=== PATIENT | male | born 1960 | race Caucasian/White ===

== ENCOUNTER → 2022-02-26 16:51 | Outpatient (BNVA) | payer SELFPAY | PROVIDERS: Family Provider Family Medicine; Visit Provider Nurse Practitioner Family | DX: Z09 Encounter for follow-up examination after completed treatment for conditions other than malignant neoplasm (principal); S29.9XXA Unspecified injury of thorax, initial encounter; Z13.6 Encounter for screening for cardiovascular disorders; X58.XXXA Exposure to other specified factors, initial encounter | CPT/HCPCS: 80053; 80061; 84443 ==

== ENCOUNTER 2022-11-20 13:00 | Outpatient (CLI) | payer OTHER, SELFPAY ==
--- NOTE | 2022-11-20 13:21 | XR_ITS ---
WS: [id number] Exam: XR lumbar spine 2-3V* [id number] Date/Time of Exam: 11/20/2022 1:28 PM Reason For Exam: REDUCED ROM POSITIVE SLR There is mild compression deformity of the upper plate of L1 without significant vertebral height los s or posterior displacement. Fracture age is difficult to determine. The remaining lumbar vertebra ar e intact. Disc spaces relatively well maintained. Mild dextroscoliosis. Mild facet DJD. Aortoiliac at herosclerosis. Moderate amount retained stool seen throughout the visualized large bowel. XR/XR lumbar spine 2-3V* [id number] IMPRESSION: 1. Mild compression deformity of the upper plate of L1 without significant disp lacement. Fracture age is difficult to determine and should be correlated clini keli. Further workup with CT might be considered. 2. Mild degenerative changes and mild dextroscoliosis. 3. Constipation.
--- NOTE | 2022-11-20 13:21 | XR_ITS ---
WS: [id number] Exam: XR shoulder LT min 2V* [id number] Date/Time of Exam: 11/20/2022 1:28 PM Reason For Exam: REDUCED ROM PAIN IN SHOULDER There is a midshaft fracture of the left clavicle. This may represent an acute fracture. No other fra ctures of the shoulder are noted. Degenerative change at the AC joint. Normal soft tissues. Plate and screw fixation of multiple upper left ribs. Recommendations: Dedicated radiographic evaluation of the left clavicle could be helpful for further workup. XR/XR shoulder LT min 2V* [id number] IMPRESSION: 1. Midshaft clavicle fracture. Age indeterminate but this could be a recent fra cture. 2. AC joint DJD.
== END 2022-11-20 13:01 | disposition home or self-care (01) ==
PROVIDERS: PCP Family Medicine; Visit Provider Family Medicine
DX: S42.018A Nondisplaced fracture of sternal end of left clavicle, initial encounter for closed fracture (principal); S32.019A Unspecified fracture of first lumbar vertebra, initial encounter for closed fracture; M19.012 Primary osteoarthritis, left shoulder; M47.816 Spondylosis without myelopathy or radiculopathy, lumbar region; M41.9 Scoliosis, unspecified; K59.00 Constipation, unspecified; X58.XXXA Exposure to other specified factors, initial encounter
CPT/HCPCS: 72100; 73030

== ENCOUNTER 2023-04-23 11:03 | Emergency (ER) | payer MEDICARE, SELFPAY ==
[2023-04-23 11:15] VITALS: BP 128/75; PULSE 65; RESP 18; TEMP 36.6; O2SAT 96; BMI 26.2
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
== END 2023-04-23 11:43 | disposition home or self-care (01) ==
PROVIDERS: Emergency Provider Internal Medicine; PCP Internal Medicine
DX: L76.34 Postprocedural seroma of skin and subcutaneous tissue following other procedure (principal); Y83.8 Other surgical procedures as the cause of abnormal reaction of the patient, or of later complication, without mention of misadventure at the time of the procedure; Z87.891 Personal history of nicotine dependence
CPT/HCPCS: 99281

== ENCOUNTER → 2023-06-03 09:35 | Outpatient (BNVA) | payer MEDICARE, SELFPAY | PROVIDERS: PCP Internal Medicine; Visit Provider Surgery | DX: R22.2 Localized swelling, mass and lump, trunk (principal) | CPT/HCPCS: 99203 ==

== ENCOUNTER 2023-06-09 04:44 | Emergency (ER) | payer MEDICARE, SELFPAY ==
[2023-06-09 04:46] VITALS: BP 104/62; PULSE 56; RESP 16; TEMP 37.2; O2SAT 94; BMI 24.9
--- NOTE | 2023-06-09 05:22 | XR_ITS ---
WS: [id number] ABDOMEN 1 VIEW(S) HISTORY: Diffuse abdominal pain. COMPARISON: None available. Marked fecal retention. Increased ureter within the colon. No obstructive pattern. Well-circumscribed density measures 2.1 cm just to the RIGHT of L4-5 was not present on the most recent examination of 11/20/2022. May be fecal ball. No calcifications. Rotary scoliosis lumbar spine. IMPRESSION: Moderate constipation.
--- NOTE | 2023-06-09 05:24 | ED_ITS ---
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 C ommunication is by writing questions and having him answer verbally. He presents with epigastric pain this morning. He notes that he awoke with pain. He has had this similar pain for a few weeks now on and off. He had some dry heaving this morning. No vomiting. No fever. He had diarrhea couple of weeks ago. None currently. No history of belly surgery. He became anxious over his pain this morning and called an ambulance. Associated Symptoms: Denies chills, diarrhea, fever(s), hematochezia and vomiting Review of Systems 2 Const: Denies: fever(s), chills or body aches Eyes: Denies: change in vision Card: Denies: chest pain or palpitations Resp: Denies: dyspnea, productive cough, non-productive cough or wheezing GI: Denies: vomiting, diarrhea or hematochezia Skin/Breast: Denies: rash Neuro: Denies: headache(s), weakness in extremities, dizziness or confusion PFSH ED 2 PFSH: Family History Father Cancer Social History Smoking and tobacco/nicotine status: former use of tobacco/nicotine Alcohol intake: never Physical Exam 2 Const: COMMON NORMALS: no acute distress GENERAL APPEARANCE: cooperative; not ill appearing and not frail appearing HENMT: COMMON NORMALS: normocephalic, atraumatic and Normal external nose present HEAD & SCALP: normocephalic and atraumatic FACE & SINUS: normal facial exam and face symmetric NOSE: Normal external nose present Eye: COMMON NORMALS: Equal, round and reactive pupils present and EOMs intact bilaterally PUPIL: Yes Equal, round and reactive pupils present Neck/C-Spine: GENERAL: Yes trachea midline Chest: CHEST: Yes Symmetrical chest wall rise Resp: COMMON NORMALS: normal respiratory effort, No retractions, No use of accessory muscles and clear to auscultation bilaterally AUSCULTATION: clear to auscultation bilaterally Cardio: COMMON NORMALS: regular rate and regular rhythm RATE: regular rate RHYTHM: regular rhythm GI: COMMON NORMALS: Normal to inspection, nondistended, normoactive bowel sounds present PALPATION: Yes Tenderness to palpation present (GI) (epigastric) Extremity: COMMON NORMALS: no pedal edema Neuro: GISELE COMA SCALE: document GCS findings Gisele coma scale eye opening: Spontaneous Gisele coma scale verbal response: Orientated [place] coma scale motor response: Obey commands Howe coma scale total score: 15 S ENSORY EXAM: Yes extremities (intact) Psych: COMMON NORMALS: speech normal SPEECH: Yes normal speech Skin: COMMON NORMALS: no rashes or lesions noted GENERAL SKIN EXAM: no rashes or lesions noted Course 2 Vital Signs: Vital signs: Vital Signs Temperature 99.0 F 06/09/23 04:46 Pulse Rate 51 L 06/09/23 06:16 Respiratory Rate 17 06/09/23 06:11 Blood Pressure 117/62 06/09/23 06:16 Pulse Oximetry 93 06/09/23 06:16 Oxygen Delivery Me thod Room Air 06/09/23 06:16 MDM - Abdominal Pain Medical Decision Making 63 year old gentleman with epigastric pain, and anxiety. His vitals are stable. Platelet count is 142, this is a chronic problem for him. Other CBC parameters are normal period BMP is not remarkable. Liver enzymes are normal period CRP's mildly elevated. Lipase is normal at 23. KUB is non acute. He'll be discharged. Outpatient follow up. Return for worsening symptoms. Lab Data 06/09/23 05:46 06/09/23 05:46 Labs/Radiology: Laboratory Results WBC 6.85 10^3/uL (3.29-11.43) 06/09/23 05:46 RBC 4.96 10^6/uL (3.85-5.65) 06/09/23 05:46 Hgb 15.50 g/dL (11.27-16.99) 06/09/23 05:46 Hct 45.9 % (37-53) 06/09/23 05:46 MCV 92.5 fl (82-101) 06/09/23 05:46 MCH 31.3 pg (27-33) 06/09/23 05:46 MCHC 33.8 g/dL (30-55) 06/09/23 05:46 RDW 12.2 % (12.1-15.1) 06/09/23 05:46 Plt Count 142 10^3/cmm (157-399) L 06/09/23 05:46 MPV 10.8 fL (7.4-10.4) H 06/09/23 05:46 Neut % (Auto) 78.0 % 06/09/23 05:46 Lymph % (Auto) 10.7 % 06/09/23 05:46 [place] % (Auto) 10.5 % 06/09/23 05:46 Eos % (Auto) 0.1 % 06/09/23 05:46 Baso % (Auto) 0.1 % 06/09/23 05:46 Neut # (Auto) 5.34 10^3/uL (1.8-7.7) 06/09/23 05:46 Lymph # (Auto) 0.7 10^3/uL (0.8-4.8) L 06/09/23 05:46 [place] # (Auto) 0.7 10^3/uL (0.2-0.9) 06/09/23 05:46 Eos # (Auto) 0.0 10^3/uL (0.0-0.8) 06/09/23 05:46 Baso # (Auto) 0.0 10^3/uL (0.0-0.1) 06/09/23 05:46 Nucleated RBC % (auto) 0 % 06/09/23 05:46 Nucleated RBCs # 0.0 /100WBC 06/09/23 05:46 Sodium 141 mmol/L (136-145) 06/09/23 05:46 Potassium 3.8 mmol/L (3.5-5.1) 06/09/23 05:46 Chloride 104 mmol/L (98-107) 06/09/23 05:46 Carbon Dioxide 28 mmol/L (22-29) 06/09/23 05:46 Anion Gap 12.8 (5-19) 06/09/23 05:46 BUN 22 mg/dL (8-23) 06/09/23 05:46 Creatinine 0.8 mg/dL (0.7-1.2) 06/09/23 05:46 GFR Calculation 97.0 mL/min (90-130) 06/09/23 05:46 Glucose 119 mg/dL (65-115) H 06/09/23 05:46 Calculated Osmolality 296 mOsm/kg (285-295) H 06/09/23 05:46 Calcium 8.6 mg/dL (8.5-10.5) 06/09/23 05:46 Total Bilirubin 0.4 mg/dL (0.15-1.2) 06/09/23 05:46 AST 23 U/L (0-40) 06/09/23 05:46 ALT 36 U/L (0-41) 06/09/23 05:46 Alkaline Phosphatase 68 U/L (40-130) 06/09/23 05:46 C-Reactive Protein 29.3 mg/L (0.0-4.9) H 06/09/23 05:46 Total Protein 6.9 g/dL (6.6-8.7) 06/09/23 05:46 Albumin 3.5 g/dL (3.5-5.2) 06/09/23 05:46 Globulin 3.4 g/dL (1.3-4.6) 06/09/23 05:46 Lipase 23 U/L (13-60) 06/09/23 05:46 All radiology interpretation(s) finalized by discharge Discharge Plan Discharge Patient Disposition: Home Clinical Impression: Gastritis, Constipation Condition: Stable Prescriptions: New sucralfate 1 gram tablet 1 g PO TID 28 Days Qty: 84 0RF Prevacid 30 mg capsule,delayed release(DR/EC) 30 mg PO DAILY Qty: 30 0RF magnesium citrate Solution 300 ml PO DAILY PRN (Reason: constipation) Qty: 296 0RF No Action acetaminophen [Tylenol] 325 mg tablet See Rx Instructions PO QID PRN Rx Instructions: every 6 hours orally four times daily PRN; polyethylene glycol 3350 [Miralax] 17 gram/dose powder 17 g PO DAILY Qty: 850 0RF hydrocodone-acetaminophen 10-325 mg tablet 1 tab PO Q6H PRN (Reason: pain) 5 Days Qty: 30 0RF gabapentin 100 mg capsule 100 mg PO TID Qty: 90 5RF Naprosyn 500 mg tablet 500 mg PO BID PRN (Reason: pain) Qty: 14 0RF Discharge Orders: Discharge ED (Routine); Ordered 06/09/23 Ordered By: Willy Hannon Referrals: Vannessa Jauregui [Primary Care Provider] - 1-3 days Patient Instructions: Gastritis (ED), Constipation (ED) Activity Restrictions/Additional Instructions: Medications as directed. Return for fever, vomiting liquids despite treatment, worsening pain despite treatment, other concerning symptoms. Take the sucralfate 30 minutes prior to meals. See your doctor this week. Coding Level of Care Code ED Industrial Education Instructor for Amelia Lyman
[2023-06-09] MEDS: ondansetron 2 mg/ML SDV 2 mL 4 MG IVP (06:09)
[2023-06-09 06:11] VITALS: RESP 17
[2023-06-09] MEDS: morphine 4 mg/mL SDV 1 mL IVP (06:11)
[2023-06-09 06:16] VITALS: BP 117/62; PULSE 51; O2SAT 93
[2023-06-09 06:22] LABS: Basophils % 0.1 %; Eosinophils % 0.1 %; Hematocrit 45.9 % (37-53); Lymphocytes # 0.7 10^3/uL (0.8-4.8); Lymphocytes % 10.7 %; Mean Corpuscular HGB Conc 33.8 g/dL (30-55); Mean Corpuscular Hemoglobin 31.3 pg (27-33); Mean Corpuscular Volume 92.5 fl (82-101); Mean Platelet Volume 10.8 fL (7.4-10.4); Monocytes # 0.7 10^3/uL (0.2-0.9); Monocytes % 10.5 %; Neutrophils # 5.34 10^3/uL (1.8-7.7); Nucleated Red Blood Cells % 0 %; Platelet Count 142 10^3/cmm (157-399); Red Blood Count 4.96 10^6/uL (3.85-5.65); Red Cell Distribution Width 12.2 % (12.1-15.1); White Blood Count 6.85 10^3/uL (3.29-11.43)
[2023-06-09 06:29] LABS: Alanine Aminotransferase 36 U/L (0-41); Albumin Level 3.5 g/dL (3.5-5.2); Alkaline Phosphatase 68 U/L (40-130); Anion Gap 12.8 (5-19); Aspartate Amino Transferase 23 U/L (0-40); Blood Urea Nitrogen 22 mg/dL (8-23); C Reactive Protein 29.3 mg/L (0.0-4.9); Calcium 8.6 mg/dL (8.5-10.5); Carbon Dioxide 28 mmol/L (22-29); Chloride 104 mmol/L (98-107); Globulin 3.4 g/dL (1.3-4.6); Glucose 119 mg/dL (65-115); Lipase 23 U/L (13-60); Osmolality Calculated 296 mOsm/kg (285-295); Potassium 3.8 mmol/L (3.5-5.1); Sodium 141 mmol/L (136-145); Total Bilirubin 0.4 mg/dL (0.15-1.2); Total Protein 6.9 g/dL (6.6-8.7)
== END 2023-06-09 07:20 | disposition home or self-care (01) ==
PROVIDERS: Emergency Provider Emergency Medicine; PCP Internal Medicine
DX: K29.70 Gastritis, unspecified, without bleeding (principal); K59.00 Constipation, unspecified; Z87.891 Personal history of nicotine dependence
CPT/HCPCS: 36415; 74018; 80053; 83690; 85025; 86140; 96374; 96375; 99284; J2270; J2405

== ENCOUNTER 2023-06-13 15:19 | Outpatient (CLI) | payer MEDICARE, SELFPAY ==
--- NOTE | 2023-06-13 16:00 | US_ITS ---
WS: [id number] ULTRASOUND SOFT TISSUES LEFT upper back. HISTORY: US left sided back mass COMPARISON: None available. TECHNIQUE: 2-D and color Doppler imaging is submitted. Ultrasound directed over the palpable area along the LEFT upper back. This is also near a scar site. As per history this palpable area is at a prior thoracotomy site. There is a complex fluid collection near the scar site extending over a length of 4.8 cm x 2.8 x 1.2 cm. There is very slight increased vascularity. There is mobile debris and there is mild wall thickening of this collection. IMPRESSION: Complex fluid collection along the posterior LEFT upper back at the site of the scar and the palpable abnormality. This is at the site of the prior thoracotomy. Complex collection is most likely a proce dure fluid collection, seroma or hematoma. Abscess cannot be excluded.
== END 2023-06-13 15:20 | disposition home or self-care (01) ==
LOC: RAD 15:19
PROVIDERS: PCP Internal Medicine; Visit Provider Surgery
DX: R22.2 Localized swelling, mass and lump, trunk (principal); Z98.890 Other specified postprocedural states
CPT/HCPCS: 76882

== ENCOUNTER 2023-06-17 16:25 | Emergency (ER) | payer MEDICARE, SELFPAY ==
[2023-06-17 16:26] VITALS: BP 122/68; PULSE 54; RESP 18; TEMP 36.7; O2SAT 98; BMI 25.5
--- NOTE | 2023-06-17 16:39 | XRR_ITS ---
PROCEDURE INFORMATION: Exam: XR Abdomen Exam date and time: 06/17/2023 4:46 PM Age: 63 years old Clinical indication: Constipation TECHNIQUE: Imaging protocol: Radiologic exam of the abdomen. Views: Frontal supine view of the abdomen. 1 View. COMPARISON: CR (ABDOMEN, ) 06/09/2023 5:30 AM FINDINGS: Gastrointestinal tract: Mild diffuse gaseous distention of bowel. Intraperitoneal space: No free air or obstruction. Bones/joints: Unremarkable. XR/XR KUB portable [id number] IMPRESSION: Mild diffuse gaseous distention of bowel.
--- NOTE | 2023-06-17 16:41 | ED_ITS ---
HPI - Abdominal Pain 2 General: Chief Complaint: Abdominal Pain Stated Complaint: Constipation x 1 week Time Seen by Provider: 06/17/23 16:34 Source: patient and EMS Mode of arrival: EMS Limitations: no limitations History of Present Illness: 63-year-old male had a history of consti pation states that he has not had a good bowel movement over the last week. States he had a little decreased appetite as well and states he is just felt generally weak. Had some abdominal cramping denies any severe abdominal pain denies any vomiting no fevers denies any chest pain. Associated Symptoms: Reports constipation; Denies chills, diarrhea, dysuria, fever(s), nausea and vomiting Review of Systems 2 Const: Denies: fever(s), chills, body aches or change in appetite ENMT: Denies: throat pain or dental pain Card: Denies: chest pain Resp: Denies: dyspnea GI: Reports: abdominal pain and constipation; Denies: nausea, vomiting or diarrhea : Denies: dysuria Musc: Denies: neck pain or back pain Skin/Breast: Denies: rash Neuro: Denies: headache(s) Psych: Reports: anxiety PFSH ED 2 PFSH: Family History Father Cancer Social History Smoking and tobacco/nicotine status: former use of tobacco/nicotine Alcohol intake: never Physical Exam 2 Const: COMMON NORMALS: no acute distress, patient oriented x3 and healthy appearing HENMT: COMMON NORMALS: normocephalic and atraumatic HEAD & SCALP: n ormocephalic and atraumatic Eye: COMMON NORMALS: Equal, round and reactive pupils present and EOMs intact bilaterally PUPIL: Yes Equal, round and reactive pupils present Neck/C-Spine: COMMON NORMALS: full ROM and supple Chest: COMMONS NORMALS: normal inspection of the chest and normal palpation of entire chest wall Resp: COMMON NORMALS: normal respiratory effort, No retractions, No use of accessory muscles and clear to auscultation bilaterally AUSCULTATION: clear to auscultation bilaterally Cardio: COMMON NORMALS: regular rate, regular rhythm and No murmurs present (Cardio) RATE: regular rate RHYTHM: regular rhythm GI: COMMON NORMALS: Normal to inspection, nondistended, normoactive bowel sounds present, Soft to palpation, non-tender and no masses PALPATION: Yes Soft to palpation Extremity: COMMON NORMALS: normal to inspection and full ROM Neuro: COMMON NORMALS: patient oriented x3, moves all extremities and no focal motor deficits Psych: COMMON NORMALS: mental status grossly normal, Normal thought process present and cooperative THOUGHT PROCESS: Normal thought process present Skin: COMMON NORMALS: no rashes or lesions noted and no wounds GENERAL SKIN EXAM: no rashes or lesions noted Course 2 Vital Signs: Vital signs: Vital Signs Temperature 98.1 F 06/17/23 16:26 Pulse Rate 54 L 06/17/23 16:26 Respiratory Rate 18 06/17/23 16:26 Blood Pressure 122/68 06/17/23 16:26 Pulse Oximetry 98 06/17/23 16:26 Oxygen Delivery Me thod Room Air 06/17/23 16:26 MDM - Abdominal Pain Medical Decision Making Patient presents here with abdominal pain his exam here is benign blood work is normal no signs of acute surgical abdomen he is stable for discharge he is follow-up with PCP and return if worsening. Medical Records I reviewed the patient's medical records. Lab Data I reviewed the patient's lab results. 06/17/23 16:55 06/17/23 16:55 Labs/Radiology: Radiology Impressions KUB X-Ray 06/17/23 16:39 IMPRESSION: Mild diffuse gaseous distention of bowel. Laboratory Results WBC 6.99 10^3/uL (3.29-11.43) 06/17/23 16:55 RBC 4.61 10^6/uL (3.85-5.65) 06/17/23 16:55 Hgb 14.20 g/dL (11.27-16.99) 06/17/23 16:55 Hct 43.5 % (37-53) 06/17/23 16:55 MCV 94.4 fl (82-101) 06/17/23 16:55 MCH 30.8 pg (27-33) 06/17/23 16:55 MCHC 32.6 g/dL (30-55) 06/17/23 16:55 RDW 12.1 % (12.1-15.1) 06/17/23 16:55 Plt Count 295 10^3/cmm (157-399) 06/17/23 16:55 MPV 9.8 fL (7.4-10.4) 06/17/23 16:55 Neut % (Auto) 65.1 % 06/17/23 16:55 Lymph % (Auto) 21.3 % 06/17/23 16:55 [place] % (Auto) 10.3 % 06/17/23 16:55 Eos % (Auto) 1.1 % 06/17/23 16:55 Baso % (Auto) 0.6 % 06/17/23 16:55 Neut # (Auto) 4.55 10^3/uL (1.8-7.7) 06/17/23 16:55 Lymph # (Auto) 1.5 10^3/uL (0.8-4.8) 06/17/23 16:55 [place] # (Auto) 0.7 10^3/uL (0.2-0.9) 06/17/23 16:55 Eos # (Auto) 0.1 10^3/uL (0.0-0.8) 06/17/23 16:55 Baso # (Auto) 0.0 10^3/uL (0.0-0.1) 06/17/23 16:55 Nucleated RBC % (auto) 0 % 06/17/23 16:55 Nucleated RBCs # 0.0 /100WBC 06/17/23 16:55 Sodium 141 mmol/L (136-145) 06/17/23 16:55 Potassium 4.3 mmol/L (3.5-5.1) 06/17/23 16:55 Chloride 103 mmol/L (98-107) 06/17/23 16:55 Carbon Dioxide 30 mmol/L (22-29) H 06/17/23 16:55 Anion Gap 12.3 (5-19) 06/17/23 16:55 BUN 15 mg/dL (8-23) 06/17/23 16:55 Creatinine 0.8 mg/dL (0.7-1.2) 06/17/23 16:55 GFR Calculation 97.0 mL/min (90-130) 06/17/23 16:55 Glucose 111 mg/dL (65-115) 06/17/23 16:55 Calculated Osmolality 294 mOsm/kg (285-295) 06/17/23 16:55 Calcium 8.6 mg/dL (8.5-10.5) 06/17/23 16:55 Total Bilirubin 0.3 mg/dL (0.15-1.2) 06/17/23 16:55 AST 19 U/L (0-40) 06/17/23 16:55 ALT 41 U/L (0-41) 06/17/23 16:55 Alkaline Phosphatase 74 U/L (40-130) 06/17/23 16:55 Total Protein 6.7 g/dL (6.6-8.7) 06/17/23 16:55 Albumin 3.5 g/dL (3.5-5.2) 06/17/23 16:55 Globulin 3.2 g/dL (1.3-4.6) 06/17/23 16:55 Lipase 52 U/L (13-60) 06/17/23 16:55 All radiology interpretation(s) finalized by discharge Discharge Plan Discharge Patient Disposition: Home Clinical Impression: Abdominal pain Qualifiers: Abdominal location: generalized Qualified Code(s): R10.84 - Generalized abdominal pain Condition: Stable Prescriptions: New ondansetron 4 mg tablet,disintegrating 4 mg PO Q6H PRN (Reason: nausea and vomiting) Qty: 14 0RF No Action acetaminophen [Tylenol] 325 mg tablet See Rx Instructions PO QID PRN Rx Instructions: every 6 hours orally four times daily PRN; polyethylene glycol 3350 [Miralax] 17 gram/dose powder 17 g PO DAILY Qty: 850 0RF hydrocodone-acetaminophen 10-325 mg tablet 1 tab PO Q6H PRN (Reason: pain) 5 Days Qty: 30 0RF gabapentin 100 mg capsule 100 mg PO TID Qty: 90 5RF sucralfate 1 gram tablet 1 g PO TID 28 Days Qty: 84 0RF Prevacid 30 mg capsule,delayed release(DR/EC) 30 mg PO DAILY Qty: 30 0RF magnesium citrate Solution 300 ml PO DAILY PRN (Reason: constipation) Qty: 296 0RF Naprosyn 500 mg tablet 500 mg PO BID PRN (Reason: pain) Qty: 14 0RF Discharge Orders: Discharge ED (Routine); Ordered 06/17/23 Ordered By: Mariano Conway Referrals: Vannessa Jauregui [Primary Care Provider] - 1-3 days Discharge Diet: Advance as tolerated Discharge Activity: Resume usual activity Patient Instructions: Abdominal Pain (ED) Coding Level of Care Code ED [employer] Consultant for Amelia Lyman
[2023-06-17 17:04] LABS: Basophils % 0.6 %; Eosinophils # 0.1 10^3/uL (0.0-0.8); Eosinophils % 1.1 %; Hematocrit 43.5 % (37-53); Lymphocytes # 1.5 10^3/uL (0.8-4.8); Lymphocytes % 21.3 %; Mean Corpuscular HGB Conc 32.6 g/dL (30-55); Mean Corpuscular Hemoglobin 30.8 pg (27-33); Mean Corpuscular Volume 94.4 fl (82-101); Mean Platelet Volume 9.8 fL (7.4-10.4); Monocytes # 0.7 10^3/uL (0.2-0.9); Monocytes % 10.3 %; Neutrophils # 4.55 10^3/uL (1.8-7.7); Neutrophils % 65.1 %; Nucleated Red Blood Cells % 0 %; Platelet Count 295 10^3/cmm (157-399); Red Blood Count 4.61 10^6/uL (3.85-5.65); Red Cell Distribution Width 12.1 % (12.1-15.1); White Blood Count 6.99 10^3/uL (3.29-11.43)
[2023-06-17] MEDS: sodium chloride 0.9% 1,000 ML 999 ML IV (17:21)
[2023-06-17] MEDS: ondansetron 2 mg/ML SDV 2 mL 4 MG IVP (17:21)
[2023-06-17 17:25] LABS: Alanine Aminotransferase 41 U/L (0-41); Albumin Level 3.5 g/dL (3.5-5.2); Alkaline Phosphatase 74 U/L (40-130); Anion Gap 12.3 (5-19); Aspartate Amino Transferase 19 U/L (0-40); Blood Urea Nitrogen 15 mg/dL (8-23); Calcium 8.6 mg/dL (8.5-10.5); Carbon Dioxide 30 mmol/L (22-29); Chloride 103 mmol/L (98-107); Globulin 3.2 g/dL (1.3-4.6); Glucose 111 mg/dL (65-115); Lipase 52 U/L (13-60); Osmolality Calculated 294 mOsm/kg (285-295); Potassium 4.3 mmol/L (3.5-5.1); Sodium 141 mmol/L (136-145); Total Bilirubin 0.3 mg/dL (0.15-1.2); Total Protein 6.7 g/dL (6.6-8.7)
[2023-06-17 19:17] VITALS: BP 131/72; PULSE 50; RESP 16; O2SAT 100
== END 2023-06-17 19:18 | disposition home or self-care (01) ==
PROVIDERS: Emergency Provider Emergency Medicine; PCP Internal Medicine
DX: R10.84 Generalized abdominal pain (principal); Z87.891 Personal history of nicotine dependence
CPT/HCPCS: 74018; 80053; 83690; 85025; 96361; 96374; 99284; J2405; J7030

== ENCOUNTER → 2023-07-17 13:51 | Outpatient (BNVA) | payer MEDICARE, SELFPAY | PROVIDERS: PCP Internal Medicine; Visit Provider Surgery | DX: Z09 Encounter for follow-up examination after completed treatment for conditions other than malignant neoplasm (principal) | CPT/HCPCS: 99214 ==

== ENCOUNTER 2023-08-10 11:36 | Emergency (ER) | payer MEDICARE, SELFPAY ==
[2023-08-10 12:13] VITALS: BP 96/61; PULSE 56; RESP 14; TEMP 36.3; O2SAT 98; BMI 26.2
[2023-08-10 14:22] LABS: Influenza A by IFA negative (Negative); Influenza B by IFA negative (Negative); SARS Covid-2 Antigen negative (Negative)
--- NOTE | 2023-08-10 14:29 | W.ED.GENADLT ---
HPI - General Adult General: Chief complaint: Upper Respiratory Infection Stated complaint: sore throat, headache Time Seen by Provider: 08/10/23 14:12 Source: patient and family Mode of arrival: ambulatory Limitations: no limitations History of Present Illness: Patient is a 63-year-old male who presents to the ED today along with another individual for complaints of a sore throat. Patient unfortunately is an extremely poor historian. He brings with him a bottle of Clarithromycin. He tells me he was placed on this medication due to a stomach infection . They cannot seem to tell me anything else in regards to this however when asked if he was placed on other medications he does tell me he believes there was another antibiotic and some type of stomach pill . Patient wonders if his sore throat could be secondary to the Clarithromycin or if it is related to the stomach infection . When I asked him what symptoms he was having to be tested for presumed H. pylori he responds sore throat and then laughs and states he has had that symptoms for a long time. He then mentions a headache reporting he has pain in his frontal sinuses but then tells me he has also had this symptom intermittently for years . He is not having any difficulty eating, drinking, swallowing, controlling secretions. No neck pain or swelling. He has no visual changes or difficulty ambulating. Onset (ago): unknown Location: head (frontal sinus) and mouth (throat) Severity: mild Relieving factors: none Exacerbating factors: none Associated symptoms: Reports headache(s) (states frontal sinus headache ); Deny chest pain, dyspnea, malaise, nausea, rash or vomiting Treatments prior to arrival: other (placed on new meds for stomach infection ) Review of Systems Const: Denies: fever(s), chills, body aches, fatigue or malaise Eyes: Denies: change in vision, blurry vision, photophobia, floaters or seeing flashes ENMT: Reports: throat pain, odynophagia and sinus pain (frontal sinus); Denies: uvular edema, enlarged tonsils, hoarseness, mouth pain, swelling of lips/tongue, oral sores, ear or mastoid pain, nasal discharge or nasal congestion Card: Denies: chest pain Resp: Denies: dyspnea GI: Denies: abdominal pain, nausea, vomiting or diarrhea : Denies: flank pain, difficulty urinating, dysuria, urinary frequency, urinary urgency or urinary hesitancy Musc: Reports: back pain (related to a chronic cyst/seroma/lipoma overlying L scapular incision); Denies: neck pain, extremity pain or joint pain Skin/Breast: Denies: rash Neuro: Reports: headache(s) (states frontal sinus headache ); Denies: numbness in extremities, weakness in extremities, sensory changes, lack of coordination, difficulty walking or dizziness PFSH ED PFSH: Family History Father Cancer Social History Smoking and tobacco/nicotine status: former use of tobacco/nicotine Alcohol intake: never Substance/Drug Use: never Physical Exam Const: COMMON NORMALS: no acute distress, average body habitus, patient oriented x3, alert and well nourished EXAM LIMITATIONS: other limitations (patient is a very poor historian) GENERAL APPEARANCE: cooperative ORIENTATION/CONSCIOUSNESS: Yes awake, Yes oriented to person, Yes oriented to place and Yes oriented to time HENMT: COMMON NORMALS: normocephalic, atraumatic and Normal external nose present HEAD & SCALP: normocephalic and atraumatic FACE & SINUS: sinus tenderness frontal NOSE: Normal external nose present MOUTH: Normal oral and palatal mucosa present and lip normal THROAT: posterior oropharynx normal and tonsils normal; no uvular edema Eye: GENERAL EYE: appearance normal, both eyes and all related structures Neck/C-Spine: COMMON NORMALS: full ROM, no lymphadenopathy and no JVD GENERAL: Yes normal visual inspection, No anterior neck swelling and No submandibular swelling Resp: COMMON NORMALS: normal respiratory effort and clear to auscultation bilaterally AUSCULTATION: clear to auscultation bilaterally Cardio: COMMON NORMALS: no JVD, regular rate and regular rhythm RATE: regular rate RHYTHM: regular rhythm GI: COMMON NORMALS: Normal to inspection, nondistended, normoactive bowel sounds present, Soft to palpation and non-tender PALPATION: Yes Soft to palpation Neuro: GISELE COMA SCALE: document GCS findings Gisele coma scale eye opening: Spontaneous [place] coma scale verbal response: Orientated [place] coma scale motor response: Obey commands Latham coma scale total score: 15 COMMON NORMALS: patient oriented x3, CN's II-XII intact bilaterally, moves all extremities, no focal motor deficits, no sensory deficits noted and gait normal SENSORIUM/ORIENTATION: Yes alert, Yes oriented to person, Yes oriented to place and Yes oriented to time Skin: COMMON NORMALS: no rashes or lesions noted GENERAL SKIN EXAM: no rashes or lesions noted Course Vital Signs: Vital signs: Vital Signs Temperature 97.4 F L 08/10/23 14:41 Pulse Rate 56 L 08/10/23 14:41 Respiratory Rate 14 08/10/23 14:41 Blood Pressure 96/61 08/10/23 14:41 Pulse Oximetry 98 08/10/23 14:41 Oxygen Delivery Me thod Room Air 08/10/23 12:13 MDM - General Adult Medical Decision Making Patient is a 63-year-old or historian male here for complaints of a sore throat and frontal sinus pain. The symptoms seem to be chronic for patient however again I feel like history is limited. Based on what history was provided I am assuming he is on triple therapy for an H. pylori infection. Patient sees a small clinic out of town and I do not have access to any these records on a Friday afternoon. Ultimately he does not have any red flag signs or symptoms today in regards to his sore throat and sinus pain. Recommend he continue his current medication regimen and then follow-up with the provider that prescribes them so they can reassess symptoms. Medical Records I reviewed the patient's medical records. Lab Data Laboratory Results Influenza Type A Ag negative (Negative) 08/10/23 13:58 Influenza Type B Ag negative (Negative) 08/10/23 13:58 SARS-CoV-2 Ag (Rapid) negative (Negative) 08/10/23 13:58 No radiology studies performed this visit Discharge Plan Discharge Patient Disposition: Home Clinical Impression: Frontal sinus pain, Chronic sore throat Condition: Stable Prescriptions: No Action buspirone 10 mg tablet PO trazodone 50 mg tablet PO fluoxetine 20 mg capsule PO acetaminophen [Tylenol] 325 mg tablet See Rx Instructions PO QID PRN Rx Instructions: every 6 hours orally four times daily PRN; polyethylene glycol 3350 [Miralax] 17 gram/dose powder 17 g PO DAILY Qty: 850 0RF hydrocodone-acetaminophen 10-325 mg tablet 1 tab PO Q6H PRN (Reason: pain) 5 Days Qty: 30 0RF gabapentin 100 mg capsule 100 mg PO TID Qty: 90 5RF Prevacid 30 mg capsule,delayed release(DR/EC) 30 mg PO DAILY Qty: 30 0RF magnesium citrate Solution 300 ml PO DAILY PRN (Reason: constipation) Qty: 296 0RF ondansetron 4 mg tablet,disintegrating 4 mg PO Q6H PRN (Reason: nausea and vomiting) Qty: 14 0RF Naprosyn 500 mg tablet 500 mg PO BID PRN (Reason: pain) Qty: 14 0RF Discharge Orders: Discharge ED (Routine); Ordered 08/10/23 Ordered By: Lydia Goldsmith Referrals: Vannessa Jauregui [Primary Care Provider] - Activity Restrictions/Additional Instructions: As we discussed I want you to continue your current prescribed medications for treatment of presumed H. pylori. Following completion of therapy I would like you to follow-up with your primary care provider for further evaluation of symptoms. You may return to the emergency department for any difficulty swallowing, drooling, difficulty breathing, severe headache or visual changes, or any other concerns you may have. Coding Level of Care Code ED Information Technology Internship for Amelia Lyman
[2023-08-10 14:41] VITALS: BP 96/61; PULSE 56; RESP 14; TEMP 36.3; O2SAT 98
== END 2023-08-10 14:49 | disposition home or self-care (01) ==
PROVIDERS: Emergency Medicine; Emergency Provider Physician Assistant; PCP Internal Medicine
DX: J31.2 Chronic pharyngitis (principal); R51.9 Headache, unspecified; Z11.52 Encounter for screening for COVID-19
CPT/HCPCS: 87426; 87804; 99283

== ENCOUNTER → 2023-08-18 09:41 | Outpatient (BNVA) | payer MEDICARE, SELFPAY | PROVIDERS: PCP Internal Medicine; Visit Provider Thoracic Surgery (Cardiothoracic Vascular Surgery) | DX: R22.2 Localized swelling, mass and lump, trunk (principal); S29.9XXA Unspecified injury of thorax, initial encounter; Y99.9 Unspecified external cause status | CPT/HCPCS: 71046; 99203 ==

== ENCOUNTER → 2023-12-08 14:13 | Outpatient (BNVA) | payer MEDICARE, SELFPAY | PROVIDERS: PCP Internal Medicine; Visit Provider Thoracic Surgery (Cardiothoracic Vascular Surgery) | DX: S29.9XXA Unspecified injury of thorax, initial encounter (principal); R22.2 Localized swelling, mass and lump, trunk; V87.7XXA Person injured in collision between other specified motor vehicles (traffic), initial encounter | CPT/HCPCS: 99213 ==

== ENCOUNTER 2024-01-05 11:17 | Emergency (ER) | payer MEDICARE, SELFPAY ==
[2024-01-05 11:20] VITALS: BP 113/63; PULSE 51; RESP 20; TEMP 36.6; O2SAT 98; BMI 24.9
--- NOTE | 2024-01-05 11:22 | ECG_ITS ---
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 Measurements Intervals [place] Rate: 50 P: 35 [place]: 176 QRS: -29 QRSD: 110 T: 221 QT: 438 QTc: 403 Interpretive Statements SINUS BRADYCARDIA BORDERLINE LEFT AXIS DEVIATION [QRS AXIS < -20] ST DEVIATION AND MODERATE T-WAVE ABNORMALITY, CONSIDER LATERAL ISCHEMIA [-0.1+ mV T-WAVE IN I/aVL/V5/V6] No previous ECG available for comparison Electronically Signed On 01-05-2024 14:21:17 CDT by Gorge Evans M.D. [id number] f
--- NOTE | 2024-01-05 11:31 | XRR_ITS ---
PROCEDURE INFORMATION: Exam: XR Chest Exam date and time: 01/05/2024 11:35 AM Age: 63 years old Clinical indication: Pain; Angina pectoris; Prior surgery; Surgery date: 6+ months; Surgery type: Back and left ribs; Additional info: Cp TECHNIQUE: Imaging protocol: Radiologic exam of the chest. Views: 1 view. COMPARISON: CR XR chest 2V* [id number] 08/18/2023 10:46 AM FINDINGS: Lungs: Unremarkable. No consolidation. Pleural spaces: Unremarkable. No pleural effusion. No pneumothorax. Heart/Mediastinum: Unremarkable. No cardiomegaly. Vasculature: Aortic atherosclerotic calcification. Bones/joints: Stable postsurgical hardware at multiple left ribs. Degenerative changes along the spine and shoulders. XR/XR chest 1V portable [id number] IMPRESSION: No acute findings.
[2024-01-05 11:34] VITALS: BP 113/63; PULSE 51; RESP 19; O2SAT 97
--- NOTE | 2024-01-05 11:39 | ED_ITS ---
HPI - Dizziness 2 General: Chief Complaint: Dizziness Stated Complaint: dizziness Time Seen by Provider: 01/05/24 11:19 Source: patient and EMS Mode of arrival: EMS Limitations: no limitations History of Present Illness: HPI Narrative: 63-year-old male states that he has a hi story of anxiety states he has been feeling quite anxious he states he been having left chest pain for years he complained of dizziness to EMS but he denies feeling dizzy to me he states he just feels extremely anxious and having this cramping like feeling in his left chest that he states has been going on for years and denies any headache or shortness of breath. Associated symptoms: Reports chest pain; Denies chills, headache(s), nausea or vomiting Review of Systems 2 Const: Denies: fever(s), chills, body aches or change in appetite ENMT: Denies: throat pain or dental pain Card: Reports: chest pain Resp: Denies: dyspnea GI: Denies: abdominal pain, nausea, vomiting or diarrhea Musc: Denies: neck pain or back pain Skin/Breast: Denies: rash Neuro: Denies: headache(s) PFSH ED 2 PFSH: Family History Father Cancer Social History Smoking and tobacco/nicotine status: current every day tobacco/nicotine user cigarettes Packs smoked per day: 0.24 Alcohol intake: never Substance/Drug Use: never Physical Exam 2 Const: COMMON NORMALS: no acute distress, patient oriented x3 and healthy appearing HENMT: COMMON NORMALS: normocephalic and atraumatic HEAD & SCALP: n ormocephalic and atraumatic Eye: COMMON NORMALS: Equal, round and reactive pupils present and EOMs intact bilaterally PUPIL: Yes Equal, round and reactive pupils present Neck/C-Spine: COMMON NORMALS: full ROM and supple Chest: COMMONS NORMALS: normal inspection of the chest and normal palpation of entire chest wall Resp: COMMON NORMALS: normal respiratory effort, No retractions, No use of accessory muscles and clear to auscultation bilaterally AUSCULTATION: clear to auscultation bilaterally Cardio: COMMON NORMALS: regular rate, regular rhythm and No murmurs present (Cardio) RATE: regular rate RHYTHM: regular rhythm GI: COMMON NORMALS: Normal to inspection, nondistended, normoactive bowel sounds present, Soft to palpation, non-tender and no masses PALPATION: Yes Soft to palpation Extremity: COMMON NORMALS: normal to inspection and full ROM Neuro: COMMON NORMALS: patient oriented x3, moves all extremities and no focal motor deficits Psych: COMMON NORMALS: mental status grossly normal, Normal thought process present and cooperative THOUGHT PROCESS: Normal thought process present Skin: COMMON NORMALS: no rashes or lesions noted and no wounds GENERAL SKIN EXAM: no rashes or lesions noted Course 2 Vital Signs: Vital signs: Vital Signs Temperature 97.9 F 01/05/24 11:20 Pulse Rate 49 L 01/05/24 12:51 Respiratory Rate 19 H 01/05/24 11:34 Blood Pressure 122/66 01/05/24 12:51 Pulse Oximetry 98 01/05/24 12:51 Oxygen Delivery Me thod Room Air 01/05/24 12:51 MDM - Dizziness Medical Decision Making Patient presents here with anxiety and complaint of some dizziness early he has no dizziness here he is able ambulate without any difficulty patient's blood work imaging here is normal his chest pain has had has been for years he has no signs of ACS he is stable for discharge he is follow-up with PCP and return if worsening. Medical Records I reviewed the patient's medical records. Lab Data I reviewed the patient's lab results. 01/05/24 11:51 01/05/24 11:51 Radiology Impressions Chest X-Ray 01/05/24 11:31 IMPRESSION: No acute findings. Head CT 01/05/24 13:32 IMPRESSION: 1. No evidence of intracranial hemorrhage or mass effect. 2. No acute intracranial findings. Laboratory Results WBC 6.73 10^3/uL (3.29-11.43) 01/05/24 11:51 RBC 4.40 10^6/uL (3.85-5.65) 01/05/24 11:51 Hgb 13.20 g/dL (11.27-16.99) 01/05/24 11:51 Hct 40.8 % (37-53) 01/05/24 11:51 MCV 92.7 fl (82-101) 01/05/24 11:51 MCH 30.0 pg (27-33) 01/05/24 11:51 MCHC 32.4 g/dL (30-55) 01/05/24 11:51 RDW 13.1 % (12.1-15.1) 01/05/24 11:51 Plt Count 181 10^3/cmm (157-399) 01/05/24 11:51 MPV 10.0 fL (7.4-10.4) 01/05/24 11:51 Neut % (Auto) 68.1 % 01/05/24 11:51 Lymph % (Auto) 17.2 % 01/05/24 11:51 Carlton % (Auto) 9.7 % 01/05/24 11:51 Eos % (Auto) 3.6 % 01/05/24 11:51 Baso % (Auto) 1.0 % 01/05/24 11:51 Neut # (Auto) 4.58 10^3/uL (1.8-7.7) 01/05/24 11:51 Lymph # (Auto) 1.2 10^3/uL (0.8-4.8) 01/05/24 11:51 Carlton # (Auto) 0.7 10^3/uL (0.2-0.9) 01/05/24 11:51 Eos # (Auto) 0.2 10^3/uL (0.0-0.8) 01/05/24 11:51 Baso # (Auto) 0.1 10^3/uL (0.0-0.1) 01/05/24 11:51 Nucleated RBC % (auto) 0 % 01/05/24 11:51 Nucleated RBCs # 0.0 /100WBC 01/05/24 11:51 Sodium 135 mmol/L (136-145) L 01/05/24 11:51 Potassium 4.2 mmol/L (3.5-5.1) 01/05/24 11:51 Chloride 100 mmol/L (98-107) 01/05/24 11:51 Carbon Dioxide 23 mmol/L (22-29) 01/05/24 11:51 Anion Gap 16.2 (5-19) 01/05/24 11:51 BUN 18 mg/dL (8-23) 01/05/24 11:51 Creatinine 1.0 mg/dL (0.7-1.2) 01/05/24 11:51 GFR Calculation 75.0 mL/min (90-130) L 01/05/24 11:51 Glucose 96 mg/dL (65-115) 01/05/24 11:51 Calculated Osmolality 282 mOsm/kg (285-295) L 01/05/24 11:51 Calcium 8.4 mg/dL (8.5-10.5) L 01/05/24 11:51 Total Bilirubin 0.4 mg/dL (0.15-1.2) 01/05/24 11:51 AST 15 U/L (0-40) 01/05/24 11:51 ALT 17 U/L (0-41) 01/05/24 11:51 Alkaline Phosphatase 85 U/L (40-130) 01/05/24 11:51 Troponin T Baseline 20 ng/L (0-15) H 01/05/24 11:51 Troponin T 120 Minute 17.44 ng/L (0-15) H 01/05/24 13:52 Delta Troponin T -2.56 ABS# (0-10) L 01/05/24 13:52 Total Protein 6.8 g/dL (6.6-8.7) 01/05/24 11:51 Albumin 4.1 g/dL (3.5-5.2) 01/05/24 11:51 Globulin 2.7 g/dL (1.3-4.6) 01/05/24 11:51 All radiology interpretation(s) finalized by discharge Discharge Plan Discharge Patient Disposition: Home Clinical Impression: Anxiety, Dizziness Condition: Stable Prescriptions: No Action buspirone 10 mg tablet 15 mg PO BID trazodone 50 mg tablet 50 - 100 mg PO BEDTIME acetaminophen [Tylenol] 325 mg tablet 325 mg PO QID PRN (Reason: Pain) venlafaxine 37.5 mg Capsule,Extended Release 24hr 37.5 mg PO QAM sucralfate 1 gram tablet 1 g PO DAILY pantoprazole 40 mg tablet,delayed release (DR/EC) 40 mg PO DAILY hydroxyzine HCl 25 mg tablet 25 mg PO TID PRN (Reason: Anxiety) Vitamin D2 1,250 mcg (50,000 unit) capsule 1,250 mcg PO Q7D sertraline 50 mg tablet 20 mg PO DAILY Discharge Orders: Discharge ED (Routine); Ordered 01/05/24 Ordered By: Mariano Conway Referrals: Vannessa Jauregui [Primary Care Provider] - Discharge Diet: Advance as tolerated Discharge Activity: Resume usual activity Patient Instructions: Dizziness (ED), Anxiety (ED) Coding Level of Care Code ED Biological Science Technician for Amelia Lyman
[2024-01-05] MEDS: LORazepam 2 mg/mL INJ 1 mL 1 MG IVP (11:51)
[2024-01-05 12:00] LABS: Basophils # 0.1 10^3/uL (0.0-0.1); Eosinophils # 0.2 10^3/uL (0.0-0.8); Eosinophils % 3.6 %; Hematocrit 40.8 % (37-53); Lymphocytes # 1.2 10^3/uL (0.8-4.8); Lymphocytes % 17.2 %; Mean Corpuscular HGB Conc 32.4 g/dL (30-55); Mean Corpuscular Volume 92.7 fl (82-101); Monocytes # 0.7 10^3/uL (0.2-0.9); Monocytes % 9.7 %; Neutrophils # 4.58 10^3/uL (1.8-7.7); Neutrophils % 68.1 %; Nucleated Red Blood Cells % 0 %; Platelet Count 181 10^3/cmm (157-399); Red Cell Distribution Width 13.1 % (12.1-15.1); White Blood Count 6.73 10^3/uL (3.29-11.43)
[2024-01-05 12:20] LABS: Alanine Aminotransferase 17 U/L (0-41); Albumin Level 4.1 g/dL (3.5-5.2); Alkaline Phosphatase 85 U/L (40-130); Anion Gap 16.2 (5-19); Aspartate Amino Transferase 15 U/L (0-40); Blood Urea Nitrogen 18 mg/dL (8-23); Calcium 8.4 mg/dL (8.5-10.5); Carbon Dioxide 23 mmol/L (22-29); Chloride 100 mmol/L (98-107); Creatinine Clr Calc Pharmacy 88.0404; Globulin 2.7 g/dL (1.3-4.6); Glucose 96 mg/dL (65-115); Osmolality Calculated 282 mOsm/kg (285-295); Potassium 4.2 mmol/L (3.5-5.1); Sodium 135 mmol/L (136-145); Total Bilirubin 0.4 mg/dL (0.15-1.2); Total Protein 6.8 g/dL (6.6-8.7)
[2024-01-05 12:23] LABS: Troponin(5th) Baseline 20 ng/L (0-15)
[2024-01-05 12:51] VITALS: BP 122/66; PULSE 49; O2SAT 98
--- NOTE | 2024-01-05 13:32 | ECG_ITS ---
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 Measurements Intervals [place] Rate: 49 P: 16 NM: 158 QRS: -13 QRSD: 112 T: 28 QT: 449 QTc: 407 Interpretive Statements SINUS BRADYCARDIA MODERATE INTRAVENTRICULAR CONDUCTION DELAY [110+ ms QRS DURATION] NONSPECIFIC ST & T-WAVE ABNORMALITY Compared to ECG 01/05/2024 11:22:29 Intraventricular conduction delay now present Possible ischemia no longer present T-wave abnormality still present Electronically Signed On 01-05-2024 14:21:44 CDT by Gorge Evans M.D. [id number]
--- NOTE | 2024-01-05 13:32 | CT_ITS ---
WS: [id number] CT HEAD TECHNIQUE: Noncontrast CT of the head obtained from the skullbase to the vertex. CLINICAL INFORMATION: dizzy COMPARISON: None. DLP: 1166.[address] scans at [facility] use at least one of these dose optimization techniques: automated e xposure control; mA and/or kV adjustment per patient size (includes targeted exams where dose is matc hed to clinical indication); or iterative reconstruction. FINDINGS: No evidence of intracranial hemorrhage or mass effect. Ventricular system and basal cisterns are duffy nt. Moderate small vessel changes with moderate parenchymal volume loss. No extra-axial fluid collect ions. No evidence of mass or mass effect. Sinusitis in the ethmoid air cells and frontal ethmoidal recess. Small retention cyst in the LEFT max illary sinus and sphenoid sinus. CT/CT head wo con* [id number] IMPRESSION: 1. No evidence of intracranial hemorrhage or mass effect. 2. No acute intracranial findings.
[2024-01-05] MEDS: meclizine 25 mg tablet 50 MG PO (14:19)
[2024-01-05 14:24] LABS: Troponin 5 2HR 17.44 ng/L (0-15)
[2024-01-05 14:25] LABS: Troponin 5 2HR Delta -2.56 ABS# (0-10)
[2024-01-05 14:48] VITALS: BP 122/66; PULSE 49; RESP 19; TEMP 36.6; O2SAT 98
== END 2024-01-05 14:51 | disposition home or self-care (01) ==
PROVIDERS: Emergency Provider Emergency Medicine; PCP Internal Medicine
DX: F41.9 Anxiety disorder, unspecified (principal); R42 Dizziness and giddiness; F17.210 Nicotine dependence, cigarettes, uncomplicated
CPT/HCPCS: 36415; 70450; 71045; 80053; 84484; 85025; 93005; 96374; 99285; J2060; J8597

== ENCOUNTER 2024-03-16 10:29 | Emergency (ER) | payer MEDICARE, SELFPAY ==
[2024-03-16 10:34] VITALS: BP 116/70; PULSE 81; RESP 16; O2SAT 98
--- NOTE | 2024-03-16 10:41 | ED_ITS ---
HPI - Anxiety General: Chief Complaint: Anxiety Stated Complaint: mhe Time Seen by Provider: 03/16/24 10:38 Source: patient Mode of arrival: ambulatory Limitations: no limitations History of Present Illness: Patient is a 64-year-old male here for complaints of anxiety. Patient feels like he shakes all the time and attributes this to his anxiety. He is reportedly being seen by his PCP who has him on buspirone, hydroxyzine, and sertraline and venlafaxine but none of this is helping. Patient overall is a very poor historian. I personally saw patient back in July and he was a very poor historian then. None of his symptoms today are new. He tells me he takes trazodone to sleep but will wake up tremulous and contributes this to bad dreams . Patient is not suicidal or homicidal. MD complaint: anxiety Onset (ago): month(s) Severity: moderate History of similar episodes: Yes Provoking factors: none known Relieving factors: nothing Exacerbating factors: nothing Associated symptoms: Reports no associated symptoms; Deny chest pain, chills, fever(s), malaise, nausea, palpitations, syncope or vomiting Related Data Home Medications Medication Instructions Recorded Confirmed acetaminophen 325 mg tablet 325 mg PO QID PRN Pain 01/29/22 01/05/24 (Tylenol) buspirone 10 mg tablet 15 mg PO BID 07/17/23 01/05/24 trazodone 50 mg tablet 50 - 100 mg PO BEDTIME 07/17/23 01/05/24 ergocalciferol (vitamin D2) 1,250 1,250 mcg PO Q7D 01/05/24 01/05/24 mcg (50,000 unit) capsule (Vitamin D2) hydroxyzine HCl 25 mg tablet 25 mg PO TID PRN Anxiety 01/05/24 01/05/24 pantoprazole 40 mg tablet,delayed 40 mg PO DAILY 01/05/24 01/05/24 release sertraline 50 mg tablet 20 mg PO DAILY 01/05/24 01/05/24 sucralfate 1 gram tablet 1 g PO DAILY 01/05/24 01/05/24 venlafaxine 37.5 mg 37.5 mg PO QAM 01/05/24 01/05/24 capsule,extended release 24 hr Allergies Allergy/AdvReac Type Severity Reaction Status Date / Time cephalexin Allergy Unknown Verified 12/08/23 14:28 Review of Systems Const: Reports: other; Denies: fever(s), chills, body aches, fatigue or malaise Card: Denies: chest pain, palpitations, lightheadedness, syncope or pre-synco pe Resp: Denies: dyspnea GI: Denies: nausea or vomiting Skin/Breast: Denies: rash Neuro: Reports: involuntary movements; Denies: difficulty walking, frequent falls, dizziness, Slurred speech present or seizure-like activity PFSH ED PFSH: Family History Father Cancer Social History Smoking and tobacco/nicotine status: current every day tobacco/nicotine user cigarettes Packs smoked per day: 0.24 Alcohol intake: never Substance/Drug Use: never Physical Exam Const: COMMON NORMALS: no acute distress, average body habitus, no limitations, alert and well nourished GENERAL APPEARANCE: cooperative ORIENTATION/CONSCIOUSNESS: Yes awake, Yes oriented to person and Yes oriented to place OTHER: pt is hard of hearing and overall a poor historian; he seems to have a baseline cognitive decline for age HENMT: COMMON NORMALS: normocephalic and atraumatic HEAD & SCALP: normal to inspection, normocephalic and atraumatic Eye: GENERAL EYE: appearance normal, both eyes and all related structures Chest: OTHER: complains of pain along a L posterior thoracostomy site-has been seen for this by Dr. Robison several times Resp: COMMON NORMALS: normal respiratory effort Extremity: GENERAL: Yes normal exam except as noted Neuro: GISELE COMA SCALE: document GCS findings Gisele coma scale eye opening: Spontaneous Gisele coma scale verbal response: Orientated [place] coma scale motor response: Obey commands Gisele coma scale total score: 15 COMMON NORMALS: moves all extremities, no focal motor deficits, no sensory deficits noted and gait normal SENSORIUM/ORIENTATION: Yes alert, Yes oriented to person and Yes oriented to place OTHER: intermittently tremulous-worse to UEs Skin: COMMON NORMALS: no rashes or lesions noted GENERAL SKIN EXAM: no rashes or lesions noted Course Vital Signs: Vital signs: Vital Signs Pulse Rate 81 03/16/24 10:34 Respiratory Rate 16 03/16/24 10:34 Blood Pressure 116/70 03/16/24 10:34 Pulse Oximetry 98 03/16/24 10:34 MDM - Anxiety Medical Decision Making I question whether patient's shakiness and tremors are solely related to anxiety. I think given his cognitive decline for his age he needs evaluated by neurology to assess for other neurologic movement disorders i.e parkinson's dementia, etc. He is on several meds for anxiety but none of these are helping. Thought of adding a beta teresa to possibly help with tremors but BP already soft here so will hold off on this. Ultimately this is a chronic problem and I do not see any indication for emergent workup but I would like him to have further evaluation. No radiology studies performed this visit Discharge Plan Discharge Patient Disposition: Home Clinical Impression: Shakiness Condition: Stable Prescriptions: No Action buspirone 10 mg tablet 15 mg PO BID trazodone 50 mg tablet 50 - 100 mg PO BEDTIME acetaminophen [Tylenol] 325 mg tablet 325 mg PO QID PRN (Reason: Pain) venlafaxine 37.5 mg Capsule,Extended Release 24hr 37.5 mg PO QAM sucralfate 1 gram tablet 1 g PO DAILY pantoprazole 40 mg tablet,delayed release (DR/EC) 40 mg PO DAILY hydroxyzine HCl 25 mg tablet 25 mg PO TID PRN (Reason: Anxiety) Vitamin D2 1,250 mcg (50,000 unit) capsule 1,250 mcg PO Q7D sertraline 50 mg tablet 20 mg PO DAILY Discharge Orders: Discharge ED (Routine); Ordered 03/16/24 Ordered By: Lydia Goldsmith Referrals: Vannessa Jauregui [Primary Care Provider] - Activity Restrictions/Additional Instructions: As we discussed, I would like case management to help set you up with a follow- up appointment with neurology for further evaluation of your tremors as these may not be related to anxiety. You may continue to follow-up with your primary care provider in the meantime. Coding Level of Care Code ED Development Specialist for Amelia Lyman
[2024-03-16] MEDS: LORazepam 2 mg/mL INJ 1 mL 1 MG IM (11:01)
[2024-03-16 11:15] VITALS: BP 112/64; PULSE 68; O2SAT 98
--- NOTE | 2024-03-17 11:46 | DCPLANNER ---
messaged neuro for er f/u
== END 2024-03-16 11:17 | disposition home or self-care (01) ==
PROVIDERS: Emergency Provider Physician Assistant; PCP Internal Medicine
DX: R25.1 Tremor, unspecified (principal); F17.210 Nicotine dependence, cigarettes, uncomplicated
CPT/HCPCS: 96372; 99284; J2060

== ENCOUNTER 2024-03-17 18:09 | Emergency (ER) | payer MEDICARE, SELFPAY ==
[2024-03-17 18:13] VITALS: BP 146/78; PULSE 79; RESP 18; TEMP 36.7; O2SAT 98
--- NOTE | 2024-03-17 18:23 | W.ED.ANXIETY ---
HPI - Anxiety General: Chief Complaint: Anxiety Stated Complaint: MHE Anxiety Time Seen by Provider: 03/17/24 18:16 Source: patient Mode of arrival: ambulatory Limitations: no limitations History of Present Illness: 64-year-old male who states that he has been feeling anxious today. He has been seen here in the past for anxiety he is on meds he denies any suicidality or homicidality. He is well-appearing here denies any worse improving factors. Associated symptoms: Deny chest pain, chills, fever(s), headache(s), nausea or vomiting Related Data Home Medications Medication Instructions Recorded Confirmed acetaminophen 325 mg tablet 325 mg PO QID PRN Pain 01/29/22 01/05/24 (Tylenol) buspirone 10 mg tablet 15 mg PO BID 07/17/23 01/05/24 trazodone 50 mg tablet 50 - 100 mg PO BEDTIME 07/17/23 01/05/24 ergocalciferol (vitamin D2) 1,250 1,250 mcg PO Q7D 01/05/24 01/05/24 mcg (50,000 unit) capsule (Vitamin D2) hydroxyzine HCl 25 mg tablet 25 mg PO TID PRN Anxiety 01/05/24 01/05/24 pantoprazole 40 mg tablet,delayed 40 mg PO DAILY 01/05/24 01/05/24 release sertraline 50 mg tablet 20 mg PO DAILY 01/05/24 01/05/24 sucralfate 1 gram tablet 1 g PO DAILY 01/05/24 01/05/24 venlafaxine 37.5 mg 37.5 mg PO QAM 01/05/24 01/05/24 capsule,extended release 24 hr Allergies Allergy/AdvReac Type Severity Reaction Status Date / Time cephalexin Allergy Unknown Verified 12/08/23 14:28 Review of Systems Const: Denies: fever(s), chills, body aches or change in appetite ENMT: Denies: throat pain or dental pain Card: Denies: chest pain Resp: Denies: dyspnea GI: Denies: abdominal pain, nausea, vomiting or diarrhea Musc: Denies: neck pain or back pain Skin/Breast: Denies: rash Neuro: Denies: headache(s) Psych: Reports: anxiety PFSH ED PFSH: Family History Father Cancer Social History Smoking and tobacco/nicotine status: current every day tobacco/nicotine user cigarettes Packs smoked per day: 0.24 Alcohol intake: never Substance/Drug Use: never Physical Exam Const: COMMON NORMALS: no acute distress, patient oriented x3 and healthy appearing HENMT: COMMON NORMALS: normocephalic and atraumatic HEAD & SCALP: normocephalic and atraumatic Eye: COMMON NORMALS: conjunctivae normal CONJUNCTIVA: Yes conjunctivae normal Neck/C-Spine: COMMON NORMALS: full ROM and supple Chest: COMMONS NORMALS: normal inspection of the chest Resp: COMMON NORMALS: normal respiratory effort Cardio: COMMON NORMALS: regular rate, regular rhythm and No murmurs present (Cardio) RATE: regular rate RHYTHM: regular rhythm Extremity: COMMON NORMALS: normal to inspection and full ROM Neuro: COMMON NORMALS: patient oriented x3, moves all extremities and no focal motor deficits Psych: COMMON NORMALS: mental status grossly normal, Normal thought process present and cooperative MOOD & AFFECT: Yes anxious THOUGHT PROCESS: Normal thought process present Skin: COMMON NORMALS: no rashes or lesions noted and no wounds GENERAL SKIN EXAM: no rashes or lesions noted Course Vital Signs: Vital signs: Vital Signs Temperature 98.1 F 03/17/24 18:13 Pulse Rate 79 03/17/24 18:13 Respiratory Rate 18 03/17/24 18:13 Blood Pressure 146/78 03/17/24 18:13 Pulse Oximetry 98 03/17/24 18:13 Oxygen Delivery Me thod Room Air 03/17/24 18:13 MDM - Anxiety Medical Decision Making Patient presents here with anxiety is not suicidal or homicidal he is well-appearing here did give him Ativan did give him crisis stabilization information he stable for discharge return if worsening Medical Records I reviewed the patient's medical records. No radiology studies performed this visit Discharge Plan Discharge Patient Disposition: Home Clinical Impression: Acute anxiety Condition: Stable Prescriptions: No Action buspirone 10 mg tablet 15 mg PO BID trazodone 50 mg tablet 50 - 100 mg PO BEDTIME acetaminophen [Tylenol] 325 mg tablet 325 mg PO QID PRN (Reason: Pain) venlafaxine 37.5 mg Capsule,Extended Release 24hr 37.5 mg PO QAM sucralfate 1 gram tablet 1 g PO DAILY pantoprazole 40 mg tablet,delayed release (DR/EC) 40 mg PO DAILY hydroxyzine HCl 25 mg tablet 25 mg PO TID PRN (Reason: Anxiety) Vitamin D2 1,250 mcg (50,000 unit) capsule 1,250 mcg PO Q7D sertraline 50 mg tablet 20 mg PO DAILY Discharge Orders: Discharge ED (Routine); Ordered 03/17/24 Ordered By: Mariano Conway Referrals: Vannessa Jauregui [Primary Care Provider] - Discharge Diet: Advance as tolerated Discharge Activity: Resume usual activity Patient Instructions: Anxiety (ED) Coding Level of Care Code ED Tool Grinding Machine Operator for Amelia Lyman
[2024-03-17] MEDS: LORazepam 1 mg Tablet PO (18:24)
[2024-03-17 18:25] VITALS: BP 144/76; PULSE 73; O2SAT 98
== END 2024-03-17 18:25 | disposition home or self-care (01) ==
PROVIDERS: Emergency Provider Emergency Medicine; PCP Internal Medicine
DX: F41.9 Anxiety disorder, unspecified (principal); F17.210 Nicotine dependence, cigarettes, uncomplicated
CPT/HCPCS: 99283

== ENCOUNTER 2024-03-25 10:44 | Inpatient (IN) | payer MEDICARE, SELFPAY ==
[2024-03-25 10:56] VITALS: BP 117/73; PULSE 76; RESP 17; TEMP 37.2; O2SAT 97
--- NOTE | 2024-03-25 11:09 | ED.C_ITS ---
HPI - Psych 2 General: Chief Complaint: Psychiatric Symptoms Stated Complaint: mhe Time Seen by Provider: 03/25/24 10:54 Source: patient Mode of arrival: ambulatory Limitations: no limitations History of Present Illness: 64-year-old male has a history of severe anxiety has been seen here multiple times recently for his anxiety states his meds are working it is getting worse. He states that he wants to be admitted to the [facility] to get help for his anxiety she denies being SI or HI denies any worse improved factors Related Data Home Medications Medication Instructions Recorded Confirmed acetaminophen 325 mg tablet 325 mg PO QID PRN Pain 01/29/22 01/05/24 (Tylenol) buspirone 10 mg tablet 15 mg PO BID 07/17/23 01/05/24 trazodone 50 mg tablet 50 - 100 mg PO BEDTIME 07/17/23 01/05/24 ergocalciferol (vitamin D2) 1,250 1,250 mcg PO Q7D 01/05/24 01/05/24 mcg (50,000 unit) capsule (Vitamin D2) hydroxyzine HCl 25 mg tablet 25 mg PO TID PRN Anxiety 01/05/24 01/05/24 pantoprazole 40 mg tablet,delayed 40 mg PO DAILY 01/05/24 01/05/24 release sertraline 50 mg tablet 20 mg PO DAILY 01/05/24 01/05/24 sucralfate 1 gram tablet 1 g PO DAILY 01/05/24 01/05/24 venlafaxine 37.5 mg 37.5 mg PO QAM 01/05/24 01/05/24 capsule,extended release 24 hr Allergies Allergy/AdvReac Type Severity Reaction Status Date / Time cephalexin Allergy Unknown Verified 12/08/23 14:28 Review of Systems 2 Const: Denies: fever(s), chills, body aches or change in appetite ENMT: Denies: throat pain or dental pain Card: Denies: chest pain Resp: Denies: dyspnea GI: Denies: abdominal pain, nausea, vomiting or diarrhea Musc: Denies: neck pain or back pain Skin/Breast: Denies: rash Neuro: Denies: headache(s) Psych: Reports: anxiety PFSH ED 2 PFSH: Family History Father Cancer Social History Smoking and tobacco/nicotine status: current every day tobacco/nicotine user cigarettes Packs smoked per day: 0.24 Alcohol intake: never Substance/Drug Use: never Physical Exam 2 Const: COMMON NORMALS: patient oriented x3 and healthy appearing GENERAL APPEARANCE: anxious HENMT: COMMON NORMALS: normocephalic and atraumatic HEAD & SCALP: n ormocephalic and atraumatic Neck/C-Spine: COMMON NORMALS: full ROM and supple Chest: COMMONS NORMALS: normal inspection of the chest Resp: COMMON NORMALS: normal respiratory effort Cardio: COMMON NORMALS: regular rate, regular rhythm and No murmurs present (Cardio) RATE: regular rate RHYTHM: regular rhythm Extremity: COMMON NORMALS: normal to inspection and full ROM Neuro: COMMON NORMALS: patient oriented x3, moves all extremities and no focal motor deficits Psych: COMMON NORMALS: mental status grossly normal, Normal thought process present and cooperative THOUGHT PROCESS: Normal thought process present Skin: COMMON NORMALS: no rashes or lesions noted and no wounds GENERAL SKIN EXAM: no rashes or lesions noted Course 2 Vital Signs: Vital signs: Vital Signs Temperature 99.0 F 03/25/24 10:56 Pulse Rate 76 03/25/24 10:56 Respiratory Rate 17 03/25/24 10:56 Blood Pressure 117/73 03/25/24 10:56 Pulse Oximetry 97 03/25/24 10:56 Oxygen Delivery Me thod Room Air 03/25/24 10:56 [facility] - Psych Medical Decision Making Patient presents with severe anxiety he is voluntarily wanting to be admitted to the [facility] I did speak to psychiatrist patient is medically cleared will admit to psych. Medical Records I reviewed the patient's medical records. Lab Data I reviewed the patient's lab results. 03/25/24 11:04 03/25/24 11:04 Laboratory Results WBC 6.38 10^3/uL (3.29-11.43) 03/25/24 11:04 RBC 4.51 10^6/uL (3.85-5.65) 03/25/24 11:04 Hgb 13.40 g/dL (11.27-16.99) 03/25/24 11:04 Hct 41.3 % (37-53) 03/25/24 11:04 MCV 91.6 fl (82-101) 03/25/24 11:04 MCH 29.7 pg (27-33) 03/25/24 11:04 MCHC 32.4 g/dL (30-55) 03/25/24 11:04 RDW 13.0 % (12.1-15.1) 03/25/24 11:04 Plt Count 200 10^3/cmm (157-399) 03/25/24 11:04 MPV 9.9 fL (7.4-10.4) 03/25/24 11:04 Neut % (Auto) 62.1 % 03/25/24 11:04 Lymph % (Auto) 22.4 % 03/25/24 11:04 Whitman % (Auto) 9.9 % 03/25/24 11:04 Eos % (Auto) 4.4 % 03/25/24 11:04 Baso % (Auto) 0.9 % 03/25/24 11:04 Neut # (Auto) 3.96 10^3/uL (1.8-7.7) 03/25/24 11:04 Lymph # (Auto) 1.4 10^3/uL (0.8-4.8) 03/25/24 11:04 Whitman # (Auto) 0.6 10^3/uL (0.2-0.9) 03/25/24 11:04 Eos # (Auto) 0.3 10^3/uL (0.0-0.8) 03/25/24 11:04 Baso # (Auto) 0.1 10^3/uL (0.0-0.1) 03/25/24 11:04 Nucleated RBC % (auto) 0 % 03/25/24 11:04 Nucleated RBCs # 0.0 /100WBC 03/25/24 11:04 Sodium 143 mmol/L (136-145) 03/25/24 11:04 Potassium 3.8 mmol/L (3.5-5.1) 03/25/24 11:04 Chloride 107 mmol/L (98-107) 03/25/24 11:04 Carbon Dioxide 29 mmol/L (22-29) 03/25/24 11:04 Anion Gap 10.8 (5-19) 03/25/24 11:04 BUN 15 mg/dL (8-23) 03/25/24 11:04 Creatinine 1.1 mg/dL (0.7-1.2) 03/25/24 11:04 GFR Calculation 67.0 mL/min (90-130) L 03/25/24 11:04 Glucose 105 mg/dL (65-115) 03/25/24 11:04 Calculated Osmolality 297 mOsm/kg (285-295) H 03/25/24 11:04 Calcium 9.0 mg/dL (8.5-10.5) 03/25/24 11:04 Total Bilirubin 0.3 mg/dL (0.15-1.2) 03/25/24 11:04 AST 19 U/L (0-40) 03/25/24 11:04 ALT 25 U/L (0-41) 03/25/24 11:04 Alkaline Phosphatase 87 U/L (40-130) 03/25/24 11:04 Total Protein 6.8 g/dL (6.6-8.7) 03/25/24 11:04 Albumin 4.2 g/dL (3.5-5.2) 03/25/24 11:04 Globulin 2.6 g/dL (1.3-4.6) 03/25/24 11:04 Salicylates < 0.3 mg/dL (3-10) L 03/25/24 11:04 Acetaminophen < 5.0 ug/mL (10-30) L 03/25/24 11:04 Ethyl Alcohol < 10 mg/dL (0-10) 03/25/24 11:04 No radiology studies performed this visit Discharge Plan Discharge Patient Disposition: Admitted As Inpatient Clinical Impression: Anxiety Condition: Stable Prescriptions: No Action buspirone 10 mg tablet 15 mg PO BID trazodone 50 mg tablet 50 - 100 mg PO BEDTIME acetaminophen [Tylenol] 325 mg tablet 325 mg PO QID PRN (Reason: Pain) venlafaxine 37.5 mg Capsule,Extended Release 24hr 37.5 mg PO QAM sucralfate 1 gram tablet 1 g PO DAILY pantoprazole 40 mg tablet,delayed release (DR/EC) 40 mg PO DAILY hydroxyzine HCl 25 mg tablet 25 mg PO TID PRN (Reason: Anxiety) Vitamin D2 1,250 mcg (50,000 unit) capsule 1,250 mcg PO Q7D sertraline 50 mg tablet 20 mg PO DAILY Referrals: Vannessa Jauregui [Primary Care Provider] - Coding Level of Care Code ED Bridge Maintainer for Amelia Lyman
[2024-03-25 11:16] LABS: Basophils # 0.1 10^3/uL (0.0-0.1); Basophils % 0.9 %; Eosinophils # 0.3 10^3/uL (0.0-0.8); Eosinophils % 4.4 %; Hematocrit 41.3 % (37-53); Lymphocytes # 1.4 10^3/uL (0.8-4.8); Lymphocytes % 22.4 %; Mean Corpuscular HGB Conc 32.4 g/dL (30-55); Mean Corpuscular Hemoglobin 29.7 pg (27-33); Mean Corpuscular Volume 91.6 fl (82-101); Mean Platelet Volume 9.9 fL (7.4-10.4); Monocytes # 0.6 10^3/uL (0.2-0.9); Monocytes % 9.9 %; Neutrophils # 3.96 10^3/uL (1.8-7.7); Neutrophils % 62.1 %; Nucleated Red Blood Cells % 0 %; Platelet Count 200 10^3/cmm (157-399); Red Blood Count 4.51 10^6/uL (3.85-5.65); White Blood Count 6.38 10^3/uL (3.29-11.43)
[2024-03-25] MEDS: LORazepam 2 mg/mL INJ 1 mL 1 MG IM (11:16)
[2024-03-25 11:36] LABS: Alanine Aminotransferase 25 U/L (0-41); Albumin Level 4.2 g/dL (3.5-5.2); Alkaline Phosphatase 87 U/L (40-130); Anion Gap 10.8 (5-19); Aspartate Amino Transferase 19 U/L (0-40); Blood Urea Nitrogen 15 mg/dL (8-23); Carbon Dioxide 29 mmol/L (22-29); Chloride 107 mmol/L (98-107); Creatinine Clr Calc Pharmacy 78.2916; Globulin 2.6 g/dL (1.3-4.6); Glucose 105 mg/dL (65-115); Osmolality Calculated 297 mOsm/kg (285-295); Potassium 3.8 mmol/L (3.5-5.1); Sodium 143 mmol/L (136-145); Total Bilirubin 0.3 mg/dL (0.15-1.2); Total Protein 6.8 g/dL (6.6-8.7)
[2024-03-25 11:40] LABS: Acetaminophen < 5.0 ug/mL (10-30); Alcohol Level < 10 mg/dL (0-10); Salicylate < 0.3 mg/dL (3-10)
--- NOTE | 2024-03-25 12:21 | PC.PHAR ---
Addendum entered by Taylor Lawson 03/25/24 12:24: pt has rx for vitamin d 50,000 units [id number] bottle Original Note: Pt states took some of his medications yesterday-unsure of what else, but did take Sertraline 100mg even though he should have discontinued it. Pt has several rx bottles, some of which, are the same medication with different strength. Pt really is unsure of what he should be taking. Verified medications via rx bottles and pharmacy fill dates. Left all meds listed on pt chart.
[2024-03-25 13:38] VITALS: BP 117/63; PULSE 78; O2SAT 97
[2024-03-25 14:17] VITALS: BP 117/74; PULSE 72; RESP 18; TEMP 36.8; O2SAT 98
--- NOTE | 2024-03-25 14:52 | PC.NURSE ---
Patient arrived to the [facility] alert and oriented x 4. Patient very hard of hearing and after repeating a few questions multiple times, patient appeared to still misunderstand them. However, he was able to participate in the majority of the assessment. Patient stated he came to the hospital because he was having increased anxiety and although he has had recent medication changes he believes they are not helping. He does endorse a waxing and waning appetite due to nervousness/anxiety, but denies any weight loss. Patient denies avh and si/hi. He also denies any history of emotion, physical, or sexual abuse as well as any prior suicide attempts. He does say he was hospitalized 2 years ago in [place], [place] for similar issues. Denies any prior or current use of alcohol and/or drugs. Patient cooperative and does appear somewhat anxious. He is currently wearing a small lower back brace due to previous back injuries.
--- NOTE | 2024-03-25 14:59 | PC.NURSE ---
This RN talked to Dr. Rudolph to see if he wanted to allow the patient to keep his lower back brace. Dr. Rudolph stated the patient could continue to wear it. Placed orders.
--- NOTE | 2024-03-25 17:21 | PC.NURSE ---
GENERAL ENGINEERING TEACHER AND THIS RN WERE WALKING DOWN [facility] TO SEE IF A ROOM WAS CLEAN WHEN PT WAS OBSERVED TO BE SITTING ON ANOTHER PATIENT BED WHO WAS FEMALE. PT WAS IMMEDIATELY REDIRECTED TO COME OUT OF THE ROOM AND EDUCATED NOT TO GO INTO ANY PATIENT ROOM. PT STATED YEAH YEAH YEAH, I WAS JUST STAYING IN THERE TO SEE. RN ATTEMPTED TO EXPLAIN THAT HE IS NOT ALLOWED IN PATIENTS ROOMS AND IF HE WANTS TO VISIT HE CAN GO TO THE DAY ROOM. PT MADE NONSENSICAL STATEMENTS THAT COULD NOT BE UNDERSTOOD. PT IS ABLE TO BE REDIRECTED BUT TAKES FREQUENT REMINDERS TO STAY OUT OF OTHERS ROOMS. PT IS CONFUSED WITH DISORGANIZED THOUGHT PROCESS WITH SHORT TERM MEMORY ISSUES. GENERAL ENGINEERING TEACHER, NPU LIFESTYLE CONSULTANT, AND DR. LONG NOTIFIED OF THE ABOVE. NO NEW ORDERS WERE RECEIVED. A LARGE SIGN WAS PLACED NEAR PTS DOOR THAT STATED THE ROOM TO BE HIS. SUPPORT VOICED.
[2024-03-25 20:02] VITALS: BP 88/52; PULSE 75; RESP 17; TEMP 36.7; O2SAT 95
[2024-03-25 20:44] VITALS: BP 84/59
[2024-03-25] MEDS: BuSPIRONE 10 mg Tablet 20 MG PO (21:07)
[2024-03-25] MEDS: prazosin 1 mg Capsule 4 MG PO (21:07)
[2024-03-26 04:30] VITALS: BP 90/56; PULSE 77; RESP 19; TEMP 36.6; O2SAT 96
[2024-03-26] MEDS: hyDROXYzine 25 mg Capsule 50 MG PO ×2 (05:56→21:34)
[2024-03-26] MEDS: OLANZapine 5 mg ODT PO (06:23)
[2024-03-26 06:26] LABS: Amphetamines Screen Urine Negative (Negative); Barbiturates Screen Urine Negative (Negative); Benzodiazepines Screen Urine Positive (Negative); Cocaine Screen Urine Negative (Negative); Opiate Screen Urine Negative (Negative); PCP Screen Urine Positive (Negative); THC Screen Urine Negative (Negative)
--- NOTE | 2024-03-26 06:34 | PC.NURSE ---
Patient C/O acute anxiety. Prn Vistaril 50 mg PO given with poor response. PRN Zyprexa 5 mg SL given.
[2024-03-26] MEDS: pantoprazole DR 40 mg Tablet PO (08:19)
[2024-03-26] MEDS: venlafaxine ER (24HR) 150 mg Capsule PO (08:19)
[2024-03-26] MEDS: sucralfate 1 gm Tablet PO (08:19)
[2024-03-26] MEDS: BuSPIRONE 10 mg Tablet 20 MG PO ×2 (08:23→21:33)
[2024-03-26] MEDS: IMIPRAMINE HCL 50 MG 50 EACH PO ×2 (08:23→21:34)
[2024-03-26] MEDS: ergocalciferol (vitamin D2) 50,000 Unit Capsule 50000 UNIT PO (08:23)
[2024-03-26] MEDS: flu vacc pf 24-25 (6 mos+) SYRINGE 45 MCG IM (08:25)
--- NOTE | 2024-03-26 09:10 | PC.NURSE ---
Denies avh and si/hi. He does endorse poor sleep last night and pain all over at a 6/10. He has been exhibiting very anxious behavior this morning, stammering, tapping his feet, talking with his hands very quickly, and making statements about not feeling any better. When asked if anything specific had been occupying his mind to keep him up last night he replied, I don't really know. I've just had a pretty stressful life. My anxiety, it just takes my legs, and wiggled his legs as if he meant that his anxiety made him feel weak. This RN advised him to let staff know if his anxiety did not lessen or if got worse. Patient verbally agreed.
--- NOTE | 2024-03-26 12:19 | PC.NURSE ---
Patient approached nurses' station and asked if he had any medications due at this time. This RN told him he did not have anything scheduled at this time. Patient appeared to become agitated and named off medications he stated he knew he was supposed to be taking twice daily. This RN explained to him that they were scheduled to be taken twice daily, but that he had already taken his morning dose and the next dose wouldn't be until this evening. Patient rolled his eyes, appeared to be confused and stated, the doctor prescribed them to me twice a day. This RN reiterated that he would still be getting them twice daily, but that his next dose was not due until later today. He continued to appear agitated and walked to the dayroom.
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
[2024-03-26 14:00] VITALS: BP 116/71; PULSE 71; RESP 16; TEMP 36.6; O2SAT 97
[2024-03-26 20:59] VITALS: BP 131/83; PULSE 72; RESP 18; TEMP 36.6; O2SAT 100
[2024-03-26] MEDS: prazosin 1 mg Capsule 4 MG PO (21:32)
[2024-03-27 06:00] VITALS: BP 99/61; PULSE 81; RESP 17; TEMP 36.7; O2SAT 97
[2024-03-27] MEDS: pantoprazole DR 40 mg Tablet PO (08:37)
[2024-03-27] MEDS: BuSPIRONE 10 mg Tablet 20 MG PO ×3 (08:37→20:18)
[2024-03-27] MEDS: OLANZapine 5 mg ODT PO (08:37)
[2024-03-27] MEDS: sucralfate 1 gm Tablet PO (08:37)
[2024-03-27] MEDS: venlafaxine ER (24HR) 150 mg Capsule PO (08:37)
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
[2024-03-27] MEDS: IMIPRAMINE HCL 50 MG 50 EACH PO ×2 (09:42→20:17)
[2024-03-27 14:00] VITALS: BP 104/51; PULSE 78; RESP 16; TEMP 36.7; O2SAT 97
[2024-03-27] MEDS: prazosin 1 mg Capsule 4 MG PO (20:18)
[2024-03-27 21:06] VITALS: BP 112/72; PULSE 71; RESP 18; TEMP 36.5; O2SAT 100
[2024-03-28 06:00] VITALS: BP 107/72; PULSE 82; RESP 17; TEMP 36.7; O2SAT 96
[2024-03-28] MEDS: pantoprazole DR 40 mg Tablet PO (09:19)
[2024-03-28] MEDS: BuSPIRONE 10 mg Tablet 20 MG PO ×3 (09:19→20:44)
[2024-03-28] MEDS: IMIPRAMINE HCL 50 MG 50 EACH PO ×2 (09:19→20:44)
[2024-03-28] MEDS: venlafaxine ER (24HR) 150 mg Capsule PO (09:19)
[2024-03-28] MEDS: sucralfate 1 gm Tablet PO (09:20)
[2024-03-28 14:00] VITALS: BP 109/72; PULSE 91; RESP 16; TEMP 37; O2SAT 97
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
[2024-03-28 20:12] VITALS: BP 126/83; PULSE 83; RESP 18; TEMP 37.3; O2SAT 97
[2024-03-28] MEDS: prazosin 1 mg Capsule 4 MG PO (20:44)
[2024-03-29] MEDS: OLANZapine 5 mg ODT PO ×2 (03:59→21:58)
[2024-03-29 06:00] VITALS: BP 121/82; PULSE 84; RESP 18; TEMP 36.6; O2SAT 98
[2024-03-29] MEDS: sucralfate 1 gm Tablet PO (08:41)
[2024-03-29] MEDS: IMIPRAMINE HCL 50 MG 50 EACH PO ×2 (08:41→19:54)
[2024-03-29] MEDS: venlafaxine ER (24HR) 150 mg Capsule PO (08:41)
[2024-03-29] MEDS: pantoprazole DR 40 mg Tablet PO (08:41)
[2024-03-29] MEDS: BuSPIRONE 10 mg Tablet 20 MG PO ×3 (08:41→19:54)
[2024-03-29 14:00] VITALS: BP 113/77; PULSE 91; RESP 18; TEMP 36.9; O2SAT 95
[2024-03-29] MEDS: ergocalciferol (vitamin D2) 50,000 Unit Capsule 50000 UNIT PO (14:15)
[2024-03-29] MEDS: acetaminophen 325 mg Tablet 650 MG PO (17:33)
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
[2024-03-29 19:36] VITALS: BP 100/61; PULSE 90; RESP 18; TEMP 36.9; O2SAT 98
[2024-03-29] MEDS: prazosin 1 mg Capsule 4 MG PO (19:54)
[2024-03-30 06:00] VITALS: BP 98/62; PULSE 92; RESP 16; TEMP 37.6; O2SAT 96
[2024-03-30] MEDS: venlafaxine ER (24HR) 150 mg Capsule PO (08:39)
[2024-03-30] MEDS: pantoprazole DR 40 mg Tablet PO (08:39)
[2024-03-30] MEDS: IMIPRAMINE HCL 50 MG 50 EACH PO ×2 (08:39→20:24)
[2024-03-30] MEDS: BuSPIRONE 10 mg Tablet 20 MG PO ×3 (08:39→20:24)
[2024-03-30] MEDS: sucralfate 1 gm Tablet PO (08:39)
[2024-03-30 14:00] VITALS: BP 114/76; PULSE 87; RESP 16; TEMP 36.6; O2SAT 98
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
[2024-03-30 19:22] VITALS: BP 119/74; PULSE 88; RESP 18; TEMP 36.5; O2SAT 99
[2024-03-30] MEDS: prazosin 1 mg Capsule 4 MG PO (20:23)
[2024-03-30] MEDS: quetiapine 25 mg Tablet 50 MG PO (20:24)
[2024-03-31 06:00] VITALS: BP 116/72; PULSE 88; RESP 18; TEMP 36.8; O2SAT 97
[2024-03-31] MEDS: BuSPIRONE 10 mg Tablet 20 MG PO ×3 (09:21→20:43)
[2024-03-31] MEDS: sucralfate 1 gm Tablet PO (09:22)
[2024-03-31] MEDS: venlafaxine ER (24HR) 150 mg Capsule PO (09:22)
[2024-03-31] MEDS: pantoprazole DR 40 mg Tablet PO (09:22)
[2024-03-31] MEDS: IMIPRAMINE HCL 50 MG 50 EACH PO ×2 (09:22→21:36)
[2024-03-31 14:00] VITALS: BP 109/71; PULSE 78; RESP 16; TEMP 36.6; O2SAT 100
[2024-03-31] MEDS: ergocalciferol (vitamin D2) 50,000 Unit Capsule 50000 UNIT PO (14:38)
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
[2024-03-31] MEDS: OLANZapine 5 mg ODT PO (18:21)
[2024-03-31] MEDS: hyDROXYzine 25 mg Capsule 50 MG PO (19:27)
[2024-03-31 19:45] VITALS: BP 123/73; PULSE 89; RESP 20; TEMP 36.7; O2SAT 100
[2024-03-31] MEDS: quetiapine 25 mg Tablet 50 MG PO (20:43)
[2024-03-31] MEDS: prazosin 1 mg Capsule 4 MG PO (20:43)
[2024-03-31] MEDS: trazodone 50 mg Tablet PO (20:43)
[2024-04-01 06:00] VITALS: BP 133/81; PULSE 98; RESP 20; TEMP 36.8; O2SAT 96
[2024-04-01] MEDS: hyDROXYzine 25 mg Capsule 50 MG PO (07:24)
[2024-04-01] MEDS: pantoprazole DR 40 mg Tablet PO (09:41)
[2024-04-01] MEDS: BuSPIRONE 10 mg Tablet 20 MG PO ×3 (09:41→21:05)
[2024-04-01] MEDS: sucralfate 1 gm Tablet PO (09:41)
[2024-04-01] MEDS: IMIPRAMINE HCL 50 MG 50 EACH PO ×2 (09:42→21:05)
[2024-04-01] MEDS: venlafaxine ER (24HR) 75 mg Capsule 225 MG PO (09:43)
[2024-04-01] MEDS: OLANZapine 5 mg ODT PO ×2 (10:56→16:43)
--- NOTE | 2024-04-01 10:58 | PC.NURSE ---
VISTARIL 50 MG DISCONTINUED DUE TO CONFUSION WHEN HE TAKES IT. DR. LONG GAVE ORDER TO STOP.
[2024-04-01 14:00] VITALS: PULSE 117; RESP 18; TEMP 37.1; O2SAT 99
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
[2024-04-01] MEDS: acetaminophen 325 mg Tablet 650 MG PO (18:41)
[2024-04-01 20:16] VITALS: BP 113/71; PULSE 85; RESP 18; TEMP 36.9; O2SAT 97
[2024-04-01] MEDS: trazodone 50 mg Tablet PO (21:04)
[2024-04-01] MEDS: prazosin 1 mg Capsule 4 MG PO (21:05)
[2024-04-01] MEDS: quetiapine 25 mg Tablet 50 MG PO (21:07)
[2024-04-02 06:00] VITALS: BP 134/72; PULSE 87; RESP 18; TEMP 36.9; O2SAT 96
[2024-04-02] MEDS: venlafaxine ER (24HR) 75 mg Capsule 225 MG PO (09:03)
[2024-04-02] MEDS: BuSPIRONE 10 mg Tablet 20 MG PO ×2 (09:03→14:02)
[2024-04-02] MEDS: pantoprazole DR 40 mg Tablet PO (09:03)
[2024-04-02] MEDS: sucralfate 1 gm Tablet PO (09:03)
[2024-04-02] MEDS: IMIPRAMINE HCL 50 MG 50 EACH PO (09:04)
[2024-04-02 14:00] VITALS: BP 144/73; PULSE 78; RESP 16; TEMP 36.8; O2SAT 99
[2024-04-02] MEDS: ergocalciferol (vitamin D2) 50,000 Unit Capsule 50000 UNIT PO (14:02)
[2024-04-02] MEDS: OLANZapine 5 mg ODT PO (14:02)
[2024-04-02] MEDS: hyDROXYzine 25 mg Capsule 50 MG PO (14:13)
--- NOTE | 2024-04-02 14:17 | PC.NURSE ---
pt states he still not sleeping well at night.
--- NOTE | 2024-04-02 14:30 | DCPLANNER ---
Imm was printed and rights explained to pt and copy placed in pts file.
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
[2024-04-02 15:44] VITALS: BP 144/73; PULSE 78; RESP 16; TEMP 36.8; O2SAT 99
== END 2024-04-02 16:41 | disposition home or self-care (01) | DRG 882 ==
LOC: ER 12:12 → NP 12:13
PROVIDERS: Admitting Provider Psychiatry & Neurology Psychiatry; Emergency Provider Emergency Medicine; PCP Internal Medicine; Visit Provider Psychiatry & Neurology Psychiatry
DX: F43.10 Post-traumatic stress disorder, unspecified (principal); F06.4 Anxiety disorder due to known physiological condition; F43.0 Acute stress reaction; H91.90 Unspecified hearing loss, unspecified ear; Z63.4 Disappearance and death of family member; V49.9XXS Car occupant (driver) (passenger) injured in unspecified traffic accident, sequela
CPT/HCPCS: 80053; 80306; 80307; 85025; 90471; 90686; 96372; 97150; 97165; 99285; J2060

== ENCOUNTER 2024-04-08 11:42 | Emergency (ER) | payer MEDICARE, SELFPAY ==
[2024-04-08 11:45] VITALS: BP 125/73; PULSE 76; RESP 17; TEMP 36.6; O2SAT 98; BMI 24.3
--- NOTE | 2024-04-08 11:50 | XR_ITS ---
WS: [id number] Portable AP upright chest, 04/08/2024 Clinical Data: cp Comparison: Portable chest, 01/05/2024 Findings: No nodules, masses or effusions are seen. The heart is normal. The pulmonary vascularity is not increased. No pneumonia or pneumothorax is seen. The aortic arch and descending thoracic aorta s how calcification and tortuosity. There are multiple small plates with screws repairing old left rib fractures from the third through eighth ribs. XR/XR chest 1V portable [id number] Impression: Atherosclerosis
--- NOTE | 2024-04-08 11:52 | W.ED.CHESTPA ---
HPI - Chest Pain General: Chief Complaint: Anxiety Stated Complaint: med evaluation Time Seen by Provider: 04/08/24 11:46 Source: patient and EMS Mode of arrival: EMS Limitations: no limitations History of Present Illness: 64-year-old male who has been seen here multiple times for anxiety admitted him last week he had been discharged on Friday from the [facility] for his anxiety states today started feel anxious again having sharp pains in his left chest he states from the anxiety. He denies any fevers denies any cough he does appear anxious. Denies SI or HI. Associated symptoms: Deny abdominal pain, dyspnea, fever(s), nausea or vomiting Related Data Home Medications Medication Instructions Recorded Confirmed acetaminophen 325 mg tablet 325 mg PO QID PRN Pain 01/29/22 03/25/24 (Tylenol) ergocalciferol (vitamin D2) 1,250 1,250 mcg PO Q7D 01/05/24 03/25/24 mcg (50,000 unit) capsule (Vitamin D2) pantoprazole 40 mg tablet,delayed 40 mg PO DAILY 01/05/24 03/25/24 release sucralfate 1 gram tablet 1 g PO DAILY 01/05/24 03/25/24 hydroxyzine HCl 50 mg tablet 50 mg PO Q6H PRN Anxiety 03/25/24 03/25/24 imipramine HCl 50 mg tablet 50 mg PO BID 03/25/24 03/25/24 prazosin 2 mg capsule 4 mg PO DAILY 03/25/24 03/25/24 Previous Rx's Medication Instructions Recorded buspirone 10 mg tablet 20 mg (2 x 10 mg) PO TID 30 days 04/02/24 #180 tabs quetiapine 25 mg tablet 50 mg (2 x 25 mg) PO BEDTIME 30 04/02/24 days #60 tabs venlafaxine 150 mg 150 mg PO QAM 30 days #30 caps 04/02/24 capsule,extended release 24 hr venlafaxine 75 mg capsule,extended 75 mg PO QAM 30 days #30 caps 04/02/24 release 24 hr Allergies Allergy/AdvReac Type Severity Reaction Status Date / Time cephalexin Allergy Unknown Verified 12/08/23 14:28 Review of Systems Const: Denies: fever(s), chills, body aches or change in appetite ENMT: Denies: throat pain or dental pain Card: Reports: chest pain Resp: Denies: dyspnea GI: Denies: abdominal pain, nausea, vomiting or diarrhea Musc: Denies: neck pain or back pain Skin/Breast: Denies: rash Neuro: Denies: headache(s) Psych: Reports: anxiety [facility] ED PFSH: Medical History History of flail chest Family History Father Cancer Social History Smoking and tobacco/nicotine status: current every day tobacco/nicotine user cigarettes Packs smoked per day: 0.24 Alcohol intake: never Substance/Drug Use: never Physical Exam Const: COMMON NORMALS: patient oriented x3 GENERAL APPEARANCE: anxious HENMT: COMMON NORMALS: normocephalic and atraumatic HEAD & SCALP: normocephalic and atraumatic Eye: COMMON NORMALS: conjunctivae normal CONJUNCTIVA: Yes conjunctivae normal Neck/C-Spine: COMMON NORMALS: full ROM and supple Chest: COMMONS NORMALS: normal inspection of the chest Resp: COMMON NORMALS: normal respiratory effort, No retractions, No use of accessory muscles and clear to auscultation bilaterally AUSCULTATION: clear to auscultation bilaterally Cardio: COMMON NORMALS: regular rate, regular rhythm and No murmurs present (Cardio) RATE: regular rate RHYTHM: regular rhythm Extremity: COMMON NORMALS: normal to inspection and full ROM Neuro: COMMON NORMALS: patient oriented x3, moves all extremities and no focal motor deficits Psych: COMMON NORMALS: mental status grossly normal, Normal thought process present and cooperative THOUGHT PROCESS: Normal thought process present Skin: COMMON NORMALS: no rashes or lesions noted and no wounds GENERAL SKIN EXAM: no rashes or lesions noted Course Vital Signs: Vital signs: Vital Signs Temperature 97.9 F 04/08/24 11:45 Pulse Rate 88 04/08/24 13:15 Respiratory Rate 16 04/08/24 13:14 Blood Pressure 121/76 04/08/24 13:15 Pulse Oximetry 99 04/08/24 13:15 Oxygen Delivery Me thod Room Air 04/08/24 13:14 MDM - Chest Pain Medical Decision Making Patient presents here with general anxiety he had complained of some chest pain is likely due to anxiety his troponin here is negative he has had no chest pain feels much improved currently stable for discharge follow-up with PCP return if worsening. Medical Records I reviewed the patient's medical records. Lab Data I reviewed the patient's lab results. 04/08/24 12:17 04/08/24 12:17 Radiology Impressions Chest X-Ray 04/08/24 11:50 Impression: Atherosclerosis Laboratory Results WBC 6.82 10^3/uL (3.29-11.43) 04/08/24 12:17 RBC 4.71 10^6/uL (3.85-5.65) 04/08/24 12:17 Hgb 13.70 g/dL (11.27-16.99) 04/08/24 12:17 Hct 42.2 % (37-53) 04/08/24 12:17 MCV 89.6 fl (82-101) 04/08/24 12:17 MCH 29.1 pg (27-33) 04/08/24 12:17 MCHC 32.5 g/dL (30-55) 04/08/24 12:17 RDW 12.7 % (12.1-15.1) 04/08/24 12:17 Plt Count 291 10^3/cmm (157-399) 04/08/24 12:17 MPV 9.0 fL (7.4-10.4) 04/08/24 12:17 Neut % (Auto) 68.0 % 04/08/24 12:17 Lymph % (Auto) 19.8 % 04/08/24 12:17 [place] % (Auto) 7.9 % 04/08/24 12:17 Eos % (Auto) 2.1 % 04/08/24 12:17 Baso % (Auto) 0.7 % 04/08/24 12:17 Neut # (Auto) 4.64 10^3/uL (1.8-7.7) 04/08/24 12:17 Lymph # (Auto) 1.4 10^3/uL (0.8-4.8) 04/08/24 12:17 [place] # (Auto) 0.5 10^3/uL (0.2-0.9) 04/08/24 12:17 Eos # (Auto) 0.1 10^3/uL (0.0-0.8) 04/08/24 12:17 Baso # (Auto) 0.1 10^3/uL (0.0-0.1) 04/08/24 12:17 Nucleated RBC % (auto) 0 % 04/08/24 12:17 Nucleated RBCs # 0.0 /100WBC 04/08/24 12:17 Sodium 142 mmol/L (136-145) 04/08/24 12:17 Potassium 4.2 mmol/L (3.5-5.1) 04/08/24 12:17 Chloride 103 mmol/L (98-107) 04/08/24 12:17 Carbon Dioxide 29 mmol/L (22-29) 04/08/24 12:17 Anion Gap 14.2 (5-19) 04/08/24 12:17 BUN 13 mg/dL (8-23) 04/08/24 12:17 Creatinine 0.9 mg/dL (0.7-1.2) 04/08/24 12:17 GFR Calculation 84.4 mL/min (90-130) L 04/08/24 12:17 Glucose 72 mg/dL (65-115) 04/08/24 12:17 Calculated Osmolality 293 mOsm/kg (285-295) 04/08/24 12:17 Calcium 8.9 mg/dL (8.5-10.5) 04/08/24 12:17 Total Bilirubin 0.3 mg/dL (0.15-1.2) 04/08/24 12:17 AST 18 U/L (0-40) 04/08/24 12:17 ALT 29 U/L (0-41) 04/08/24 12:17 Alkaline Phosphatase 89 U/L (40-130) 04/08/24 12:17 Troponin T Baseline 16 ng/L (0-15) H 04/08/24 12:17 Total Protein 6.7 g/dL (6.6-8.7) 04/08/24 12:17 Albumin 4.4 g/dL (3.5-5.2) 04/08/24 12:17 Globulin 2.3 g/dL (1.3-4.6) 04/08/24 12:17 All radiology interpretation(s) finalized by discharge EKG Data EKG 1: I personally reviewed and interpreted this EKG as follows: EKG interpretation date: 04/08/24 EKG interpretation time: 12:04 Interpretation: nsr hr [address] or t wave abnormalities qrs 111 qtc 390 Discharge Plan Discharge Patient Disposition: Home Clinical Impression: Anxiety Condition: Stable Prescriptions: No Action acetaminophen [Tylenol] 325 mg tablet 325 mg PO QID PRN (Reason: Pain) sucralfate 1 gram tablet 1 g PO DAILY pantoprazole 40 mg tablet,delayed release (DR/EC) 40 mg PO DAILY ergocalciferol (vitamin D2) [Vitamin D2] 1,250 mcg (50,000 unit) capsule 1,250 mcg PO Q7D imipramine HCl 50 mg tablet 50 mg PO BID hydroxyzine HCl 50 mg tablet 50 mg PO Q6H PRN (Reason: Anxiety) prazosin 2 mg capsule 4 mg PO DAILY quetiapine 25 mg Tablet 50 mg PO BEDTIME 30 Days Qty: 60 1RF buspirone 10 mg Tablet 20 mg PO TID 30 Days Qty: 180 1RF venlafaxine 75 mg capsule,extended release 24hr 75 mg PO QAM 30 Days Qty: 30 1RF venlafaxine 150 mg capsule,extended release 24hr 150 mg PO QAM 30 Days Qty: 30 1RF Discharge Orders: Discharge ED (Routine); Ordered 04/08/24 Ordered By: Mariano Conway Referrals: Vannessa Jauregui [Primary Care Provider] - 4-7 days Discharge Diet: Advance as tolerated Discharge Activity: Resume usual activity Patient Instructions: Anxiety (ED) Coding Level of Care Code ED Deicer Finisher for Amelia Lyman
--- NOTE | 2024-04-08 12:04 | ECG_ITS ---
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: : 1960 Requested By: Mariano Conway Order Number: [id number] Reading MD: JOSE MAYORGA Measurements Intervals [place] Rate: 66 P: 60 [place]: 184 QRS: 5 QRSD: 111 T: 32 QT: 376 QTc: 396 Interpretive Statements SINUS RHYTHM MODERATE INTRAVENTRICULAR CONDUCTION DELAY [110+ ms QRS DURATION] NONSPECIFIC ST & T-WAVE ABNORMALITY Compared to ECG 01/05/2024 13:31:47 Sinus bradycardia no longer present T-wave abnormality still present Electronically Signed On 04-10-2024 18:12:43 CDT by JOSE MAYORGA [email or web address]
[2024-04-08 12:24] LABS: Basophils # 0.1 10^3/uL (0.0-0.1); Basophils % 0.7 %; Eosinophils # 0.1 10^3/uL (0.0-0.8); Eosinophils % 2.1 %; Hematocrit 42.2 % (37-53); Lymphocytes # 1.4 10^3/uL (0.8-4.8); Lymphocytes % 19.8 %; Mean Corpuscular HGB Conc 32.5 g/dL (30-55); Mean Corpuscular Hemoglobin 29.1 pg (27-33); Mean Corpuscular Volume 89.6 fl (82-101); Monocytes # 0.5 10^3/uL (0.2-0.9); Monocytes % 7.9 %; Neutrophils # 4.64 10^3/uL (1.8-7.7); Nucleated Red Blood Cells % 0 %; Platelet Count 291 10^3/cmm (157-399); Red Blood Count 4.71 10^6/uL (3.85-5.65); Red Cell Distribution Width 12.7 % (12.1-15.1); White Blood Count 6.82 10^3/uL (3.29-11.43)
[2024-04-08] MEDS: LORazepam 1 mg Tablet PO ×2 (12:31→13:13)
[2024-04-08 12:43] LABS: Troponin(5th) Baseline 16 ng/L (0-15)
[2024-04-08 12:49] LABS: Alanine Aminotransferase 29 U/L (0-41); Albumin Level 4.4 g/dL (3.5-5.2); Alkaline Phosphatase 89 U/L (40-130); Anion Gap 14.2 (5-19); Aspartate Amino Transferase 18 U/L (0-40); Blood Urea Nitrogen 13 mg/dL (8-23); Calcium 8.9 mg/dL (8.5-10.5); Carbon Dioxide 29 mmol/L (22-29); Chloride 103 mmol/L (98-107); Creatinine Clr Calc Pharmacy 95.6898; Globulin 2.3 g/dL (1.3-4.6); Glomerular Filtration Rate 84.4 mL/min (90-130); Glucose 72 mg/dL (65-115); Osmolality Calculated 293 mOsm/kg (285-295); Potassium 4.2 mmol/L (3.5-5.1); Sodium 142 mmol/L (136-145); Total Bilirubin 0.3 mg/dL (0.15-1.2); Total Protein 6.7 g/dL (6.6-8.7)
[2024-04-08 13:14] VITALS: BP 121/71; RESP 16; O2SAT 98
[2024-04-08 13:15] VITALS: BP 121/76; PULSE 88; O2SAT 99
== END 2024-04-08 13:15 | disposition home or self-care (01) ==
PROVIDERS: Emergency Provider Emergency Medicine; PCP Internal Medicine
DX: F41.9 Anxiety disorder, unspecified (principal); F17.210 Nicotine dependence, cigarettes, uncomplicated
CPT/HCPCS: 36415; 71045; 80053; 84484; 85025; 93005; 99285

== ENCOUNTER 2024-04-11 11:11 | Emergency (ER) | payer MEDICARE, SELFPAY ==
[2024-04-11] VITALS (7 sets, daily range): BP systolic 111–136; BP diastolic 73–81; PULSE 65–75; RESP 17–22; TEMP 36.6; O2SAT 95–99; BMI 24.3
--- NOTE | 2024-04-11 11:37 | XRR_ITS ---
PROCEDURE INFORMATION: Exam: XR Chest Exam date and time: 04/11/2024 12:01 PM Age: 64 years old Clinical indication: Pain; Chest pressure; Prior surgery; Surgery date: 6+ months; Surgery type: Rib fixation; Patient HX: Anxiety; Hyperventilation TECHNIQUE: Imaging protocol: Radiologic exam of the chest. Views: 1 view. COMPARISON: CR XR chest 1V portable [id number] 04/08/2024 11:59 AM FINDINGS: Lungs: Unremarkable. No consolidation. Pleural spaces: Unremarkable. No pleural effusion. No pneumothorax. Heart/Mediastinum: Unremarkable. No cardiomegaly. Bones/joints: Multiple left rib fractures are seen status post ORIF XR/XR chest 1V portable [id number] IMPRESSION: 1. No acute findings. 2. Multiple left rib fractures status post ORIF.
--- NOTE | 2024-04-11 11:37 | ECG_ITS ---
Arach[facility] Test Date: 2024-04-11 Pat Name: Juan Jose Colvin Department: Room: Gender: Male Branch Specialist: : 1960 Requested By: Mariano Conway Order Number: [id number] Reading MD: JOSE MAYORGA Measurements Intervals [place] Rate: 62 P: 61 [place]: 181 QRS: -13 QRSD: 110 T: 85 QT: 414 QTc: 423 Interpretive Statements SINUS RHYTHM NONSPECIFIC ST & T-WAVE ABNORMALITY Compared to ECG 04/08/2024 12:04:37 Intraventricular conduction delay no longer present T-wave abnormality still present Electronically Signed On 04-13-2024 21:03:13 CDT by JOSE MAYORGA [id number]
--- NOTE | 2024-04-11 11:47 | ED_ITS ---
HPI - Anxiety 2 General: Chief Complaint: Anxiety Stated Complaint: Anxiety Time Seen by Provider: 04/11/24 11:33 Source: patient Mode of arrival: ambulatory Limitations: no limitations History of Present Illness: 64-year-old male is very well-known to t he ER is a history anxiety has been seen here multiple times for anxiety states that he has been having left-sided chest pain where he had rib fractures in the past states he has been feeling extremely anxious as well. Denies any shortness of breath denies any fever denies any vomiting. Associated symptoms: Reports chest pain; Deny chills, fever(s), headache(s), nausea or vomiting Related Data Home Medications Medication Instructions Recorded Confirmed acetaminophen 325 mg tablet 325 mg PO QID PRN Pain 01/29/22 03/25/24 (Tylenol) ergocalciferol (vitamin D2) 1,250 1,250 mcg PO Q7D 01/05/24 03/25/24 mcg (50,000 unit) capsule (Vitamin D2) pantoprazole 40 mg tablet,delayed 40 mg PO DAILY 01/05/24 03/25/24 release sucralfate 1 gram tablet 1 g PO DAILY 01/05/24 03/25/24 hydroxyzine HCl 50 mg tablet 50 mg PO Q6H PRN Anxiety 03/25/24 03/25/24 imipramine HCl 50 mg tablet 50 mg PO BID 03/25/24 03/25/24 prazosin 2 mg capsule 4 mg PO DAILY 03/25/24 03/25/24 Previous Rx's Medication Instructions Recorded buspirone 10 mg tablet 20 mg (2 x 10 mg) PO TID 30 days 04/02/24 #180 tabs quetiapine 25 mg tablet 50 mg (2 x 25 mg) PO BEDTIME 30 04/02/24 days #60 tabs venlafaxine 150 mg 150 mg PO QAM 30 days #30 caps 04/02/24 capsule,extended release 24 hr venlafaxine 75 mg capsule,extended 75 mg PO QAM 30 days #30 caps 04/02/24 release 24 hr Allergies Allergy/AdvReac Type Severity Reaction Status Date / Time cephalexin Allergy Unknown Verified 04/11/24 11:31 Review of Systems 2 Const: Denies: fever(s), chills, body aches or change in appetite ENMT: Denies: dental pain Card: Reports: chest pain Resp: Denies: dyspnea GI: Denies: abdominal pain, nausea, vomiting or diarrhea Musc: Denies: neck pain or back pain Skin/Breast: Denies: rash Neuro: Denies: headache(s) Psych: Reports: anxiety PFSH ED 2 PFSH: Medical History History of flail chest Family History Father Cancer Social History Smoking and tobacco/nicotine status: current every day tobacco/nicotine user cigarettes Packs smoked per day: 0.24 Alcohol intake: never Substance/Drug Use: never Physical Exam 2 Const: COMMON NORMALS: no acute distress, patient oriented x3 and healthy appearing GENERAL APPEARANCE: anxious HENMT: COMMON NORMALS: normocephalic and atraumatic HEAD & SCALP: n ormocephalic and atraumatic Eye: COMMON NORMALS: conjunctivae normal CONJUNCTIVA: Yes conjunctivae normal Neck/C-Spine: COMMON NORMALS: full ROM and supple Chest: COMMONS NORMALS: normal inspection of the chest Resp: COMMON NORMALS: normal respiratory effort, No retractions, No use of accessory muscles and clear to auscultation bilaterally AUSCULTATION: clear to auscultation bilaterally Cardio: COMMON NORMALS: regular rate, regular rhythm and No murmurs present (Cardio) RATE: regular rate RHYTHM: regular rhythm Extremity: COMMON NORMALS: normal to inspection and full ROM Neuro: COMMON NORMALS: patient oriented x3, moves all extremities and no focal motor deficits Psych: COMMON NORMALS: mental status grossly normal, Normal thought process present and cooperative THOUGHT PROCESS: Normal thought process present Skin: COMMON NORMALS: no rashes or lesions noted and no wounds GENERAL SKIN EXAM: no rashes or lesions noted Course 2 Vital Signs: Vital signs: Vital Signs Temperature 97.9 F 04/11/24 11:26 Pulse Rate 75 04/11/24 11:26 Respiratory Rate 17 04/11/24 11:52 Blood Pressure 111/73 04/11/24 11:26 Pulse Oximetry 95 04/11/24 11:52 Oxygen Delivery Me thod Room Air 04/11/24 11:26 Clincial Decision Support The following clinical decision support tools were used to aid in care of the patient HEART Score -> History: Slightly Suspicous, EKG: Normal, Age: 65 or more yrs, Risk Factors: 1 or 2 Risk Factors, Troponin: Baseline Trop 16-45 ng/L. Resulting HEART Score: 4. MDM - Anxiety Medical Decision Making Patient presents here with chest pains atypical in nature likely due to his anxiety troponins here are negative no signs of ACS he stable for discharge follow-up with PCP return if worsening. Medical Records I reviewed the patient's medical records. Lab Data I reviewed the patient's lab results. 04/11/24 11:49 04/11/24 11:49 Radiology Impressions Chest X-Ray 04/11/24 11:37 IMPRESSION: 1. No acute findings. 2. Multiple left rib fractures status post ORIF. Laboratory Results WBC 5.47 10^3/uL (3.29-11.43) 04/11/24 11:49 RBC 4.54 10^6/uL (3.85-5.65) 04/11/24 11:49 Hgb 13.30 g/dL (11.27-16.99) 04/11/24 11:49 Hct 41.7 % (37-53) 04/11/24 11:49 MCV 91.9 fl (82-101) 04/11/24 11:49 MCH 29.3 pg (27-33) 04/11/24 11:49 MCHC 31.9 g/dL (30-55) 04/11/24 11:49 RDW 12.9 % (12.1-15.1) 04/11/24 11:49 Plt Count 249 10^3/cmm (157-399) 04/11/24 11:49 MPV 9.3 fL (7.4-10.4) 04/11/24 11:49 Neut % (Auto) 67.7 % 04/11/24 11:49 Lymph % (Auto) 22.5 % 04/11/24 11:49 [place] % (Auto) 6.6 % 04/11/24 11:49 Eos % (Auto) 1.8 % 04/11/24 11:49 Baso % (Auto) 0.9 % 04/11/24 11:49 Neut # (Auto) 3.70 10^3/uL (1.8-7.7) 04/11/24 11:49 Lymph # (Auto) 1.2 10^3/uL (0.8-4.8) 04/11/24 11:49 [place] # (Auto) 0.4 10^3/uL (0.2-0.9) 04/11/24 11:49 Eos # (Auto) 0.1 10^3/uL (0.0-0.8) 04/11/24 11:49 Baso # (Auto) 0.1 10^3/uL (0.0-0.1) 04/11/24 11:49 Nucleated RBC % (auto) 0 % 04/11/24 11:49 Nucleated RBCs # 0.0 /100WBC 04/11/24 11:49 Sodium 139 mmol/L (136-145) 04/11/24 11:49 Potassium 4.1 mmol/L (3.5-5.1) 04/11/24 11:49 Chloride 102 mmol/L (98-107) 04/11/24 11:49 Carbon Dioxide 30 mmol/L (22-29) H 04/11/24 11:49 Anion Gap 11.1 (5-19) 04/11/24 11:49 BUN 13 mg/dL (8-23) 04/11/24 11:49 Creatinine 0.8 mg/dL (0.7-1.2) 04/11/24 11:49 GFR Calculation 96.7 mL/min (90-130) 04/11/24 11:49 Glucose 112 mg/dL (65-115) 04/11/24 11:49 Calculated Osmolality 289 mOsm/kg (285-295) 04/11/24 11:49 Calcium 8.6 mg/dL (8.5-10.5) 04/11/24 11:49 Total Bilirubin 0.3 mg/dL (0.15-1.2) 04/11/24 11:49 AST 18 U/L (0-40) 04/11/24 11:49 ALT 23 U/L (0-41) 04/11/24 11:49 Alkaline Phosphatase 86 U/L (40-130) 04/11/24 11:49 Troponin T Baseline 21 ng/L (0-15) H 04/11/24 11:49 Troponin T 120 Minute 21.35 ng/L (0-15) H 04/11/24 13:41 Delta Troponin T 0.35 ABS# (0-10) 04/11/24 13:41 Total Protein 6.4 g/dL (6.6-8.7) L 04/11/24 11:49 Albumin 4.1 g/dL (3.5-5.2) 04/11/24 11:49 Globulin 2.3 g/dL (1.3-4.6) 04/11/24 11:49 All radiology interpretation(s) finalized by discharge EKG Data EKG 1: I personally reviewed and interpreted this EKG as follows: EKG interpretation date: 04/11/24 EKG interpretation time: 11:58 Interpretation: Chest X-Ray 04/11/24 11:37 IMPRESSION: 1. No acute findings. 2. Multiple left rib fractures status post ORIF. nsr hr [address] or t wave abnormalities qrs 110 tc 420 Other EKG comments: Chest X-Ray 04/11/24 11:37 IMPRESSION: 1. No acute findings. 2. Multiple left rib fractures status post ORIF. Discharge Plan Discharge Patient Disposition: Home Clinical Impression: Anxiety, Chest pain Condition: Stable Prescriptions: No Action acetaminophen [Tylenol] 325 mg tablet 325 mg PO QID PRN (Reason: Pain) sucralfate 1 gram tablet 1 g PO DAILY pantoprazole 40 mg tablet,delayed release (DR/EC) 40 mg PO DAILY ergocalciferol (vitamin D2) [Vitamin D2] 1,250 mcg (50,000 unit) capsule 1,250 mcg PO Q7D imipramine HCl 50 mg tablet 50 mg PO BID hydroxyzine HCl 50 mg tablet 50 mg PO Q6H PRN (Reason: Anxiety) prazosin 2 mg capsule 4 mg PO DAILY quetiapine 25 mg Tablet 50 mg PO BEDTIME 30 Days Qty: 60 1RF buspirone 10 mg Tablet 20 mg PO TID 30 Days Qty: 180 1RF venlafaxine 75 mg capsule,extended release 24hr 75 mg PO QAM 30 Days Qty: 30 1RF venlafaxine 150 mg capsule,extended release 24hr 150 mg PO QAM 30 Days Qty: 30 1RF Discharge Orders: Discharge ED (Routine); Ordered 04/11/24 Ordered By: Mariano Conway Referrals: Vannessa Jauregui [Primary Care Provider] - Discharge Diet: Advance as tolerated Discharge Activity: Resume usual activity Patient Instructions: Anxiety (ED) Coding Level of Care Code ED Junior Sales Assistant for Amelia Lyman
[2024-04-11] MEDS: morphine 4 mg/mL SDV 1 mL IM (11:52)
[2024-04-11 11:55] LABS: Basophils # 0.1 10^3/uL (0.0-0.1); Basophils % 0.9 %; Eosinophils # 0.1 10^3/uL (0.0-0.8); Eosinophils % 1.8 %; Hematocrit 41.7 % (37-53); Lymphocytes # 1.2 10^3/uL (0.8-4.8); Lymphocytes % 22.5 %; Mean Corpuscular HGB Conc 31.9 g/dL (30-55); Mean Corpuscular Hemoglobin 29.3 pg (27-33); Mean Corpuscular Volume 91.9 fl (82-101); Mean Platelet Volume 9.3 fL (7.4-10.4); Monocytes # 0.4 10^3/uL (0.2-0.9); Monocytes % 6.6 %; Neutrophils % 67.7 %; Nucleated Red Blood Cells % 0 %; Platelet Count 249 10^3/cmm (157-399); Red Blood Count 4.54 10^6/uL (3.85-5.65); Red Cell Distribution Width 12.9 % (12.1-15.1); White Blood Count 5.47 10^3/uL (3.29-11.43)
[2024-04-11 12:16] LABS: Alanine Aminotransferase 23 U/L (0-41); Albumin Level 4.1 g/dL (3.5-5.2); Alkaline Phosphatase 86 U/L (40-130); Anion Gap 11.1 (5-19); Aspartate Amino Transferase 18 U/L (0-40); Blood Urea Nitrogen 13 mg/dL (8-23); Calcium 8.6 mg/dL (8.5-10.5); Carbon Dioxide 30 mmol/L (22-29); Chloride 102 mmol/L (98-107); Globulin 2.3 g/dL (1.3-4.6); Glomerular Filtration Rate 96.7 mL/min (90-130); Glucose 112 mg/dL (65-115); Osmolality Calculated 289 mOsm/kg (285-295); Potassium 4.1 mmol/L (3.5-5.1); Sodium 139 mmol/L (136-145); Total Bilirubin 0.3 mg/dL (0.15-1.2); Total Protein 6.4 g/dL (6.6-8.7)
[2024-04-11 12:17] LABS: Troponin(5th) Baseline 21 ng/L (0-15)
[2024-04-11 14:10] LABS: Troponin 5 2HR 21.35 ng/L (0-15); Troponin 5 2HR Delta 0.35 ABS# (0-10)
== END 2024-04-11 14:26 | disposition home or self-care (01) ==
PROVIDERS: Emergency Provider Emergency Medicine; PCP Internal Medicine
DX: F41.9 Anxiety disorder, unspecified (principal); R07.9 Chest pain, unspecified; F17.210 Nicotine dependence, cigarettes, uncomplicated
CPT/HCPCS: 36415; 71045; 80053; 84484; 85025; 93005; 96372; 99285; J2270

== ENCOUNTER 2024-05-10 12:27 | Emergency (ER) | payer MEDICARE, SELFPAY ==
--- NOTE | 2024-05-10 12:34 | W.ED.PSYCHS ---
HPI - Psych General: Chief Complaint: Anxiety Stated Complaint: anxiety, n/v Time Seen by Provider: 05/10/24 12:29 History of Present Illness: 64-year-old male presents to the emergency room with complaint of anxiety. Patient is extremely hard of hearing complaining of severe anxiety has had some of his medications were decreased recently suspect it was his quetiapine. He said he had gone to [place] and they decreased one of his medications to twice a day. He states he hurts everywhere. He is extremely anxious when we talk to him today he is very hard of hearing which makes communicating difficult. He is frequently nauseous. He was here about a month ago with similar presentation. Related Data Home Medications Medication Instructions Recorded Confirmed ergocalciferol (vitamin D2) 1,250 1,250 mcg PO Q7D 01/05/24 05/10/24 mcg (50,000 unit) capsule (Vitamin D2) pantoprazole 40 mg tablet,delayed 40 mg PO DAILY 01/05/24 05/10/24 release sucralfate 1 gram tablet 1 g PO DAILY 01/05/24 05/10/24 hydroxyzine HCl 50 mg tablet 50 mg PO Q6H PRN Anxiety 03/25/24 05/10/24 prazosin 2 mg capsule 2 mg PO BEDTIME 03/25/24 05/10/24 buspirone 10 mg tablet See Rx Instructions .Route .COMPLEX 05/10/24 05/10/24 eszopiclone 3 mg tablet 3 mg PO BEDTIME 05/10/24 05/10/24 lorazepam 0.5 mg tablet 0.5 mg PO .EVERY 24 HOURS 05/10/24 05/10/24 sertraline 100 mg tablet 100 mg PO DAILY 05/10/24 05/10/24 trazodone 100 mg tablet 100 mg PO BEDTIME 05/10/24 05/10/24 Previous Rx's Medication Instructions Recorded quetiapine 25 mg tablet 50 mg (2 x 25 mg) PO BEDTIME 30 04/02/24 days #60 tabs venlafaxine 150 mg 150 mg PO QAM 30 days #30 caps 04/02/24 capsule,extended release 24 hr venlafaxine 75 mg capsule,extended 75 mg PO QAM 30 days #30 caps 04/02/24 release 24 hr quetiapine 25 mg tablet 25 mg PO BID #60 tabs 05/10/24 Allergies Allergy/AdvReac Type Severity Reaction Status Date / Time cephalexin Allergy Unknown Verified 04/11/24 11:31 Review of Systems Const: Denies: fever(s) or chills Card: Denies: chest pain Resp: Denies: dyspnea GI: Denies: abdominal pain : Denies: dysuria, urinary frequency or urinary urgency Musc: Denies: neck pain or back pain Skin/Breast: Denies: rash PFSH ED PFSH: Medical History History of flail chest Family History Father Cancer Social History Smoking and tobacco/nicotine status: current every day tobacco/nicotine user cigarettes Packs smoked per day: 0.24 Alcohol intake: never Substance/Drug Use: never Physical Exam Const: COMMON NORMALS: no acute distress GENERAL APPEARANCE: cooperative and comfortable ORIENTATION/CONSCIOUSNESS: Yes awake, Yes oriented to person, Yes oriented to place and Yes oriented to time HENMT: COMMON NORMALS: normocephalic, atraumatic and hearing grossly normal bilaterally HEAD & SCALP: normocephalic and atraumatic Resp: COMMON NORMALS: normal respiratory effort, No retractions, No use of accessory muscles and clear to auscultation bilaterally AUSCULTATION: clear to auscultation bilaterally Cardio: COMMON NORMALS: regular rate, regular rhythm and No murmurs present (Cardio) RATE: regular rate RHYTHM: regular rhythm GI: COMMON NORMALS: Soft to palpation and No hepatosplenomegaly present AUSCULTATION: Yes normoactive bowel sounds PALPATION: Yes Soft to palpation, No Tenderness to palpation present (GI), No Guarding due to palpation present (GI) and Yes No hepatosplenomegaly present Extremity: COMMON NORMALS: normal to inspection, capillary refill normal, no clubbing, cyanosis or edema, no calf tenderness and no pedal edema Neuro: SENSORIUM/ORIENTATION: Yes oriented to person, Yes oriented to place and Yes oriented to time Skin: COMMON NORMALS: no rashes or lesions noted GENERAL SKIN EXAM: no rashes or lesions noted Course Vital Signs: Vital signs: Vital Signs Temperature 98.3 F 05/10/24 12:37 Pulse Rate 71 05/10/24 17:00 Respiratory Rate 18 05/10/24 12:37 Blood Pressure 113/69 05/10/24 17:00 Pulse Oximetry 98 05/10/24 17:00 Oxygen Delivery Me thod Room Air 05/10/24 17:00 MDM - Psych Medical Decision Making Anxiety improved after the Ativan discussed Dr. Davila is on-call reviewed the chart recommend stopping the imipramine increase the quetiapine to 25 mg in morning at noon then 50 mg at night follow-up with [facility] or crisis within the week return if he has further problems Medical Records I reviewed the patient's medical records. No radiology studies performed this visit Discharge Plan Discharge Patient Disposition: Home Clinical Impression: Anxiety Condition: Stable Prescriptions: New quetiapine 25 mg tablet 25 mg PO BID Qty: 60 0RF Discontinued quetiapine 50 mg tablet 50 mg PO BEDTIME No Action sucralfate 1 gram tablet 1 g PO DAILY pantoprazole 40 mg tablet,delayed release (DR/EC) 40 mg PO DAILY ergocalciferol (vitamin D2) [Vitamin D2] 1,250 mcg (50,000 unit) capsule 1,250 mcg PO Q7D sertraline 100 mg tablet 100 mg PO DAILY lorazepam 0.5 mg tablet 0.5 mg PO .EVERY 24 HOURS trazodone 100 mg tablet 100 mg PO BEDTIME eszopiclone 3 mg tablet 3 mg PO BEDTIME buspirone 10 mg tablet See Rx Instructions .ROUTE .COMPLEX Rx Instructions: Take 2 tablets by mouth in the morning and evening and take 1 tablet mid-day. hydroxyzine HCl 50 mg tablet 50 mg PO Q6H PRN (Reason: Anxiety) prazosin 2 mg capsule 2 mg PO BEDTIME quetiapine 25 mg Tablet 50 mg PO BEDTIME 30 Days Qty: 60 1RF venlafaxine 75 mg capsule,extended release 24hr 75 mg PO QAM 30 Days Qty: 30 1RF venlafaxine 150 mg capsule,extended release 24hr 150 mg PO QAM 30 Days Qty: 30 1RF Discharge Orders: Discharge ED (Routine); Ordered 05/10/24 Ordered By: Aguilar Dumont Referrals: Vannessa Jauregui [Primary Care Provider] - Discharge Diet: Usual diet Discharge Activity: Increase activity as tolerated Patient Instructions: Opioid Safety, Pain Management Activity Restrictions/Additional Instructions: Thank you for choosing [facility] for your healthcare needs today. It is very important that you follow up as instructed or that you return to the Emergency Department should you have concerns or if your condition changes or worsens in any way. Recommend you increase the quetiapine to 25 mg in the morning and at noon and 50 mg at night. You should no longer take the imipramine. Continue all your other medications as previously planned. She does make a follow-up appointment [facility] within the next week if you cannot be seen there you should be seen at the crisis intervention center within the week. Coding Level of Care Code ED Solar Sales Consultant for Amelia Lyman
[2024-05-10 12:37] VITALS: BP 111/70; PULSE 66; RESP 18; TEMP 36.8; O2SAT 97; BMI 24.1
[2024-05-10] MEDS: LORazepam 1 mg Tablet PO (13:15)
[2024-05-10 14:09] VITALS: BP 100/62; PULSE 71; O2SAT 98
--- NOTE | 2024-05-10 14:46 | PC.PHAR ---
Addendum entered by Taylor Lawson 05/10/24 14:51: Pt states took medications yesterday, but not today. Not sure which medications were taken yesterday. Original Note: Pt has Venlafaxine 150mg and 75mg bottles. Pt has Sertraline 100mg (old bottle). Pt has Quetiapine 50mg 1 tablet at bedtime bottle and a new order for 25mg take 2 tablets at bedtime (burnt orange or brown color: no bottle found). Pt also has Lorazepam 0.5mg daily, bottle.
[2024-05-10 17:00] VITALS: BP 113/69; PULSE 71; O2SAT 98
[2024-05-10 17:10] VITALS: BP 113/69; PULSE 71; O2SAT 98
== END 2024-05-10 17:13 | disposition home or self-care (01) ==
PROVIDERS: Emergency Provider Family Medicine; PCP Internal Medicine
DX: F41.9 Anxiety disorder, unspecified (principal); F17.210 Nicotine dependence, cigarettes, uncomplicated
CPT/HCPCS: 99283

== ENCOUNTER 2024-05-12 16:45 | Emergency (ER) | payer MEDICARE, SELFPAY ==
[2024-05-12 16:49] VITALS: BP 136/79; PULSE 66; RESP 22; TEMP 36.4; O2SAT 97; BMI 24.3
--- NOTE | 2024-05-12 16:55 | ECG_ITS ---
[facility] Date: 2024-05-12 Pat Name: Juan Jose Colvin Department: Room: Gender: Male Equal Employment Opportunity Officer: : 1960 Requested By: Mariano Conway Order Number: [id number] Reading MD: JOSE MAYORGA Measurements Intervals [place] Rate: 62 P: 23 VA: 109 QRS: -19 QRSD: 121 T: 80 QT: 380 QTc: 387 Interpretive Statements SINUS RHYTHM WITH SHORT VA INTERVAL MODERATE INTRAVENTRICULAR CONDUCTION DELAY [110+ ms QRS DURATION] NONSPECIFIC ST & T-WAVE ABNORMALITY Compared to ECG 04/11/2024 11:58:20 Short VA interval now present Intraventricular conduction delay now present T-wave abnormality still present Electronically Signed On 05-12-2024 17:15:52 ROTARY ENGRAVER by JOSE MAYORGA [email or web address]
--- NOTE | 2024-05-12 16:58 | ED.C_ITS ---
HPI - Psych 2 General: Chief Complaint: Anxiety Stated Complaint: anxiety Time Seen by Provider: 05/12/24 16:49 Source: patient and EMS Mode of arrival: EMS Limitations: no limitations History of Present Illness: 64-year-old male well-known to the ER [facility] history anxiety and anxiety attack states he is feeling very anxious today appears anxious states is not able to calm down he denies any chest pain denies any suicidality denies any homicidality. Associated symptoms: Deny depression Related Data Home Medications Medication Instructions Recorded Confirmed ergocalciferol (vitamin D2) 1,250 1,250 mcg PO Q7D 01/05/24 05/10/24 mcg (50,000 unit) capsule (Vitamin D2) pantoprazole 40 mg tablet,delayed 40 mg PO DAILY 01/05/24 05/10/24 release sucralfate 1 gram tablet 1 g PO DAILY 01/05/24 05/10/24 hydroxyzine HCl 50 mg tablet 50 mg PO Q6H PRN Anxiety 03/25/24 05/10/24 prazosin 2 mg capsule 2 mg PO BEDTIME 03/25/24 05/10/24 buspirone 10 mg tablet See Rx Instructions .Route .COMPLEX 05/10/24 05/10/24 eszopiclone 3 mg tablet 3 mg PO BEDTIME 05/10/24 05/10/24 lorazepam 0.5 mg tablet 0.5 mg PO .EVERY 24 HOURS 05/10/24 05/10/24 sertraline 100 mg tablet 100 mg PO DAILY 05/10/24 05/10/24 trazodone 100 mg tablet 100 mg PO BEDTIME 05/10/24 05/10/24 Previous Rx's Medication Instructions Recorded quetiapine 25 mg tablet 50 mg (2 x 25 mg) PO BEDTIME 30 04/02/24 days #60 tabs venlafaxine 150 mg 150 mg PO QAM 30 days #30 caps 04/02/24 capsule,extended release 24 hr venlafaxine 75 mg capsule,extended 75 mg PO QAM 30 days #30 caps 04/02/24 release 24 hr quetiapine 25 mg tablet 25 mg PO BID #60 tabs 05/10/24 Allergies Allergy/AdvReac Type Severity Reaction Status Date / Time cephalexin Allergy Unknown Verified 04/11/24 11:31 Review of Systems 2 Const: Denies: fever(s), chills, body aches or change in appetite ENMT: Denies: throat pain or dental pain Card: Denies: chest pain Resp: Denies: dyspnea GI: Denies: abdominal pain, nausea, vomiting or diarrhea Musc: Denies: neck pain or back pain Skin/Breast: Denies: rash Neuro: Denies: headache(s) Psych: Reports: anxiety; Denies: depression PFSH ED 2 PFSH: Medical History History of flail chest Family History Father Cancer Social History Smoking and tobacco/nicotine status: current every day tobacco/nicotine user cigarettes Packs smoked per day: 0.24 Alcohol intake: never Substance/Drug Use: never Physical Exam 2 Const: COMMON NORMALS: patient oriented x3 and healthy appearing GENERAL APPEARANCE: anxious HENMT: COMMON NORMALS: normocephalic and atraumatic HEAD & SCALP: n ormocephalic and atraumatic Eye: COMMON NORMALS: Equal, round and reactive pupils present and EOMs intact bilaterally PUPIL: Yes Equal, round and reactive pupils present Neck/C-Spine: COMMON NORMALS: full ROM and supple Chest: COMMONS NORMALS: normal inspection of the chest and normal palpation of entire chest wall Resp: COMMON NORMALS: normal respiratory effort, No retractions, No use of accessory muscles and clear to auscultation bilaterally AUSCULTATION: clear to auscultation bilaterally Cardio: COMMON NORMALS: regular rate, regular rhythm and No murmurs present (Cardio) RATE: regular rate RHYTHM: regular rhythm GI: COMMON NORMALS: Normal to inspection, nondistended, normoactive bowel sounds present, Soft to palpation, non-tender and no masses PALPATION: Yes Soft to palpation Extremity: COMMON NORMALS: normal to inspection and full ROM Neuro: COMMON NORMALS: patient oriented x3, moves all extremities and no focal motor deficits Psych: COMMON NORMALS: mental status grossly normal, Normal thought process present and cooperative THOUGHT PROCESS: Normal thought process present Skin: COMMON NORMALS: no rashes or lesions noted and no wounds GENERAL SKIN EXAM: no rashes or lesions noted Course 2 Vital Signs: Vital signs: Vital Signs Temperature 97.6 F 05/12/24 16:49 Pulse Rate 64 05/12/24 18:31 Respiratory Rate 22 H 05/12/24 17:16 Blood Pressure 143/80 05/12/24 18:31 Pulse Oximetry 96 05/12/24 18:31 Oxygen Delivery Me thod Room Air 05/12/24 18:00 MDM - Psych Medical Decision Making Patient presents with anxiety attack he has been well-appearing here feels much improved he is not suicidal or homicidal he stable for discharge follow-up with PCP return if worsening. Medical Records I reviewed the patient's medical records. Lab Data I reviewed the patient's lab results. 05/12/24 17:16 05/12/24 17:16 Laboratory Results WBC 6.54 10^3/uL (3.29-11.43) 05/12/24 17:16 RBC 4.43 10^6/uL (3.85-5.65) 05/12/24 17:16 Hgb 12.90 g/dL (11.27-16.99) 05/12/24 17:16 Hct 41.0 % (37-53) 05/12/24 17:16 MCV 92.6 fl (82-101) 05/12/24 17:16 MCH 29.1 pg (27-33) 05/12/24 17:16 MCHC 31.5 g/dL (30-55) 05/12/24 17:16 RDW 13.1 % (12.1-15.1) 05/12/24 17:16 Plt Count 360 10^3/cmm (157-399) 05/12/24 17:16 MPV 9.9 fL (7.4-10.4) 05/12/24 17:16 Neut % (Auto) 61.5 % 05/12/24 17:16 Lymph % (Auto) 24.2 % 05/12/24 17:16 [place] % (Auto) 8.7 % 05/12/24 17:16 Eos % (Auto) 3.4 % 05/12/24 17:16 Baso % (Auto) 1.4 % 05/12/24 17:16 Neut # (Auto) 4.03 10^3/uL (1.8-7.7) 05/12/24 17:16 Lymph # (Auto) 1.6 10^3/uL (0.8-4.8) 05/12/24 17:16 [place] # (Auto) 0.6 10^3/uL (0.2-0.9) 05/12/24 17:16 Eos # (Auto) 0.2 10^3/uL (0.0-0.8) 05/12/24 17:16 Baso # (Auto) 0.1 10^3/uL (0.0-0.1) 05/12/24 17:16 Nucleated RBC % (auto) 0 % 05/12/24 17:16 Nucleated RBCs # 0.0 /100WBC 05/12/24 17:16 Sodium 143 mmol/L (136-145) 05/12/24 17:16 Potassium 3.9 mmol/L (3.5-5.1) 05/12/24 17:16 Chloride 102 mmol/L (98-107) 05/12/24 17:16 Carbon Dioxide 32 mmol/L (22-29) H 05/12/24 17:16 Anion Gap 12.9 (5-19) 05/12/24 17:16 BUN 17 mg/dL (8-23) 05/12/24 17:16 Creatinine 0.9 mg/dL (0.7-1.2) 05/12/24 17:16 GFR Calculation 84.4 mL/min (90-130) L 05/12/24 17:16 Glucose 77 mg/dL (65-115) 05/12/24 17:16 Calculated Osmolality 296 mOsm/kg (285-295) H 05/12/24 17:16 Calcium 9.6 mg/dL (8.5-10.5) 05/12/24 17:16 Total Bilirubin 0.3 mg/dL (0.15-1.2) 05/12/24 17:16 AST 12 U/L (0-40) 05/12/24 17:16 ALT 18 U/L (0-41) 05/12/24 17:16 Alkaline Phosphatase 82 U/L (40-130) 05/12/24 17:16 Total Protein 7.2 g/dL (6.6-8.7) 05/12/24 17:16 Albumin 4.0 g/dL (3.5-5.2) 05/12/24 17:16 Globulin 3.2 g/dL (1.3-4.6) 05/12/24 17:16 Lipase 22 U/L (13-60) 05/12/24 17:16 No radiology studies performed this visit Discharge Plan Discharge Patient Disposition: Home Clinical Impression: Anxiety Condition: Stable Prescriptions: No Action sucralfate 1 gram tablet 1 g PO DAILY pantoprazole 40 mg tablet,delayed release (DR/EC) 40 mg PO DAILY ergocalciferol (vitamin D2) [Vitamin D2] 1,250 mcg (50,000 unit) capsule 1,250 mcg PO Q7D sertraline 100 mg tablet 100 mg PO DAILY lorazepam 0.5 mg tablet 0.5 mg PO .EVERY 24 HOURS trazodone 100 mg tablet 100 mg PO BEDTIME eszopiclone 3 mg tablet 3 mg PO BEDTIME buspirone 10 mg tablet See Rx Instructions .ROUTE .COMPLEX Rx Instructions: Take 2 tablets by mouth in the morning and evening and take 1 tablet mid-day. quetiapine 25 mg tablet 25 mg PO BID Qty: 60 0RF hydroxyzine HCl 50 mg tablet 50 mg PO Q6H PRN (Reason: Anxiety) prazosin 2 mg capsule 2 mg PO BEDTIME quetiapine 25 mg Tablet 50 mg PO BEDTIME 30 Days Qty: 60 1RF venlafaxine 75 mg capsule,extended release 24hr 75 mg PO QAM 30 Days Qty: 30 1RF venlafaxine 150 mg capsule,extended release 24hr 150 mg PO QAM 30 Days Qty: 30 1RF Discharge Orders: Discharge ED (Routine); Ordered 05/12/24 Ordered By: Mariano Conway Referrals: Vannessa Jauregui [Primary Care Provider] - Discharge Diet: Advance as tolerated Discharge Activity: Resume usual activity Patient Instructions: Anxiety (ED) Coding Level of Care Code ED Department Director for Amelia Lyman
[2024-05-12] MEDS: LORazepam 2 mg/mL INJ 1 mL 1 MG IVP (17:10)
[2024-05-12 17:16] VITALS: BP 145/77; PULSE 62; RESP 22; O2SAT 97
[2024-05-12 17:32] LABS: Basophils # 0.1 10^3/uL (0.0-0.1); Basophils % 1.4 %; Eosinophils # 0.2 10^3/uL (0.0-0.8); Eosinophils % 3.4 %; Lymphocytes # 1.6 10^3/uL (0.8-4.8); Lymphocytes % 24.2 %; Mean Corpuscular HGB Conc 31.5 g/dL (30-55); Mean Corpuscular Hemoglobin 29.1 pg (27-33); Mean Corpuscular Volume 92.6 fl (82-101); Mean Platelet Volume 9.9 fL (7.4-10.4); Monocytes # 0.6 10^3/uL (0.2-0.9); Monocytes % 8.7 %; Neutrophils # 4.03 10^3/uL (1.8-7.7); Neutrophils % 61.5 %; Nucleated Red Blood Cells % 0 %; Platelet Count 360 10^3/cmm (157-399); Red Blood Count 4.43 10^6/uL (3.85-5.65); Red Cell Distribution Width 13.1 % (12.1-15.1); White Blood Count 6.54 10^3/uL (3.29-11.43)
[2024-05-12 17:47] LABS: Alanine Aminotransferase 18 U/L (0-41); Alkaline Phosphatase 82 U/L (40-130); Anion Gap 12.9 (5-19); Aspartate Amino Transferase 12 U/L (0-40); Blood Urea Nitrogen 17 mg/dL (8-23); Calcium 9.6 mg/dL (8.5-10.5); Carbon Dioxide 32 mmol/L (22-29); Chloride 102 mmol/L (98-107); Creatinine Clr Calc Pharmacy 95.6898; Globulin 3.2 g/dL (1.3-4.6); Glomerular Filtration Rate 84.4 mL/min (90-130); Glucose 77 mg/dL (65-115); Lipase 22 U/L (13-60); Osmolality Calculated 296 mOsm/kg (285-295); Potassium 3.9 mmol/L (3.5-5.1); Sodium 143 mmol/L (136-145); Total Bilirubin 0.3 mg/dL (0.15-1.2); Total Protein 7.2 g/dL (6.6-8.7)
[2024-05-12 18:00] VITALS: BP 143/80; PULSE 60; O2SAT 97
[2024-05-12 18:31] VITALS: BP 143/80; PULSE 64; O2SAT 96
== END 2024-05-12 18:32 | disposition home or self-care (01) ==
PROVIDERS: Emergency Provider Emergency Medicine; PCP Internal Medicine
DX: F41.9 Anxiety disorder, unspecified (principal); F17.210 Nicotine dependence, cigarettes, uncomplicated
CPT/HCPCS: 80053; 83690; 85025; 93005; 96374; 99284; J2060

== ENCOUNTER 2024-05-22 11:43 | Emergency (ER) | payer MEDICARE, SELFPAY ==
[2024-05-22 11:52] VITALS: BP 127/77; PULSE 76; RESP 18; TEMP 36.4; O2SAT 98
--- NOTE | 2024-05-22 12:04 | W.ED.GENADLT ---
HPI - General Adult General: Chief complaint: General Medical Stated complaint: MHE Time Seen by Provider: 05/22/24 11:50 History of Present Illness: Patient presents to the ER for anxiety, patient wants his Effexor increased because he said it works but does not works good enough. Patient is very hard of hearing, patient has no other complaints. Patient has a doctor's appointment on Friday already. But does not want a wait until then. Related Data Home Medications Medication Instructions Recorded Confirmed ergocalciferol (vitamin D2) 1,250 1,250 mcg PO Q7D 01/05/24 05/10/24 mcg (50,000 unit) capsule (Vitamin D2) pantoprazole 40 mg tablet,delayed 40 mg PO DAILY 01/05/24 05/10/24 release sucralfate 1 gram tablet 1 g PO DAILY 01/05/24 05/10/24 hydroxyzine HCl 50 mg tablet 50 mg PO Q6H PRN Anxiety 03/25/24 05/10/24 prazosin 2 mg capsule 2 mg PO BEDTIME 03/25/24 05/10/24 buspirone 10 mg tablet See Rx Instructions .Route .COMPLEX 05/10/24 05/10/24 eszopiclone 3 mg tablet 3 mg PO BEDTIME 05/10/24 05/10/24 lorazepam 0.5 mg tablet 0.5 mg PO .EVERY 24 HOURS 05/10/24 05/10/24 sertraline 100 mg tablet 100 mg PO DAILY 05/10/24 05/10/24 trazodone 100 mg tablet 100 mg PO BEDTIME 05/10/24 05/10/24 Previous Rx's Medication Instructions Recorded quetiapine 25 mg tablet 50 mg (2 x 25 mg) PO BEDTIME 30 04/02/24 days #60 tabs venlafaxine 150 mg 150 mg PO QAM 30 days #30 caps 04/02/24 capsule,extended release 24 hr venlafaxine 75 mg capsule,extended 75 mg PO QAM 30 days #30 caps 04/02/24 release 24 hr quetiapine 25 mg tablet 25 mg PO BID #60 tabs 05/10/24 Allergies Allergy/AdvReac Type Severity Reaction Status Date / Time cephalexin Allergy Unknown Verified 04/11/24 11:31 [facility] ED PFS: Medical History History of flail chest Family History Father Cancer Social History Smoking and tobacco/nicotine status: current every day tobacco/nicotine user cigarettes Packs smoked per day: 0.24 Alcohol intake: never Substance/Drug Use: never Physical Exam Const: COMMON NORMALS: no acute distress, average body habitus, patient oriented x3, no limitations, healthy appearing, alert and well nourished HENMT: COMMON NORMALS: normocephalic, atraumatic, hearing grossly normal bilaterally, external ears normal, Normal external nose present and moist oral mucous membranes HEAD & SCALP: normocephalic and atraumatic NOSE: Normal external nose present EXTERNAL EAR: Yes external ears normal Neck/C-Spine: COMMON NORMALS: no JVD Chest: COMMONS NORMALS: normal inspection of the chest and normal palpation of entire chest wall Resp: COMMON NORMALS: normal respiratory effort, No retractions, No use of accessory muscles and clear to auscultation bilaterally AUSCULTATION: clear to auscultation bilaterally Cardio: COMMON NORMALS: no JVD, regular rate, regular rhythm, S1 normal heart sound present, S2 normal heart sound present, No gallops present (Cardio), No clicks present (Cardio), No murmurs present (Cardio) and No rub (Cardio) RATE: regular rate RHYTHM: regular rhythm HEART SOUNDS: S1 normal heart sound present and S2 normal heart sound present GI: COMMON NORMALS: Normal to inspection, nondistended, normoactive bowel sounds present, Soft to palpation, non-tender, No hepatosplenomegaly present and no masses PALPATION: Yes Soft to palpation and Yes No hepatosplenomegaly present Neuro: COMMON NORMALS: patient oriented x3 SENSORIUM/ORIENTATION: Yes alert Course Vital Signs: Vital signs: Vital Signs Temperature 97.6 F 05/22/24 11:52 Pulse Rate 76 05/22/24 11:52 Respiratory Rate 18 05/22/24 11:52 Blood Pressure 127/77 05/22/24 11:52 Pulse Oximetry 98 05/22/24 11:52 Oxygen Delivery Me thod Room Air 05/22/24 11:52 MDM - General Adult Medical Decision Making Patient only complaint is that he is anxious and needs his medicine increase. Upon medicine review he is on multiple psychiatric and anxiety type medicines. Some at high doses. We will increase the lorazepam from 1 pill every 24 hours to 2 pills every 24 hours just until seen by primary care on Friday. Medical Records I reviewed the patient's medical records. Lab Data I reviewed the patient's lab results. No radiology studies performed this visit Discharge Plan Discharge Patient Disposition: Home Clinical Impression: Anxiety Condition: Stable Prescriptions: No Action sucralfate 1 gram tablet 1 g PO DAILY pantoprazole 40 mg tablet,delayed release (DR/EC) 40 mg PO DAILY ergocalciferol (vitamin D2) [Vitamin D2] 1,250 mcg (50,000 unit) capsule 1,250 mcg PO Q7D sertraline 100 mg tablet 100 mg PO DAILY lorazepam 0.5 mg tablet 0.5 mg PO .EVERY 24 HOURS trazodone 100 mg tablet 100 mg PO BEDTIME eszopiclone 3 mg tablet 3 mg PO BEDTIME buspirone 10 mg tablet See Rx Instructions .ROUTE .COMPLEX Rx Instructions: Take 2 tablets by mouth in the morning and evening and take 1 tablet mid-day. quetiapine 25 mg tablet 25 mg PO BID Qty: 60 0RF hydroxyzine HCl 50 mg tablet 50 mg PO Q6H PRN (Reason: Anxiety) prazosin 2 mg capsule 2 mg PO BEDTIME quetiapine 25 mg Tablet 50 mg PO BEDTIME 30 Days Qty: 60 1RF venlafaxine 75 mg capsule,extended release 24hr 75 mg PO QAM 30 Days Qty: 30 1RF venlafaxine 150 mg capsule,extended release 24hr 150 mg PO QAM 30 Days Qty: 30 1RF Discharge Orders: Discharge ED (Routine); Ordered 05/22/24 Ordered By: Adi Mart Referrals: Vannessa Jauregui [Primary Care Provider] - 1-3 days Patient Instructions: Anxiety (ED) Activity Restrictions/Additional Instructions: Please increase your lorazepam from 1 pill once a day to 1 pill twice a day until seen by primary care at your appointment on Friday. This will help with your short-term anxiety. Please keep your appointment on Friday with your primary care doctor as you may benefit from further medication management. Coding Level of Care Code ED Policy Analyst for Amelia Lyman
== END 2024-05-22 12:29 | disposition home or self-care (01) ==
PROVIDERS: Emergency Provider Emergency Medicine; PCP Internal Medicine
DX: F41.9 Anxiety disorder, unspecified (principal); F17.210 Nicotine dependence, cigarettes, uncomplicated
CPT/HCPCS: 99283

== ENCOUNTER 2024-05-28 14:03 | Emergency (ER) | payer MEDICARE, SELFPAY ==
[2024-05-28 14:07] VITALS: BP 132/83; PULSE 79; RESP 22; O2SAT 99; BMI 23.1
--- NOTE | 2024-05-28 14:12 | ED_ITS ---
HPI - Anxiety General: Chief Complaint: Anxiety Stated Complaint: anxiety Time Seen by Provider: 05/28/24 14:05 Source: patient and family (daughter in law) Mode of arrival: EMS History of Present Illness: Patient is a 64-year-old male who presents to ED today along with his [id number]-va-[id number] for evaluation of anxiety. Patient is well-known to the emergency department and has had multiple ER visits over the past 6 months or so. Imndoxvq-mr-[id number] states his cognitive abilities have significantly declined over the past 6 to 8 months. Bxgxgpiq-wn-qor states he currently lives alone as his is recently went to live in a assisted. Htnagthd-hn-rqv does state they live right next door to the patient. Patient is an extremely poor historian. He is very hard of hearing. MD complaint: anxiety and other (probable dementia) Onset (ago): month(s) Severity: moderate Quality: constant Place: home History of similar episodes: Yes Relieving factors: nothing Exacerbating factors: nothing Associated symptoms: Reports confusion; Deny chest pain, fever(s) or headache(s) Related Data Home Medications Medication Instructions Recorded Confirmed ergocalciferol (vitamin D2) 1,250 1,250 mcg PO Q7D 01/05/24 05/10/24 mcg (50,000 unit) capsule (Vitamin D2) pantoprazole 40 mg tablet,delayed 40 mg PO DAILY 01/05/24 05/10/24 release sucralfate 1 gram tablet 1 g PO DAILY 01/05/24 05/10/24 hydroxyzine HCl 50 mg tablet 50 mg PO Q6H PRN Anxiety 03/25/24 05/10/24 prazosin 2 mg capsule 2 mg PO BEDTIME 03/25/24 05/10/24 buspirone 10 mg tablet See Rx Instructions .Route .COMPLEX 05/10/24 05/10/24 eszopiclone 3 mg tablet 3 mg PO BEDTIME 05/10/24 05/10/24 lorazepam 0.5 mg tablet 0.5 mg PO .EVERY 24 HOURS 05/10/24 05/10/24 sertraline 100 mg tablet 100 mg PO DAILY 05/10/24 05/10/24 trazodone 100 mg tablet 100 mg PO BEDTIME 05/10/24 05/10/24 Previous Rx's Medication Instructions Recorded quetiapine 25 mg tablet 50 mg (2 x 25 mg) PO BEDTIME 30 04/02/24 days #60 tabs venlafaxine 150 mg 150 mg PO QAM 30 days #30 caps 04/02/24 capsule,extended release 24 hr venlafaxine 75 mg capsule,extended 75 mg PO QAM 30 days #30 caps 04/02/24 release 24 hr quetiapine 25 mg tablet 25 mg PO BID #60 tabs 05/10/24 Allergies Allergy/AdvReac Type Severity Reaction Status Date / Time cephalexin Allergy Unknown Verified 04/11/24 11:31 Review of Systems Const: Denies: fever(s) Card: Denies: chest pain Resp: Denies: dyspnea GI: Denies: abdominal pain Neuro: Reports: confusion and behavioral changes; Denies: headache(s), frequent falls, dizziness, Slurred speech present or seizure-like activity PFSH ED PFSH: Medical History History of flail chest Family History Father Cancer Social History Smoking and tobacco/nicotine status: current every day tobacco/nicotine user cigarettes Packs smoked per day: 0.24 Alcohol intake: never Substance/Drug Use: never Physical Exam Const: COMMON NORMALS: average body habitus, patient oriented x3, no limitations and alert GENERAL APPEARANCE: cooperative and disheveled JOHN ENTATION/CONSCIOUSNESS: Yes awake, Yes oriented to person and Yes oriented to place OTHER: I have seen patient previously and he is at his normal mental baseline HENMT: COMMON NORMALS: not normocephalic and head/scalp not atraumatic HEAD & SCALP: not normal to inspection, not normocephalic and not atraumatic Resp: COMMON NORMALS: normal respiratory effort and clear to auscultation bilaterally AUSCULTATION: clear to auscultation bilaterally Cardio: COMMON NORMALS: regular rate and regular rhythm RATE: regular rate RHYTHM: regular rhythm Extremity: GENERAL: Yes normal exam except as noted Neuro: YONY COMA SCALE: document GCS findings [place] coma scale eye opening: Spontaneous [place] coma scale verbal response: Orientated [place] coma scale motor response: Obey commands [place] coma scale total score: 15 COMMON NORMALS: patient oriented x3, CN's II-XII intact bilaterally, moves all extremities, no focal motor deficits, no sensory deficits noted and gait normal SENSORIUM/ORIENTATION: Yes alert, Yes oriented to person and Yes oriented to place Course Vital Signs: Vital signs: Vital Signs Temperature 97.6 F 05/28/24 14:31 Pulse Rate 81 05/28/24 14:58 Respiratory Rate 22 H 05/28/24 14:07 Blood Pressure 132/83 05/28/24 14:58 Pulse Oximetry 97 05/28/24 14:58 Oxygen Delivery Me thod Room Air 05/28/24 14:07 MDM - Anxiety Medical Decision Making Patient is 64-year-old male who is exhibiting dementia symptoms over the past 6 to 8 months. He reportedly has no history of dementia. I do not have any documentation through his primary care office. I believe I have recommended neurology follow-up in the past with patient does not have the cognitive ability to remember appointment date and times so he never follows up outside of an emergency standpoint. Spoke to daughter in law today and recommended she help keep his appointment as I am going to refer him to neurology again. Daughter in law states he currently lives alone. They are trying to obtain guardianship over him. She is asking about a geriatric psych facility or dementia unit. It does sound like patient was at [facility] recently. He adamantly does not want to go back there stating they did not help him. Patient is very hyper fixated on his anxiety. He has been on multiple different medication regimens for anxiety nothing seems to help . Nobody has ever done a formal dementia assessment or starting him on dementia medications. Spoke to luireksa-yh-wpo without talking to his primary care provider in regards to this. Ultimately I feel patient will eventually need a long-term care/dementia facility. He is not acutely suicidal or homicidal. Patient would like to go home at this time. Dpbuvckl-gh-fig feels comfortable taking him home. Medical Records I reviewed the patient's medical records. No radiology studies performed this visit Discharge Plan Discharge Patient Disposition: Home Clinical Impression: Anxiety Dementia Qualifiers: Dementia type: unspecified type Dementia severity: severe Dementia behavioral or psychological symptom: with other behavioral disturbance Qualified Code(s): F03.C18 - Unspecified dementia, severe, with other behavioral disturbance Condition: Stable Prescriptions: No Action sucralfate 1 gram tablet 1 g PO DAILY pantoprazole 40 mg tablet,delayed release (DR/EC) 40 mg PO DAILY ergocalciferol (vitamin D2) [Vitamin D2] 1,250 mcg (50,000 unit) capsule 1,250 mcg PO Q7D sertraline 100 mg tablet 100 mg PO DAILY lorazepam 0.5 mg tablet 0.5 mg PO .EVERY 24 HOURS trazodone 100 mg tablet 100 mg PO BEDTIME eszopiclone 3 mg tablet 3 mg PO BEDTIME buspirone 10 mg tablet See Rx Instructions .ROUTE .COMPLEX Rx Instructions: Take 2 tablets by mouth in the morning and evening and take 1 tablet mid-day. quetiapine 25 mg tablet 25 mg PO BID Qty: 60 0RF hydroxyzine HCl 50 mg tablet 50 mg PO Q6H PRN (Reason: Anxiety) prazosin 2 mg capsule 2 mg PO BEDTIME quetiapine 25 mg Tablet 50 mg PO BEDTIME 30 Days Qty: 60 1RF venlafaxine 75 mg capsule,extended release 24hr 75 mg PO QAM 30 Days Qty: 30 1RF venlafaxine 150 mg capsule,extended release 24hr 150 mg PO QAM 30 Days Qty: 30 1RF Discharge Orders: Discharge ED (Routine); Ordered 05/28/24 Ordered By: Lydia Goldsmith Referrals: Vannessa Jauregui [Primary Care Provider] - Activity Restrictions/Additional Instructions: As we discussed patient needs to follow-up with his primary care provider to see if she can help get him into a long-term care facility. You need to work with her in trying to obtain guardianship. I have placed a case management referral to get him set up with neurology for further evaluation and treatment of his dementia like symptoms. Coding Level of Care Code ED Director Sanitation Bureau for [facility]
[2024-05-28 14:31] VITALS: TEMP 36.4
[2024-05-28] MEDS: LORazepam 2 mg/mL INJ 1 mL IM (14:51)
[2024-05-28 14:58] VITALS: BP 132/83; PULSE 81; O2SAT 97
== END 2024-05-28 15:15 | disposition home or self-care (01) ==
PROVIDERS: Emergency Provider Physician Assistant; PCP Internal Medicine
DX: F41.9 Anxiety disorder, unspecified (principal); F03.C18 Unspecified dementia, severe, with other behavioral disturbance; F17.210 Nicotine dependence, cigarettes, uncomplicated
CPT/HCPCS: 99284; J2060

== ENCOUNTER 2024-06-03 21:28 | Emergency (ER) | payer MEDICARE, SELFPAY ==
[2024-06-03 21:29] VITALS: BP 114/65; PULSE 66; RESP 18; TEMP 36.6; O2SAT 95; BMI 23.0
[2024-06-03 21:46] VITALS: BP 114/65; PULSE 65; RESP 22; O2SAT 93
--- NOTE | 2024-06-03 22:02 | W.ED.GENADLT ---
HPI - General Adult General: Chief complaint: General Medical Stated complaint: ABD Pain, Post UTI Time Seen by Provider: 06/03/24 21:32 History of Present Illness: Patient resents to the ER with complaints of anxiety and abdominal pain as well as pain all over his body. Per nursing his found the patient just had a recent diagnosis of UTI at [facility] and took 1 dose of the antibiotics. Per chart review this appears to be ciprofloxacin 500 mg it is thought patient's family is trying to get the patient placed in prison secondary to dementia. Patient is a frequent attendee to the ER usually for anxiety. Related Data Home Medications Medication Instructions Recorded Confirmed ergocalciferol (vitamin D2) 1,250 1,250 mcg PO Q7D 01/05/24 05/10/24 mcg (50,000 unit) capsule (Vitamin D2) pantoprazole 40 mg tablet,delayed 40 mg PO DAILY 01/05/24 05/10/24 release sucralfate 1 gram tablet 1 g PO DAILY 01/05/24 05/10/24 hydroxyzine HCl 50 mg tablet 50 mg PO Q6H PRN Anxiety 03/25/24 05/10/24 prazosin 2 mg capsule 2 mg PO BEDTIME 03/25/24 05/10/24 buspirone 10 mg tablet See Rx Instructions .Route .COMPLEX 05/10/24 05/10/24 eszopiclone 3 mg tablet 3 mg PO BEDTIME 05/10/24 05/10/24 lorazepam 0.5 mg tablet 0.5 mg PO .EVERY 24 HOURS 05/10/24 05/10/24 sertraline 100 mg tablet 100 mg PO DAILY 05/10/24 05/10/24 trazodone 100 mg tablet 100 mg PO BEDTIME 05/10/24 05/10/24 Previous Rx's Medication Instructions Recorded quetiapine 25 mg tablet 50 mg (2 x 25 mg) PO BEDTIME 30 04/02/24 days #60 tabs venlafaxine 150 mg 150 mg PO QAM 30 days #30 caps 04/02/24 capsule,extended release 24 hr venlafaxine 75 mg capsule,extended 75 mg PO QAM 30 days #30 caps 04/02/24 release 24 hr quetiapine 25 mg tablet 25 mg PO BID #60 tabs 05/10/24 Allergies Allergy/AdvReac Type Severity Reaction Status Date / Time cephalexin Allergy Unknown Verified 04/11/24 11:31 Review of Systems General: Reports: 10 or more systems reviewed and unremarkable except in HPI and below PFSH ED PFSH: Medical History History of flail chest Family History Father Cancer Social History Smoking and tobacco/nicotine status: current every day tobacco/nicotine user cigarettes Packs smoked per day: 0.24 Alcohol intake: never Substance/Drug Use: never Physical Exam Const: COMMON NORMALS: no acute distress, average body habitus, patient oriented x3, no limitations, healthy appearing, alert and well nourished HENMT: COMMON NORMALS: normocephalic, atraumatic, hearing grossly normal bilaterally, external ears normal, Normal external nose present and moist oral mucous membranes HEAD & SCALP: normocephalic and atraumatic NOSE: Normal external nose present EXTERNAL EAR: Yes external ears normal Neck/C-Spine: COMMON NORMALS: no JVD Chest: COMMONS NORMALS: normal inspection of the chest and normal palpation of entire chest wall Resp: COMMON NORMALS: normal respiratory effort, No retractions, No use of accessory muscles and clear to auscultation bilaterally AUSCULTATION: clear to auscultation bilaterally Cardio: COMMON NORMALS: no JVD, regular rate, regular rhythm, S1 normal heart sound present, S2 normal heart sound present, No gallops present (Cardio), No clicks present (Cardio) and No murmurs present (Cardio) RATE: regular rate RHYTHM: regular rhythm HEART SOUNDS: S1 normal heart sound present and S2 normal heart sound present GI: COMMON NORMALS: Normal to inspection, nondistended, normoactive bowel sounds present, Soft to palpation, non-tender, No hepatosplenomegaly present and no masses PALPATION: Yes Soft to palpation and Yes No hepatosplenomegaly present Neuro: COMMON NORMALS: patient oriented x3 SENSORIUM/ORIENTATION: Yes alert Course Vital Signs: Vital signs: Vital Signs Temperature 97.8 F 06/03/24 21:29 Pulse Rate 65 06/03/24 21:46 Respiratory Rate 22 H 06/03/24 21:46 Blood Pressure 114/65 06/03/24 21:46 Pulse Oximetry 93 06/03/24 21:46 Oxygen Delivery Me thod Room Air 06/03/24 21:46 MDM - General Adult Medical Decision Making Lab work was obtained included CBC CMP lipase, all of which essentially benign. Patient is in no acute distress during his entire stay. Patient be discharged home and should continue his antibiotics for his UTI. Medical Records I reviewed the patient's medical records. Lab Data I reviewed the patient's lab results. 06/03/24 22:05 06/03/24 22:05 Laboratory Results WBC 6.03 10^3/uL (3.29-11.43) 06/03/24 22:05 RBC 4.19 10^6/uL (3.85-5.65) 06/03/24 22:05 Hgb 12.30 g/dL (11.27-16.99) 06/03/24 22:05 Hct 38.4 % (37-53) 06/03/24 22:05 MCV 91.6 fl (82-101) 06/03/24 22:05 MCH 29.4 pg (27-33) 06/03/24 22:05 MCHC 32.0 g/dL (30-55) 06/03/24 22:05 RDW 13.2 % (12.1-15.1) 06/03/24 22:05 Plt Count 176 10^3/cmm (157-399) 06/03/24 22:05 MPV 9.7 fL (7.4-10.4) 06/03/24 22:05 Neut % (Auto) 55.6 % 06/03/24 22:05 Lymph % (Auto) 26.7 % 06/03/24 22:05 Antelope % (Auto) 10.9 % 06/03/24 22:05 Eos % (Auto) 5.5 % 06/03/24 22:05 Baso % (Auto) 1.0 % 06/03/24 22:05 Neut # (Auto) 3.35 10^3/uL (1.8-7.7) 06/03/24 22:05 Lymph # (Auto) 1.6 10^3/uL (0.8-4.8) 06/03/24 22:05 Antelope # (Auto) 0.7 10^3/uL (0.2-0.9) 06/03/24 22:05 Eos # (Auto) 0.3 10^3/uL (0.0-0.8) 06/03/24 22:05 Baso # (Auto) 0.1 10^3/uL (0.0-0.1) 06/03/24 22:05 Nucleated RBC % (auto) 0 % 06/03/24 22:05 Nucleated RBCs # 0.0 /100WBC 06/03/24 22:05 Sodium 140 mmol/L (136-145) 06/03/24 22:05 Potassium 4.1 mmol/L (3.5-5.1) 06/03/24 22:05 Chloride 101 mmol/L (98-107) 06/03/24 22:05 BUN 26 mg/dL (8-23) H 06/03/24 22:05 Creatinine 1.0 mg/dL (0.7-1.2) 06/03/24 22:05 GFR Calculation 74.8 mL/min (90-130) L 06/03/24 22:05 Glucose 79 mg/dL (65-115) 06/03/24 22:05 Calculated Osmolality 294 mOsm/kg (285-295) 06/03/24 22:05 Calcium 9.1 mg/dL (8.5-10.5) 06/03/24 22:05 Total Bilirubin 0.3 mg/dL (0.15-1.2) 06/03/24 22:05 AST 10 U/L (0-40) 06/03/24 22:05 ALT 11 U/L (0-41) 06/03/24 22:05 Total Protein 6.3 g/dL (6.6-8.7) L 06/03/24 22:05 Albumin 3.8 g/dL (3.5-5.2) 06/03/24 22:05 Globulin 2.5 g/dL (1.3-4.6) 06/03/24 22:05 Lipase 32 U/L (13-60) 06/03/24 22:05 All radiology interpretation(s) finalized by discharge Discharge Plan Discharge Patient Disposition: Home Clinical Impression: Anxiety Abdominal pain Qualifiers: Abdominal location: unspecified location Qualified Code(s): R10.9 - Unspecified abdominal pain Condition: Stable Prescriptions: No Action sucralfate 1 gram tablet 1 g PO DAILY pantoprazole 40 mg tablet,delayed release (DR/EC) 40 mg PO DAILY ergocalciferol (vitamin D2) [Vitamin D2] 1,250 mcg (50,000 unit) capsule 1,250 mcg PO Q7D sertraline 100 mg tablet 100 mg PO DAILY lorazepam 0.5 mg tablet 0.5 mg PO .EVERY 24 HOURS trazodone 100 mg tablet 100 mg PO BEDTIME eszopiclone 3 mg tablet 3 mg PO BEDTIME buspirone 10 mg tablet See Rx Instructions .ROUTE .COMPLEX Rx Instructions: Take 2 tablets by mouth in the morning and evening and take 1 tablet mid-day. quetiapine 25 mg tablet 25 mg PO BID Qty: 60 0RF hydroxyzine HCl 50 mg tablet 50 mg PO Q6H PRN (Reason: Anxiety) prazosin 2 mg capsule 2 mg PO BEDTIME quetiapine 25 mg Tablet 50 mg PO BEDTIME 30 Days Qty: 60 1RF venlafaxine 75 mg capsule,extended release 24hr 75 mg PO QAM 30 Days Qty: 30 1RF venlafaxine 150 mg capsule,extended release 24hr 150 mg PO QAM 30 Days Qty: 30 1RF Discharge Orders: Discharge ED (Routine); Ordered 06/03/24 Ordered By: Adi Mart Referrals: Vannessa Jauregui [Primary Care Provider] - 1 week Patient Instructions: Abdominal Pain (ED), Anxiety (ED) Activity Restrictions/Additional Instructions: Thank you for choosing [facility] for your healthcare needs today. Please realize that you were seen in the emergency department and that we are providing you with an emergency medical screening exam and this may not be a complete and all exclusive of all testing and/or medical workup we may need to determine your element or severity of your illness. It is very important that you follow-up as instructed with your primary care provider or specialist for the additional evaluation and to discuss your medical treatment plan. You may return to the emergency department should you have concerns or if your condition changes or worsens in any way. Coding Level of Care Code ED Instrumentation And Controls Designer for [facility]
[2024-06-03 22:11] LABS: Basophils # 0.1 10^3/uL (0.0-0.1); Eosinophils # 0.3 10^3/uL (0.0-0.8); Eosinophils % 5.5 %; Hematocrit 38.4 % (37-53); Lymphocytes # 1.6 10^3/uL (0.8-4.8); Lymphocytes % 26.7 %; Mean Corpuscular Hemoglobin 29.4 pg (27-33); Mean Corpuscular Volume 91.6 fl (82-101); Mean Platelet Volume 9.7 fL (7.4-10.4); Monocytes # 0.7 10^3/uL (0.2-0.9); Monocytes % 10.9 %; Neutrophils # 3.35 10^3/uL (1.8-7.7); Neutrophils % 55.6 %; Nucleated Red Blood Cells % 0 %; Platelet Count 176 10^3/cmm (157-399); Red Blood Count 4.19 10^6/uL (3.85-5.65); Red Cell Distribution Width 13.2 % (12.1-15.1); White Blood Count 6.03 10^3/uL (3.29-11.43)
[2024-06-03 22:28] LABS: Alanine Aminotransferase 11 U/L (0-41); Albumin Level 3.8 g/dL (3.5-5.2); Aspartate Amino Transferase 10 U/L (0-40); Blood Urea Nitrogen 26 mg/dL (8-23); Calcium 9.1 mg/dL (8.5-10.5); Chloride 101 mmol/L (98-107); Creatinine Clr Calc Pharmacy 86.4201; Globulin 2.5 g/dL (1.3-4.6); Glomerular Filtration Rate 74.8 mL/min (90-130); Glucose 79 mg/dL (65-115); Lipase 32 U/L (13-60); Osmolality Calculated 294 mOsm/kg (285-295); Potassium 4.1 mmol/L (3.5-5.1); Sodium 140 mmol/L (136-145); Total Bilirubin 0.3 mg/dL (0.15-1.2); Total Protein 6.3 g/dL (6.6-8.7)
[2024-06-03 22:47] VITALS: BP 102/57; PULSE 73; RESP 14; O2SAT 96
[2024-06-03 23:00] VITALS: PULSE 73; RESP 19; O2SAT 96
[2024-06-03 23:31] LABS: Alkaline Phosphatase 72 U/L (40-130); Anion Gap 14.1 (5-19); Carbon Dioxide 29 mmol/L (22-29)
[2024-06-04] VITALS (16 sets, daily range): BP systolic 93–127; BP diastolic 60–75; PULSE 54–72; RESP 12–20; O2SAT 93–100
== END 2024-06-04 08:00 | disposition home or self-care (01) ==
PROVIDERS: Emergency Provider Emergency Medicine; PCP Internal Medicine
DX: F41.9 Anxiety disorder, unspecified (principal); R10.9 Unspecified abdominal pain; F17.210 Nicotine dependence, cigarettes, uncomplicated
CPT/HCPCS: 36415; 80053; 83690; 85025; 99283

== ENCOUNTER 2024-06-09 16:09 | Emergency (ER) | payer MEDICARE, SELFPAY ==
[2024-06-09 16:14] VITALS: BP 134/73; PULSE 73; RESP 18; TEMP 36.7; O2SAT 98
--- NOTE | 2024-06-09 16:22 | W.ED.ANXIETY ---
HPI - Anxiety General: Chief Complaint: Anxiety Stated Complaint: anxiety Time Seen by Provider: 06/09/24 16:12 Source: patient and EMS Mode of arrival: EMS Limitations: no limitations History of Present Illness: 64-year-old male has a history anxiety he is very well-known here he has been seen her multiple times for anxiety. Patient denies any SI HI has no other complaints states he feels like his anxiety meds are not working for him Associated symptoms: Deny chest pain, chills, fever(s), headache(s), nausea or vomiting Related Data Home Medications Medication Instructions Recorded Confirmed ergocalciferol (vitamin D2) 1,250 1,250 mcg PO Q7D 01/05/24 05/10/24 mcg (50,000 unit) capsule (Vitamin D2) pantoprazole 40 mg tablet,delayed 40 mg PO DAILY 01/05/24 05/10/24 release sucralfate 1 gram tablet 1 g PO DAILY 01/05/24 05/10/24 hydroxyzine HCl 50 mg tablet 50 mg PO Q6H PRN Anxiety 03/25/24 05/10/24 prazosin 2 mg capsule 2 mg PO BEDTIME 03/25/24 05/10/24 buspirone 10 mg tablet See Rx Instructions .Route .COMPLEX 05/10/24 05/10/24 eszopiclone 3 mg tablet 3 mg PO BEDTIME 05/10/24 05/10/24 lorazepam 0.5 mg tablet 0.5 mg PO .EVERY 24 HOURS 05/10/24 05/10/24 sertraline 100 mg tablet 100 mg PO DAILY 05/10/24 05/10/24 trazodone 100 mg tablet 100 mg PO BEDTIME 05/10/24 05/10/24 Previous Rx's Medication Instructions Recorded quetiapine 25 mg tablet 50 mg (2 x 25 mg) PO BEDTIME 30 04/02/24 days #60 tabs venlafaxine 150 mg 150 mg PO QAM 30 days #30 caps 04/02/24 capsule,extended release 24 hr venlafaxine 75 mg capsule,extended 75 mg PO QAM 30 days #30 caps 04/02/24 release 24 hr quetiapine 25 mg tablet 25 mg PO BID #60 tabs 05/10/24 Allergies Allergy/AdvReac Type Severity Reaction Status Date / Time cephalexin Allergy Unknown Verified 04/11/24 11:31 Review of Systems Const: Denies: fever(s), chills, body aches or change in appetite Eyes: Denies: eye discomfort ENMT: Denies: throat pain or dental pain Card: Denies: chest pain Resp: Denies: dyspnea GI: Denies: abdominal pain, nausea, vomiting or diarrhea Musc: Denies: neck pain or back pain Skin/Breast: Denies: rash Neuro: Denies: headache(s) Psych: Reports: anxiety PFSH ED PFSH: Medical History History of flail chest Family History Father Cancer Social History Smoking and tobacco/nicotine status: current every day tobacco/nicotine user cigarettes Packs smoked per day: 0.24 Alcohol intake: never Substance/Drug Use: never Physical Exam Const: COMMON NORMALS: no acute distress, patient oriented x3 and healthy appearing HENMT: COMMON NORMALS: normocephalic and atraumatic HEAD & SCALP: normocephalic and atraumatic Neck/C-Spine: COMMON NORMALS: full ROM and supple Chest: COMMONS NORMALS: normal inspection of the chest Resp: COMMON NORMALS: normal respiratory effort Cardio: COMMON NORMALS: regular rate, regular rhythm and No murmurs present (Cardio) RATE: regular rate RHYTHM: regular rhythm Extremity: COMMON NORMALS: normal to inspection and full ROM Neuro: COMMON NORMALS: patient oriented x3, moves all extremities and no focal motor deficits Psych: COMMON NORMALS: mental status grossly normal, Normal thought process present and cooperative MOOD & AFFECT: Yes anxious THOUGHT PROCESS: Normal thought process present Skin: COMMON NORMALS: no rashes or lesions noted and no wounds GENERAL SKIN EXAM: no rashes or lesions noted Course Vital Signs: Vital signs: Vital Signs Temperature 98.1 F 06/09/24 16:14 Pulse Rate 73 06/09/24 16:14 Respiratory Rate 18 06/09/24 16:14 Blood Pressure 134/73 06/09/24 16:14 Pulse Oximetry 98 06/09/24 16:14 Oxygen Delivery Me thod Room Air 06/09/24 16:14 MDM - Anxiety Medical Decision Making Patient presents here with anxiety he is well-appearing here not SI or HI he has been seen here multiple times for this in the past with him Ativan inform he needs a follow-up with PCP return if worsening. Medical Records I reviewed the patient's medical records. No radiology studies performed this visit Discharge Plan Discharge Patient Disposition: Home Clinical Impression: Acute anxiety Condition: Stable Prescriptions: No Action sucralfate 1 gram tablet 1 g PO DAILY pantoprazole 40 mg tablet,delayed release (DR/EC) 40 mg PO DAILY ergocalciferol (vitamin D2) [Vitamin D2] 1,250 mcg (50,000 unit) capsule 1,250 mcg PO Q7D sertraline 100 mg tablet 100 mg PO DAILY lorazepam 0.5 mg tablet 0.5 mg PO .EVERY 24 HOURS trazodone 100 mg tablet 100 mg PO BEDTIME eszopiclone 3 mg tablet 3 mg PO BEDTIME buspirone 10 mg tablet See Rx Instructions .ROUTE .COMPLEX Rx Instructions: Take 2 tablets by mouth in the morning and evening and take 1 tablet mid-day. quetiapine 25 mg tablet 25 mg PO BID Qty: 60 0RF hydroxyzine HCl 50 mg tablet 50 mg PO Q6H PRN (Reason: Anxiety) prazosin 2 mg capsule 2 mg PO BEDTIME quetiapine 25 mg Tablet 50 mg PO BEDTIME 30 Days Qty: 60 1RF venlafaxine 75 mg capsule,extended release 24hr 75 mg PO QAM 30 Days Qty: 30 1RF venlafaxine 150 mg capsule,extended release 24hr 150 mg PO QAM 30 Days Qty: 30 1RF Discharge Orders: Discharge ED (Routine); Ordered 06/09/24 Ordered By: Mariano Conway Referrals: Vannessa Jauregui [Primary Care Provider] - 4-7 days Discharge Diet: Advance as tolerated Discharge Activity: Resume usual activity Patient Instructions: Anxiety (ED) Coding Level of Care Code ED Head Sugar Reprocess Operator for [facility]
== END 2024-06-09 16:47 | disposition home or self-care (01) ==
PROVIDERS: Emergency Provider Emergency Medicine; PCP Internal Medicine
DX: F41.8 Other specified anxiety disorders (principal); F17.210 Nicotine dependence, cigarettes, uncomplicated
CPT/HCPCS: 99283

== ENCOUNTER 2024-07-16 15:25 | Emergency (ER) | payer MEDICARE, SELFPAY ==
[2024-07-16 15:28] VITALS: BP 121/64; PULSE 68; RESP 16; TEMP 36.6; O2SAT 100
--- NOTE | 2024-07-16 19:22 | ED_ITS ---
Documented by User: HANNAH Traore 07/16/24 19:50 HPI - Anxiety General: Chief Complaint: Anxiety Stated Complaint: mhe Time Seen by Provider: 07/16/24 19:13 Source: patient Mode of arrival: ambulatory Limitations: no limitations History of Present Illness: Patient is a 64-year-old male who is well-known to the emergency department presenting with anxiety. Exam and review of systems is severely limited by is hard of hearing, states that he is simply here for shot as his Effexor has not been working. States he thinks he needs his dose increased, I ask him who prescribes this and he states it supposed to be my primary care provider. I asked him if he has ever been a crisis center, he does not acknowledge this. He has been here to the neuropsychiatric unit before, he does not endorse suicidal or homicidal ideations. He is not having any hallucinations, no other symptoms at this time other than feeling anxious. MD complaint: anxiety Onset (ago): hour(s) Severity: similar to previous episodes Quality: constant History of similar episodes: Yes Provoking factors: none known (Does not report any) Related Data Home Medications Medication Instructions Recorded Confirmed ergocalciferol (vitamin D2) 1,250 1,250 mcg PO Q7D 01/05/24 05/10/24 mcg (50,000 unit) capsule (Vitamin D2) pantoprazole 40 mg tablet,delayed 40 mg PO DAILY 01/05/24 05/10/24 release sucralfate 1 gram tablet 1 g PO DAILY 01/05/24 05/10/24 hydroxyzine HCl 50 mg tablet 50 mg PO Q6H PRN Anxiety 03/25/24 05/10/24 prazosin 2 mg capsule 2 mg PO BEDTIME 03/25/24 05/10/24 buspirone 10 mg tablet See Rx Instructions .Route .COMPLEX 05/10/24 05/10/24 eszopiclone 3 mg tablet 3 mg PO BEDTIME 05/10/24 05/10/24 lorazepam 0.5 mg tablet 0.5 mg PO .EVERY 24 HOURS 05/10/24 05/10/24 sertraline 100 mg tablet 100 mg PO DAILY 05/10/24 05/10/24 trazodone 100 mg tablet 100 mg PO BEDTIME 05/10/24 05/10/24 Previous Rx's Medication Instructions Recorded quetiapine 25 mg tablet 50 mg (2 x 25 mg) PO BEDTIME 30 04/02/24 days #60 tabs venlafaxine 150 mg 150 mg PO QAM 30 days #30 caps 04/02/24 capsule,extended release 24 hr venlafaxine 75 mg capsule,extended 75 mg PO QAM 30 days #30 caps 04/02/24 release 24 hr quetiapine 25 mg tablet 25 mg PO BID #60 tabs 05/10/24 Allergies Allergy/AdvReac Type Severity Reaction Status Date / Time cephalexin Allergy Unknown Verified 07/16/24 15:37 Review of Systems General: Reports: Other (Limited by hard of hearing, poor historian) Psych: Reports: anxiety; Denies: depression, visual hallucinations, auditory hallucinations, tactile hallucinations, suicidal ideation or homicidal ideation PFS ED PFSH: Medical History History of flail chest Family History Father Cancer Social History Smoking and tobacco/nicotine status: current every day tobacco/nicotine user cigarettes Packs smoked per day: 0.24 Alcohol intake: never Substance/Drug Use: never Physical Exam Const: COMMON NORMALS: no acute distress and patient oriented x3 EXAM LIMITATIONS: physical limitations (Hard of hearing) GENERAL APPEARANCE: disheveled ORIENTATION/CONSCIOUSNESS: Yes awake HENMT: COMMON NORMALS: normocephalic and atraumatic HEAD & SCALP: normocephalic and atraumatic Eye: COMMON NORMALS: Equal, round and reactive pupils present and EOMs intact bilaterally PUPIL: Yes Equal, round and reactive pupils present Resp: COMMON NORMALS: normal respiratory effort, No retractions, No use of accessory muscles and clear to auscultation bilaterally AUSCULTATION: clear to auscultation bilaterally Cardio: COMMON NORMALS: regular rate, regular rhythm, No gallops present (Cardio), No murmurs present (Cardio) and No rub (Cardio) RATE: regular rate RHYTHM: regular rhythm Extremity: COMMON NORMALS: normal to inspection and full ROM Neuro: COMMON NORMALS: patient oriented x3, moves all extremities, no focal motor deficits and no sensory deficits noted Psych: COMMON NORMALS: Normal thought process present APPEARANCE: Yes disheveled ATTITUDE: Yes agitated ACTIVITY/MOTOR BEHAVIOR: Yes appropriate eye contact MOOD & AFFECT: Yes anxious THOUGHT PROCESS: Normal thought process present THOUGHT CONTENT: Yes Normal thought content present, No Suicidality present, No Homicidality present and No Hallucination(s) present Course Vital Signs: Vital signs: Vital Signs Temperature 97.9 F 07/16/24 15:28 Pulse Rate 68 07/16/24 15:28 Respiratory Rate 16 07/16/24 15:28 Blood Pressure 121/64 07/16/24 15:28 Pulse Oximetry 100 07/16/24 15:28 Oxygen Delivery Me thod Room Air 07/16/24 15:28 MDM - Anxiety Medical Decision Making Patient well-known to the emergency department here, presenting today stating he just wanted a shot for anxiety. He specifically did not endorse any suicidal homicidal ideations. I believe that he has never been to the crisis center before, informed him that he needs to follow-up here to have his medications adjusted if he really feels that his Effexor is not working. He does not meet any admissions criteria at this time to the neuropsychiatric unit, will give him a shot of Ativan as he has had in the past and states works for him, and have him return if he does have any concerning symptoms arise. No radiology studies performed this visit Discharge Plan Discharge Patient Disposition: Home Clinical Impression: Anxiety Condition: Stable Prescriptions: No Action sucralfate 1 gram tablet 1 g PO DAILY pantoprazole 40 mg tablet,delayed release (DR/EC) 40 mg PO DAILY ergocalciferol (vitamin D2) [Vitamin D2] 1,250 mcg (50,000 unit) capsule 1,250 mcg PO Q7D sertraline 100 mg tablet 100 mg PO DAILY lorazepam 0.5 mg tablet 0.5 mg PO .EVERY 24 HOURS trazodone 100 mg tablet 100 mg PO BEDTIME eszopiclone 3 mg tablet 3 mg PO BEDTIME buspirone 10 mg tablet See Rx Instructions .ROUTE .COMPLEX Rx Instructions: Take 2 tablets by mouth in the morning and evening and take 1 tablet mid-day. quetiapine 25 mg tablet 25 mg PO BID Qty: 60 0RF hydroxyzine HCl 50 mg tablet 50 mg PO Q6H PRN (Reason: Anxiety) prazosin 2 mg capsule 2 mg PO BEDTIME quetiapine 25 mg Tablet 50 mg PO BEDTIME 30 Days Qty: 60 1RF venlafaxine 75 mg capsule,extended release 24hr 75 mg PO QAM 30 Days Qty: 30 1RF venlafaxine 150 mg capsule,extended release 24hr 150 mg PO QAM 30 Days Qty: 30 1RF Discharge Orders: Discharge ED (Routine); Ordered 07/16/24 Ordered By: Lon Pennington Referrals: Vannessa Jauregui [Primary Care Provider] - Patient Instructions: Anxiety (ED) Activity Restrictions/Additional Instructions: Please follow-up with the crisis center so that you can have your medications adjusted as needed. Please return if you develop any suicidal thoughts, homicidal thoughts, hallucinations, or other concerning symptoms. Coding Level of Care Code ED Equipment Engineer for [facility] Documented by User: Aguilar Dumont DO 07/17/24 06:47 HPI - Anxiety General: Chief Complaint: Anxiety Stated Complaint: mhe Time Seen by Provider: 07/16/24 19:13 Related Data Home Medications Medication Instructions Recorded Confirmed ergocalciferol (vitamin D2) 1,250 1,250 mcg PO Q7D 01/05/24 05/10/24 mcg (50,000 unit) capsule (Vitamin D2) pantoprazole 40 mg tablet,delayed 40 mg PO DAILY 01/05/24 05/10/24 release sucralfate 1 gram tablet 1 g PO DAILY 01/05/24 05/10/24 hydroxyzine HCl 50 mg tablet 50 mg PO Q6H PRN Anxiety 03/25/24 05/10/24 prazosin 2 mg capsule 2 mg PO BEDTIME 03/25/24 05/10/24 buspirone 10 mg tablet See Rx Instructions .Route .COMPLEX 05/10/24 05/10/24 eszopiclone 3 mg tablet 3 mg PO BEDTIME 05/10/24 05/10/24 lorazepam 0.5 mg tablet 0.5 mg PO .EVERY 24 HOURS 05/10/24 05/10/24 sertraline 100 mg tablet 100 mg PO DAILY 05/10/24 05/10/24 trazodone 100 mg tablet 100 mg PO BEDTIME 05/10/24 05/10/24 Previous Rx's Medication Instructions Recorded quetiapine 25 mg tablet 50 mg (2 x 25 mg) PO BEDTIME 30 04/02/24 days #60 tabs venlafaxine 150 mg 150 mg PO QAM 30 days #30 caps 04/02/24 capsule,extended release 24 hr venlafaxine 75 mg capsule,extended 75 mg PO QAM 30 days #30 caps 04/02/24 release 24 hr quetiapine 25 mg tablet 25 mg PO BID #60 tabs 05/10/24 Allergies Allergy/AdvReac Type Severity Reaction Status Date / Time cephalexin Allergy Unknown Verified 07/16/24 15:37 [facility] ED PFSH: Medical History History of flail chest Family History Father Cancer Social History Smoking and tobacco/nicotine status: current every day tobacco/nicotine user cigarettes Packs smoked per day: 0.24 Alcohol intake: never Substance/Drug Use: never Course Vital Signs: Vital signs: Vital Signs Temperature 97.9 F 07/16/24 15:28 Pulse Rate 68 07/16/24 15:28 Respiratory Rate 16 07/16/24 15:28 Blood Pressure 121/64 07/16/24 15:28 Pulse Oximetry 100 07/16/24 15:28 Oxygen Delivery Me thod Room Air 07/16/24 15:28 MDM - Anxiety Medical Decision Making Patient well-known to the emergency department here, presenting today stating he just wanted a shot for anxiety. He specifically did not endorse any suicidal homicidal ideations. I believe that he has never been to the crisis center before, informed him that he needs to follow-up here to have his medications adjusted if he really feels that his Effexor is not working. He does not meet any admissions criteria at this time to the neuropsychiatric unit, will give him a shot of Ativan as he has had in the past and states works for him, and have him return if he does have any concerning symptoms arise. Chart reviewed Discharge Plan Discharge Patient Disposition: Home Clinical Impression: Anxiety Condition: Stable Prescriptions: No Action sucralfate 1 gram tablet 1 g PO DAILY pantoprazole 40 mg tablet,delayed release (DR/EC) 40 mg PO DAILY ergocalciferol (vitamin D2) [Vitamin D2] 1,250 mcg (50,000 unit) capsule 1,250 mcg PO Q7D sertraline 100 mg tablet 100 mg PO DAILY lorazepam 0.5 mg tablet 0.5 mg PO .EVERY 24 HOURS trazodone 100 mg tablet 100 mg PO BEDTIME eszopiclone 3 mg tablet 3 mg PO BEDTIME buspirone 10 mg tablet See Rx Instructions .ROUTE .COMPLEX Rx Instructions: Take 2 tablets by mouth in the morning and evening and take 1 tablet mid-day. quetiapine 25 mg tablet 25 mg PO BID Qty: 60 0RF hydroxyzine HCl 50 mg tablet 50 mg PO Q6H PRN (Reason: Anxiety) prazosin 2 mg capsule 2 mg PO BEDTIME quetiapine 25 mg Tablet 50 mg PO BEDTIME 30 Days Qty: 60 1RF venlafaxine 75 mg capsule,extended release 24hr 75 mg PO QAM 30 Days Qty: 30 1RF venlafaxine 150 mg capsule,extended release 24hr 150 mg PO QAM 30 Days Qty: 30 1RF Discharge Orders: Discharge ED (Routine); Ordered 07/16/24 Ordered By: Lon Pennington Referrals: Vannessa Jauregui [Primary Care Provider] - Patient Instructions: Anxiety (ED) Activity Restrictions/Additional Instructions: Please follow-up with the crisis center so that you can have your medications adjusted as needed. Please return if you develop any suicidal thoughts, homicidal thoughts, hallucinations, or other concerning symptoms. Coding Level of Care Code ED Equipment Engineer for Amelia Lyman
[2024-07-16] MEDS: LORazepam 2 mg/mL INJ 1 mL IM (19:31)
== END 2024-07-16 19:35 | disposition home or self-care (01) ==
PROVIDERS: Emergency Provider Physician Assistant; PCP Internal Medicine
DX: F41.9 Anxiety disorder, unspecified (principal); F17.210 Nicotine dependence, cigarettes, uncomplicated
CPT/HCPCS: 96372; 99284; J2060

== ENCOUNTER 2024-07-21 17:59 | Emergency (ER) | payer MEDICARE, SELFPAY ==
[2024-07-21 18:01] VITALS: BP 140/83; PULSE 62; RESP 14; TEMP 36.6; O2SAT 100; BMI 23.1
[2024-07-21] MEDS: ondansetron 2 mg/ML SDV 2 mL 4 MG IVP (18:23)
[2024-07-21 18:28] LABS: Basophils # 0.1 10^3/uL (0.0-0.1); Eosinophils # 0.4 10^3/uL (0.0-0.8); Eosinophils % 6.1 %; Hematocrit 43.4 % (37-53); Lymphocytes # 1.6 10^3/uL (0.8-4.8); Lymphocytes % 27.5 %; Mean Corpuscular HGB Conc 32.3 g/dL (30-55); Mean Corpuscular Hemoglobin 29.8 pg (27-33); Mean Corpuscular Volume 92.3 fl (82-101); Mean Platelet Volume 9.1 fL (7.4-10.4); Monocytes # 0.6 10^3/uL (0.2-0.9); Monocytes % 10.5 %; Neutrophils # 3.23 10^3/uL (1.8-7.7); Neutrophils % 54.6 %; Nucleated Red Blood Cells % 0 %; Platelet Count 216 10^3/cmm (157-399); Red Cell Distribution Width 13.5 % (12.1-15.1); White Blood Count 5.92 10^3/uL (3.29-11.43)
[2024-07-21 18:48] LABS: Alanine Aminotransferase 21 U/L (0-41); Albumin Level 4.3 g/dL (3.5-5.2); Alkaline Phosphatase 96 U/L (40-130); Anion Gap 11.4 (5-19); Aspartate Amino Transferase 14 U/L (0-40); Blood Urea Nitrogen 13 mg/dL (8-23); Calcium 9.1 mg/dL (8.5-10.5); Carbon Dioxide 30 mmol/L (22-29); Chloride 103 mmol/L (98-107); Creatinine Clr Calc Pharmacy 86.6067; Globulin 3.1 g/dL (1.3-4.6); Glomerular Filtration Rate 74.8 mL/min (90-130); Glucose 83 mg/dL (65-115); Lipase 20 U/L (13-60); Osmolality Calculated 289 mOsm/kg (285-295); Potassium 4.4 mmol/L (3.5-5.1); Sodium 140 mmol/L (136-145); Total Bilirubin 0.3 mg/dL (0.15-1.2); Total Protein 7.4 g/dL (6.6-8.7)
--- NOTE | 2024-07-21 18:56 | ED_ITS ---
HPI - Nausea/Vomiting/Diarrhea 2 General: Chief complaint: Nausea/Vomiting/Diarrhea Stated complaint: abd pain Time Seen by Provider: 07/21/24 18:06 History of Present Illness: Patient presents to the ER with complaints of abdominal fullness and anxiety. Says he has had several bouts of nausea and diarrhea. Patient states he does have chronic anxiety and does know if this is a true stomach issue or just his anxiety flaring up. Patient denies any other complaints at this time. Related Data Home Medications Medication Instructions Recorded Confirmed ergocalciferol (vitamin D2) 1,250 1,250 mcg PO Q7D 01/05/24 05/10/24 mcg (50,000 unit) capsule (Vitamin D2) pantoprazole 40 mg tablet,delayed 40 mg PO DAILY 01/05/24 05/10/24 release sucralfate 1 gram tablet 1 g PO DAILY 01/05/24 05/10/24 hydroxyzine HCl 50 mg tablet 50 mg PO Q6H PRN Anxiety 03/25/24 05/10/24 prazosin 2 mg capsule 2 mg PO BEDTIME 03/25/24 05/10/24 buspirone 10 mg tablet See Rx Instructions .Route .COMPLEX 05/10/24 05/10/24 eszopiclone 3 mg tablet 3 mg PO BEDTIME 05/10/24 05/10/24 lorazepam 0.5 mg tablet 0.5 mg PO .EVERY 24 HOURS 05/10/24 05/10/24 sertraline 100 mg tablet 100 mg PO DAILY 05/10/24 05/10/24 trazodone 100 mg tablet 100 mg PO BEDTIME 05/10/24 05/10/24 Previous Rx's Medication Instructions Recorded quetiapine 25 mg tablet 50 mg (2 x 25 mg) PO BEDTIME 30 04/02/24 days #60 tabs venlafaxine 150 mg 150 mg PO QAM 30 days #30 caps 04/02/24 capsule,extended release 24 hr venlafaxine 75 mg capsule,extended 75 mg PO QAM 30 days #30 caps 04/02/24 release 24 hr quetiapine 25 mg tablet 25 mg PO BID #60 tabs 05/10/24 Allergies Allergy/AdvReac Type Severity Reaction Status Date / Time cephalexin Allergy Unknown Verified 07/16/24 15:37 Review of Systems 2 General: Reports: 10 or more systems reviewed and unremarkable except in HPI and below PFSH ED 2 PFSH: Medical History History of flail chest Family History Father Cancer Social History Smoking and tobacco/nicotine status: current every day tobacco/nicotine user cigarettes Packs smoked per day: 0.24 Alcohol intake: never Substance/Drug Use: never Physical Exam 2 Const: COMMON NORMALS: no acute distress, average body habitus, patient oriented x3, no limitations, healthy appearing, alert and well nourished HENMT: COMMON NORMALS: normocephalic, atraumatic, hearing grossly normal bilaterally, external ears normal, Normal external nose present and moist oral mucous membranes HEAD & SCALP: normocephalic and atraumatic NOSE: Normal external nose present EXTERNAL EAR: Yes external ears normal Neck/C-Spine: COMMON NORMALS: no JVD Chest: COMMONS NORMALS: normal inspection of the chest and normal palpation of entire chest wall Resp: COMMON NORMALS: normal respiratory effort, No retractions, No use of accessory muscles and clear to auscultation bilaterally AUSCULTATION: clear to auscultation bilaterally Cardio: COMMON NORMALS: no JVD, regular rate, regular rhythm, S1 normal heart sound present, S2 normal heart sound present, No gallops present (Cardio), No clicks present (Cardio), No murmurs present (Cardio) and No rub (Cardio) R ATE: regular rate RHYTHM: regular rhythm HEART SOUNDS: S1 normal heart sound present and S2 normal heart sound present GI: COMMON NORMALS: Normal to inspection, nondistended, normoactive bowel sounds present, Soft to palpation, non-tender, No hepatosplenomegaly present and no masses PALPATION: Yes Soft to palpation and Yes No hepatosplenomegaly present Neuro: COMMON NORMALS: patient oriented x3 SENSORIUM/ORIENTATION: Yes alert Course 2 Vital Signs: Vital signs: Vital Signs Temperature 97.8 F 07/21/24 18:01 Pulse Rate 62 07/21/24 18:01 Respiratory Rate 14 07/21/24 18:01 Blood Pressure 140/83 07/21/24 18:01 Pulse Oximetry 100 07/21/24 18:01 Oxygen Delivery Me thod Room Air 07/21/24 18:01 MDM - Nausea/Vomiting/Diarrhea Medical Decision Making Lab work was unremarkable, patient was given Zofran, patient be discharged home. Medical Records I reviewed the patient's medical records. Lab Data I reviewed the patient's lab results. 07/21/24 18:26 07/21/24 18:26 Laboratory Results WBC 5.92 10^3/uL (3.29-11.43) 07/21/24 18:26 RBC 4.70 10^6/uL (3.85-5.65) 07/21/24 18:26 Hgb 14.00 g/dL (11.27-16.99) 07/21/24 18:26 Hct 43.4 % (37-53) 07/21/24 18: MCV 92.3 fl (82-101) 07/21/24 18:26 MCH 29.8 pg (27-33) 07/21/24 18: MCHC 32.3 g/dL (30-55) 07/21/24 18:26 RDW 13.5 % (12.1-15.1) 07/21/24 18:26 Plt Count 216 10^3/cmm (157-399) 07/21/24 18:26 MPV 9.1 fL (7.4-10.4) 07/21/24 18:26 Neut % (Auto) 54.6 % 07/21/24 18:26 Lymph % (Auto) 27.5 % 07/21/24 18:26 Benson % (Auto) 10.5 % 07/21/24 18:26 Eos % (Auto) 6.1 % 07/21/24 18:26 Baso % (Auto) 1.0 % 07/21/24 18:26 Neut # (Auto) 3.23 10^3/uL (1.8-7.7) 07/21/24 18:26 Lymph # (Auto) 1.6 10^3/uL (0.8-4.8) 07/21/24 18:26 Benson # (Auto) 0.6 10^3/uL (0.2-0.9) 07/21/24 18:26 Eos # (Auto) 0.4 10^3/uL (0.0-0.8) 07/21/24 18:26 Baso # (Auto) 0.1 10^3/uL (0.0-0.1) 07/21/24 18:26 Nucleated RBC % (auto) 0 % 07/21/24 18: Nucleated RBCs # 0.0 /100WBC 07/21/24 18:26 Sodium 140 mmol/L (136-145) 07/21/24 18:26 Potassium 4.4 mmol/L (3.5-5.1) 07/21/24 18:26 Chloride 103 mmol/L (98-107) 07/21/24 18:26 Carbon Dioxide 30 mmol/L (22-29) H 07/21/24 18:26 Anion Gap 11.4 (5-19) 07/21/24 18:26 BUN 13 mg/dL (8-23) 07/21/24 18:26 Creatinine 1.0 mg/dL (0.7-1.2) 07/21/24 18:26 GFR Calculation 74.8 mL/min (90-130) L 07/21/24 18:26 Glucose 83 mg/dL (65-115) 07/21/24 18:26 Calculated Osmolality 289 mOsm/kg (285-295) 07/21/24 18:26 Calcium 9.1 mg/dL (8.5-10.5) 07/21/24 18:26 Total Bilirubin 0.3 mg/dL (0.15-1.2) 07/21/24 18:26 AST 14 U/L (0-40) 07/21/24 18:26 ALT 21 U/L (0-41) 07/21/24 18:26 Alkaline Phosphatase 96 U/L (40-130) 07/21/24 18:26 Total Protein 7.4 g/dL (6.6-8.7) 07/21/24 18:26 Albumin 4.3 g/dL (3.5-5.2) 07/21/24 18:26 Globulin 3.1 g/dL (1.3-4.6) 07/21/24 18:26 Lipase 20 U/L (13-60) 07/21/24 18:26 No radiology studies performed this visit Discharge Plan Discharge Patient Disposition: Home Clinical Impression: Anxiety Condition: Stable Prescriptions: No Action sucralfate 1 gram tablet 1 g PO DAILY pantoprazole 40 mg tablet,delayed release (DR/EC) 40 mg PO DAILY ergocalciferol (vitamin D2) [Vitamin D2] 1,250 mcg (50,000 unit) capsule 1,250 mcg PO Q7D sertraline 100 mg tablet 100 mg PO DAILY lorazepam 0.5 mg tablet 0.5 mg PO .EVERY 24 HOURS trazodone 100 mg tablet 100 mg PO BEDTIME eszopiclone 3 mg tablet 3 mg PO BEDTIME buspirone 10 mg tablet See Rx Instructions .ROUTE .COMPLEX Rx Instructions: Take 2 tablets by mouth in the morning and evening and take 1 tablet mid-day. quetiapine 25 mg tablet 25 mg PO BID Qty: 60 0RF hydroxyzine HCl 50 mg tablet 50 mg PO Q6H PRN (Reason: Anxiety) prazosin 2 mg capsule 2 mg PO BEDTIME quetiapine 25 mg Tablet 50 mg PO BEDTIME 30 Days Qty: 60 1RF venlafaxine 75 mg capsule,extended release 24hr 75 mg PO QAM 30 Days Qty: 30 1RF venlafaxine 150 mg capsule,extended release 24hr 150 mg PO QAM 30 Days Qty: 30 1RF Discharge Orders: Discharge ED (Routine); Ordered 07/21/24 Ordered By: Adi Mart Referrals: Vannessa Jauregui [Primary Care Provider] - 1 week Patient Instructions: Anxiety (ED) Activity Restrictions/Additional Instructions: Thank you for choosing [facility] for your healthcare needs today. Please realize that you were seen in the emergency department and that we are providing you with an emergency medical screening exam and this may not be a complete and all exclusive of all testing and/or medical workup we may need to determine your element or severity of your illness. It is very important that you follow-up as instructed with your primary care provider or specialist for the additional evaluation and to discuss your medical treatment plan. You may return to the emergency department should you have concerns or if your condition changes or worsens in any way. Coding Level of Care Code ED Strategic Marketing Manager for Amelia Lyman
[2024-07-21 19:35] VITALS: BP 144/84; PULSE 61; O2SAT 100
== END 2024-07-21 19:30 | disposition home or self-care (01) ==
PROVIDERS: Emergency Provider Emergency Medicine; PCP Internal Medicine
DX: F41.9 Anxiety disorder, unspecified (principal); F17.210 Nicotine dependence, cigarettes, uncomplicated
CPT/HCPCS: 80053; 83690; 85025; 96374; 99284; J2405

== ENCOUNTER 2024-08-08 10:01 | Emergency (ER) | payer MEDICARE, SELFPAY ==
[2024-08-08 10:03] VITALS: BP 132/72; PULSE 74; RESP 17; TEMP 36.9; O2SAT 99
--- NOTE | 2024-08-08 10:25 | W.ED.ANXIETY ---
HPI - Anxiety General: Chief Complaint: Anxiety Stated Complaint: anxiety Time Seen by Provider: 08/08/24 10:04 History of Present Illness: Patient presents complaining of anxiety. He states he has chronic anxiety. He states he does not have any medication at home for his anxiety. No suicidal thoughts. He states he gets always an anxious feeling in the pit of his stomach. No chest pain. No abdominal pain. No vomiting. No trouble breathing. He states he has whole body pain and it hurts everywhere and that is chronic. He denies any fall or injury. Denies any drug use or alcohol use. Denies any vomiting or diarrhea or black or bloody stools. Denies any dysuria. He states that he started feeling an anxious feeling like he is underwater and that he states this is what he always comes to the hospital for. He states nothing is new. He states he has been having this issue for years. He states he came here to get something for the anxiety. He states he had normal bowel movement this morning Associated symptoms: Deny chest pain, headache(s), syncope or vomiting Related Data Home Medications ?Medication ?Instructions ?Recorded ?Confirmed ergocalciferol (vitamin D2) 1,250 1,250 mcg PO Q7D 01/05/24 08/08/24 mcg (50,000 unit) capsule (Vitamin D2) pantoprazole 40 mg tablet,delayed 40 mg PO DAILY 01/05/24 08/08/24 release prazosin 2 mg capsule 2 mg PO BEDTIME 03/25/24 08/08/24 buspirone 10 mg tablet See Rx Instructions .Route .COMPLEX 05/10/24 08/08/24 eszopiclone 3 mg tablet 3 mg PO BEDTIME 05/10/24 08/08/24 lorazepam 0.5 mg tablet 0.5 mg PO .EVERY 24 HOURS 05/10/24 08/08/24 trazodone 100 mg tablet 100 mg PO BEDTIME 05/10/24 08/08/24 hydroxyzine pamoate 25 mg capsule 25 mg PO QID PRN Anxiety 08/08/24 08/08/24 Previous Rx's ?Medication ?Instructions ?Recorded quetiapine 25 mg tablet 50 mg (2 x 25 mg) PO BEDTIME 30 04/02/24 days #60 tabs venlafaxine 150 mg 150 mg PO QAM 30 days #30 caps 04/02/24 capsule,extended release 24 hr Allergies Allergy/AdvReac Type Severity Reaction Status Date / Time cephalexin Allergy Unknown Verified 07/16/24 15:37 Review of Systems Card: Denies: chest pain, irregular heart rhythm, edema, lightheadedness, syncope, pre-syncope, dyspnea on exertion or orthopnea GI: Denies: vomiting, heartburn, change in bowel habits, change in stool character, hematochezia or melena Neuro: Denies: headache(s) or weakness in extremities PFSH ED PFSH: Medical History History of flail chest Family History Father Cancer Social History Smoking and tobacco/nicotine status: current every day tobacco/nicotine user cigarettes Packs smoked per day: 0.24 Alcohol intake: never Substance/Drug Use: never Physical Exam Const: COMMON NORMALS: no acute distress, patient oriented x3 and alert EXAM LIMITATIONS: other limitations (Hard of hearing, anxiety); no altered mental status GENERAL APPEARANCE: cooperative, comfortable, well kempt and anxious; not combative, not disheveled, not ill appearing, not diaphoretic, not well hydrated and no odor of alcohol detected ORIENTATION/CONSCIOUSNESS: Yes awake, Yes oriented to person, Yes oriented to place and Yes oriented to time HENMT: COMMON NORMALS: normocephalic and atraumatic HEAD & SCALP: normal to inspection, normocephalic and atraumatic FACE & SINUS: normal facial exam MOUTH: tongue normal Eye: COMMON NORMALS: Equal, round and reactive pupils present, EOMs intact bilaterally and conjunctivae normal GENERAL EYE: appearance normal, both eyes and all related structures CONJUNCTIVA: Yes conjunctivae normal PUPIL: Yes Equal, round and reactive pupils present Neck/C-Spine: COMMON NORMALS: full ROM and no JVD GENERAL: Yes normal visual inspection Resp: COMMON NORMALS: normal respiratory effort, No use of accessory muscles and clear to auscultation bilaterally EFFORT & INSPECTION: Yes able to speak in complete sentences AUSCULTATION: clear to auscultation bilaterally Cardio: COMMON NORMALS: no JVD, regular rate and regular rhythm RATE: regular rate RHYTHM: regular rhythm GI: COMMON NORMALS: Soft to palpation, non-tender, No hepatosplenomegaly present and no masses INSPECTION: No abdominal distension PALPATION: Yes Soft to palpation and Yes No hepatosplenomegaly present : COMMON NORMALS: Yes no CVA tenderness BLADDER/KIDNEY EXAM: Yes no CVA tenderness Back/Pelvis: COMMON NORMALS: no CVA tenderness Extremity: COMMON NORMALS: normal to inspection and no pedal edema Neuro: COMMON NORMALS: patient oriented x3 SENSORIUM/ORIENTATION: Yes alert, Yes oriented to person, Yes oriented to place and Yes oriented to time SPEECH: speech normal MOTOR EXAM: Pronator motor function not present and Motor abnormalities not present Psych: COMMON NORMALS: speech normal APPEARANCE: Yes well kempt ATTITUDE: No Withdrawn affect present and No aggressive ACTIVITY/MOTOR BEHAVIOR: Yes appropriate eye contact SPEECH: Yes normal speech THOUGHT PROCESS: no other THOUGHT CONTENT: No Suicidality present, No delusions and No Hallucination(s) present MEMORY/COGNITION: Yes memory grossly intact Skin: COMMON NORMALS: no rashes or lesions noted GENERAL SKIN EXAM: no rashes or lesions noted Course Vital Signs: Vital signs: Vital Signs Temperature 98.4 F 08/08/24 10:03 Pulse Rate 76 08/08/24 11:46 Respiratory Rate 17 08/08/24 10:03 Blood Pressure 128/73 08/08/24 11:46 Pulse Oximetry 100 08/08/24 11:46 Oxygen Delivery Me thod Room Air 08/08/24 10:03 MDM - Anxiety Medical Decision Making Patient presents complaining of anxiety. He presents by EMS who states patient well-known to them. They state that there is no suicidal ideation. They state that he has a safe home environment. They state that they are called on a frequent basis for the same complaints. The patient tells me he is here because of anxiety. He states he has chronic anxiety. The patient is hard of hearing however he is able to tell me the day and the month and the year. He can tell me why he is here. He is a very poor historian and cannot tell me what medications he is on and his anxiety limits his history. He does focus on his anxiety. He denies any abdominal pain but states that he feels like he holds water in his stomach when he feels anxious. He states it is that anxious feeling that he gets all the time. He states he hurts all over but states that is chronic. On review of the record patient reportedly has some memory issues reported by family on prior visits however here the patient is alert and oriented. Patient has had multiple presentations with anxiety. He has had complaints of abdominal pain at times. Patient denies any new pain or new symptoms to me other than just his anxiety. I have asked pharmacy to evaluate his medications to see if he is taking his PPI therapy. I ordered 40 mg of Protonix p.o. here. Patient is on psychiatric medications and reportedly is poorly compliant. I do not find any emergent medical or psychiatric condition. Patient reportedly was recently at [facility] for psychiatric evaluation and was not found to be suicidal or have indication for admission. Patient here shows ability to reason and medical screening evaluation is complete. He is not having symptoms to suggest referred cardiac etiology or bowel obstruction or emergent intra-abdominal process. His abdomen soft nontender. He denies any chest pain or chest discomfort. Plan to discharge home with continued outpatient management. Patient became more anxious again. Patient given 1 mg Ativan p.o. Patient feeling improved. Will discharge home as per plan. Medical Records I have reviewed multiple prior emergency department visits No radiology studies performed this visit Discharge Plan Discharge Patient Disposition: Home Clinical Impression: Anxiety Condition: Stable Prescriptions: No Action pantoprazole 40 mg tablet,delayed release (DR/EC) 40 mg PO DAILY ergocalciferol (vitamin D2) [Vitamin D2] 1,250 mcg (50,000 unit) capsule 1,250 mcg PO Q7D lorazepam 0.5 mg tablet 0.5 mg PO .EVERY 24 HOURS trazodone 100 mg tablet 100 mg PO BEDTIME eszopiclone 3 mg tablet 3 mg PO BEDTIME buspirone 10 mg tablet See Rx Instructions .ROUTE .COMPLEX Rx Instructions: Take 2 tablets by mouth in the morning and evening and take 1 tablet mid-day. prazosin 2 mg capsule 2 mg PO BEDTIME quetiapine 25 mg Tablet 50 mg PO BEDTIME 30 Days Qty: 60 1RF venlafaxine 150 mg capsule,extended release 24hr 150 mg PO QAM 30 Days Qty: 30 1RF hydroxyzine pamoate 25 mg capsule 25 mg PO QID PRN (Reason: Anxiety) Discharge Orders: Discharge ED (Routine); Ordered 08/08/24 Ordered By: Buster Choi Referrals: Sherard,Vannessa [Primary Care Provider] - Activity Restrictions/Additional Instructions: Follow-up with your doctor this week for further evaluation and care. Please review your medications with your doctor. Please come back if you develop fever, vomiting, new or changing conditions such as new pain or any new concerns. Please come back if you do not feel safe. Print Language: Burkinan Coding Level of Care Code ED Design Painter for Amelia Lyman
[2024-08-08] MEDS: pantoprazole DR 40 mg Tablet PO (10:37)
--- NOTE | 2024-08-08 10:53 | PC.PHAR ---
Pt is always unsure of his medications. Last med rec completed with rx bottles. New med rec completed with last fill dates and day supply. Pt concerned about being out of alot of his medications and new lower dosage of some of them.
[2024-08-08] MEDS: LORazepam 1 mg Tablet PO (11:08)
--- NOTE | 2024-08-08 11:21 | PC.NURSE ---
PT UPSET WITH BEING DISCHARGED FROM THE ED. PT DEMANDING TO BE ADMITTED. PT STATES THE MEDICATION I HAVE AT HOME IS NOT WORKING. I NEED TO STAY HERE TO GET MORE MEDICATION. PT BECOMING MORE UPSET. SECURITY CALLED. PHYSICIAN NOTIFIED THAT PT WAS UPSET AND REQUESTED MEDICATION. AFTER DISCUSSING WITH PT, PHYSICIAN ORDERED ANXIETY MEDICATION. MEDICATION GIVEN, SECURITY AT BEDSIDE. PT STILL UPSET ABOUT BEING DISCHARGED. PT EDUCATED ON THE PURPOSE OF AN EMERGENCY DEPARTMENT AND HOW HE NEEDED TO FOLLOW UP WITH A PSYCHIATRIST TO HELP HIM WITH HIS MEDICATION. PT STILL VERBALIZES BEING UPSET WITH THE DISCHARGE AND STATES I GOT A NERVOUS STOMACH. I CAN'T EAT. THE 150MG MEDICATION I AM ON IS NOT ENOUGH. THIS NURSE VERBALIZED UNDERSTANDING. THIS NURSE CONTINUED TO EDUCATE PT THAT WE GAVE HIM A DOSE OF ANXIETY MEDICATION TODAY, AND HE NEEDED TO FOLLOW UP WITH HIS REGULAR DOCTOR AND PSYCHIATRIST TO CONTINUE ADJUSTING HIS MEDICATION. PT STATED I AM NOT GOING TO A PSYCHIATRIST. I DON'T HAVE DEMENTIA. I HAVE ANXIETY. PT EDUCATED AGAIN ON HOW A PSYCHIATRIST CAN HELP HIS ANXIETY. PT STILL VERY UPSET. THIS NURSE ASKED PT IF THERE WAS ANYONE TO CALL TO TALK ABOUT WHAT IS GOING ON WITH PT TO HELP. PT INFORMED THIS NURSE SHE COULD CALL HIS SON. THIS NURSE SPOKE TO ANJANA, PT SON, ON THE PHONE AND EDUCATED ON THE NEED FOR PT TO BE EVALUATED BY A PRIMARY CARE DOCTOR AND A PSYCHIATRIST. PT SON VERBALIZED UNDERSTANDING AND INFORMED THIS NURSE THAT PT HAS REFUSED TO SEE A PSYCHIATRIST. PT SON ALSO INFORMED THIS NURSE THE RECENT STRUGGLE WITH THE SON AND PT AND HOW PT IS REFUSING TO GET THE HELP HE NEEDED. THIS NURSE EDUCATED PT SON ON DIFFERENT RESOURCES AVAILABLE FOR TO GET THE PT HELP. 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 PT EDUCATED ON THIS NURSE SPEAKING WITH ANJANA AND HOW HE WAS GOING TO HELP PT GET TO THE APPOINTMENTS HE NEEDED TO. PT STILL UPSET BUT STATES JUST LET ME GO HOME. THIS NURSE GAVE PT HIS DISCHARGE PACKET AND EDUCATED PT AGAIN ON THE NECESSARY FOLLOW-UP APPOINTMENTS. PT SIGNED DISCHARGE PAPERS. PT WAS ESCORTED OUT OF ED BY SECURITY TO THE WAITING ROOM TO WAIT FOR HIS SON.
[2024-08-08 11:46] VITALS: BP 128/73; PULSE 76; O2SAT 100
== END 2024-08-08 11:47 | disposition home or self-care (01) ==
PROVIDERS: Emergency Provider Emergency Medicine; PCP Internal Medicine
DX: F41.9 Anxiety disorder, unspecified (principal); F17.210 Nicotine dependence, cigarettes, uncomplicated
CPT/HCPCS: 12345; 99283

== ENCOUNTER 2024-08-22 14:45 | Emergency (ER) | payer MEDICARE, SELFPAY ==
[2024-08-22 15:02] VITALS: PULSE 61; RESP 18; TEMP 36.6; O2SAT 99
--- NOTE | 2024-08-22 16:00 | ECG_ITS ---
[facility] [place] [facility] Date: 2024-08-22 Pat Name: Juan Jose Colvin Department: Room: Gender: Male Drum Filler: : 1960 Requested By: Mariano Conway Order Number: [id number] Valencia MD: Matt Juan M.D. Measurements Intervals [place] Rate: 58 P: 69 TX: 186 QRS: 25 QRSD: 113 T: 56 QT: 400 QTc: 394 Interpretive Statements SINUS BRADYCARDIA MODERATE INTRAVENTRICULAR CONDUCTION DELAY [110+ ms QRS DURATION] NONSPECIFIC ST & T-WAVE ABNORMALITY Compared to ECG 05/12/2024 17:04:55 Sinus rhythm no longer present Short TX interval no longer present T-wave abnormality still present Electronically Signed On 08-22-2024 17:19:07 BUSINESS OBJECTS ANALYST by Matt Juan M.D. [email or web address]
--- NOTE | 2024-08-22 16:00 | W.ED.ANXIETY ---
HPI - Anxiety General: Chief Complaint: Anxiety Stated Complaint: anxiety Time Seen by Provider: 08/22/24 15:08 Source: patient Mode of arrival: ambulatory Limitations: no limitations History of Present Illness: 64-year-old male who is very well-known to the ER has a long history anxiety states he feels anxious today feels like he has something caught in his throat. He has been seen here multiple times for anxiety states he does have a psychiatrist appointment tomorrow denies any fevers or shortness of breath Associated symptoms: Deny chest pain, chills, fever(s), headache(s), nausea or vomiting Related Data Home Medications ?Medication ?Instructions ?Recorded ?Confirmed ergocalciferol (vitamin D2) 1,250 1,250 mcg PO Q7D 01/05/24 08/22/24 mcg (50,000 unit) capsule (Vitamin D2) pantoprazole 40 mg tablet,delayed 40 mg PO DAILY 01/05/24 08/22/24 release prazosin 2 mg capsule 2 mg PO BEDTIME 03/25/24 08/22/24 hydroxyzine pamoate 25 mg capsule 25 mg PO QID PRN Anxiety 08/08/24 08/22/24 buspirone 15 mg tablet 15 mg PO TID 08/22/24 08/22/24 quetiapine 25 mg tablet 25 mg PO BEDTIME 08/22/24 08/22/24 sertraline 25 mg tablet 25 mg PO DAILY 08/22/24 08/22/24 Previous Rx's ?Medication ?Instructions ?Recorded venlafaxine 150 mg 150 mg PO QAM 30 days #30 caps 04/02/24 capsule,extended release 24 hr Allergies Allergy/AdvReac Type Severity Reaction Status Date / Time cephalexin Allergy Unknown Verified 07/16/24 15:37 Review of Systems Const: Denies: fever(s), chills, body aches or change in appetite ENMT: Denies: throat pain or dental pain Card: Denies: chest pain Resp: Denies: dyspnea GI: Denies: abdominal pain, nausea, vomiting or diarrhea Musc: Denies: neck pain or back pain Skin/Breast: Denies: rash Neuro: Denies: headache(s) Psych: Reports: anxiety; Denies: suicidal ideation PFSH ED PFSH: Medical History History of flail chest Family History Father Cancer Social History Smoking and tobacco/nicotine status: current every day tobacco/nicotine user cigarettes Packs smoked per day: 0.24 Alcohol intake: never Substance/Drug Use: never Physical Exam Const: COMMON NORMALS: no acute distress, patient oriented x3 and healthy appearing HENMT: COMMON NORMALS: normocephalic and atraumatic HEAD & SCALP: normocephalic and atraumatic Eye: COMMON NORMALS: Equal, round and reactive pupils present and EOMs intact bilaterally PUPIL: Yes Equal, round and reactive pupils present Neck/C-Spine: COMMON NORMALS: full ROM and supple Chest: COMMONS NORMALS: normal inspection of the chest and normal palpation of entire chest wall Resp: COMMON NORMALS: normal respiratory effort, No retractions, No use of accessory muscles and clear to auscultation bilaterally AUSCULTATION: clear to auscultation bilaterally Cardio: COMMON NORMALS: regular rate, regular rhythm and No murmurs present (Cardio) RATE: regular rate RHYTHM: regular rhythm GI: COMMON NORMALS: Normal to inspection, nondistended, normoactive bowel sounds present, Soft to palpation, non-tender and no masses PALPATION: Yes Soft to palpation Extremity: COMMON NORMALS: normal to inspection and full ROM Neuro: COMMON NORMALS: patient oriented x3, moves all extremities and no focal motor deficits Psych: COMMON NORMALS: mental status grossly normal, Normal thought process present and cooperative THOUGHT PROCESS: Normal thought process present Skin: COMMON NORMALS: no rashes or lesions noted and no wounds GENERAL SKIN EXAM: no rashes or lesions noted Course Vital Signs: Vital signs: Vital Signs Temperature 97.8 F 08/22/24 15:02 Pulse Rate 61 08/22/24 15:02 Respiratory Rate 18 08/22/24 15:02 Pulse Oximetry 99 08/22/24 15:02 Oxygen Delivery Me thod Room Air 08/22/24 15:02 MDM - Anxiety Medical Decision Making Patient presents here with anxiety he is well-appearing here he feels improved after Ativan he is stable for discharge follow-up PCP return if worsening. Medical Records I reviewed the patient's medical records. No radiology studies performed this visit EKG Data EKG 1: I personally reviewed and interpreted this EKG as follows: EKG interpretation date: 08/22/24 EKG interpretation time: 16:03 Interpretation: sinus chang hr [address] elevation qrs 113 qtc 396 Discharge Plan Discharge Patient Disposition: Home Clinical Impression: Acute anxiety Condition: Stable Prescriptions: No Action pantoprazole 40 mg tablet,delayed release (DR/EC) 40 mg PO DAILY ergocalciferol (vitamin D2) [Vitamin D2] 1,250 mcg (50,000 unit) capsule 1,250 mcg PO Q7D sertraline 25 mg tablet 25 mg PO DAILY buspirone 15 mg tablet 15 mg PO TID quetiapine 25 mg tablet 25 mg PO BEDTIME prazosin 2 mg capsule 2 mg PO BEDTIME venlafaxine 150 mg capsule,extended release 24hr 150 mg PO QAM 30 Days Qty: 30 1RF hydroxyzine pamoate 25 mg capsule 25 mg PO QID PRN (Reason: Anxiety) Discharge Orders: Discharge ED (Routine); Ordered 08/22/24 Ordered By: Mariano Conway Referrals: Vannessa Jauregui [Primary Care Provider] - Discharge Diet: Advance as tolerated Discharge Activity: Resume usual activity Patient Instructions: Anxiety (ED) Print Language: Yoruba Coding Level of Care Code ED Guide Excursion for Amelia Lyman
[2024-08-22] MEDS: LORazepam 1 mg Tablet PO (16:15)
[2024-08-22 16:29] VITALS: BP 109/58; PULSE 58; O2SAT 97
== END 2024-08-22 16:31 | disposition home or self-care (01) ==
PROVIDERS: Emergency Provider Emergency Medicine; PCP Internal Medicine
DX: F41.8 Other specified anxiety disorders (principal); F17.210 Nicotine dependence, cigarettes, uncomplicated
CPT/HCPCS: 93005; 99283

== ENCOUNTER 2024-11-04 13:02 | Inpatient (IN) | payer MEDICARE, SELFPAY ==
[2024-11-04 13:06] VITALS: BP 113/59; PULSE 77; RESP 17; TEMP 36.8; O2SAT 97; BMI 26.7
--- NOTE | 2024-11-04 13:32 | PC.NURSE ---
Pt is now reporting to provider SI and requesting psychiatric unit placement
--- NOTE | 2024-11-04 13:34 | XRR_ITS ---
PROCEDURE INFORMATION: Exam: XR Chest Exam date and time: 11/04/2024 1:46 PM Age: 64 years old Clinical indication: Other: Edema TECHNIQUE: Imaging protocol: Radiologic exam of the chest. Views: 1 view. COMPARISON: CR XR chest 1V portable [id number] 04/11/2024 12:01 PM FINDINGS: Tubes, catheters and devices: None. Lungs: Pleural and lung parenchymal linear scarring identified within the left chest. Left-sided pulmonary linear interstitial opacities identified within lower lung. The lungs appear otherwise clear. Pleural spaces: See Lungs finding. Heart/Mediastinum: Mediastinum and myla appear unremarkable. Vasculature: Tortuous and ectatic aorta is demonstrated. [id number] atherosclerotic calcification demonstrated within the aorta. Bones/joints: Multilevel metallic hardware plate and screws throughout the left thoracic ribcage appears stable. Diffusely decreased bone density. Generalized bony degenerative changes. Moderate to severe degenerative disc disease in the spine. Old healed bilateral clavicle fractures. Old healed left rib fractures are demonstrated. XR/XR chest 1V portable [id number] IMPRESSION: 1. Left-sided pleuroparenchymal scarring. 2. Pulmonary atelectasis or acute infiltrates within left lower chest. 3. Chronic findings. Degenerative and postsurgical changes are demonstrated, as described above.
--- NOTE | 2024-11-04 13:37 | ED_ITS ---
HPI - Anxiety 2 General: Chief Complaint: Anxiety Stated Complaint: Anxiety Time Seen by Provider: 11/04/24 13:14 History of Present Illness: Patient is a 64-year-old smoker gentleman with longstanding history of anxiety, depression that reports to emergency room with his legs going out from him due to anxiety. He states that he has had increased anxiety despite visiting his primary care physician. He did take a medication that he states was 1000 mg, that is not working. Nurse called patient's daughter and unsure of what medication he is talking about. Patient has MiraLAX for a bowel prep next week. Patient does admit to suicidal thoughts, ideas, without a plan. He would like to go to a psychiatric facility for help. He does admits to lower extremity edema without shortness of breath. Associated symptoms: Reports nausea; Deny chest pain, palpitations or vomiting Related Data Home Medications ?Medication ?Instructions ?Recorded ?Confirmed divalproex 500 mg tablet,extended 1,000 mg PO BEDTIME 11/04/24 11/04/24 release 24 hr mirtazapine 15 mg tablet 15 mg PO DAILY 11/04/2410/21 quetiapine 100 mg tablet 200 mg PO BEDTIME insomnia 0 11/04/24 11/04/24 Allergies Allergy/AdvReac Type Severity Reaction Status Date / Time cephalexin Allergy Unknown Verified 07/16/24 15:37 Review of Systems 2 General: Reports: 10 or more systems reviewed and unremarkable except in HPI and below Card: Denies: chest pain or palpitations Resp: Denies: dyspnea or productive cough GI: Reports: nausea and other (Increased appetite); Denies: abdominal pain or vomiting Musc: Reports: joint stiffness Psych: Reports: anxiety, depression and suicidal ideation; Denies: auditory hallucinations PFSH ED 2 PFSH: Medical History History of flail chest Family History Father Cancer Social History Smoking and tobacco/nicotine status: current every day tobacco/nicotine user cigarettes Packs smoked per day: 0.24 Alcohol intake: never Substance/Drug Use: never Physical Exam 2 Const: COMMON NORMALS: patient oriented x3 HENMT: COMMON NORMALS: normocephalic and atraumatic HEAD & SCALP: n ormocephalic and atraumatic Neck/C-Spine: COMMON NORMALS: full ROM, no lymphadenopathy and no JVD Lymph: LYMPHATIC: no lymphadenopathy noted Resp: COMMON NORMALS: normal respiratory effort Cardio: COMMON NORMALS: no JVD, regular rate, S1 normal heart sound present and S2 normal heart sound present RATE: regular rate HEART SOUNDS: S1 normal heart sound present and S2 normal heart sound present GI: COMMON NORMALS: Normal to inspection, nondistended, normoactive bowel sounds present, Soft to palpation and non-tender PALPATION: Yes Soft to palpation : COMMON NORMALS: Yes no CVA tenderness BLADDER/KIDNEY EXAM: Yes no CVA tenderness Back/Pelvis: COMMON NORMALS: no CVA tenderness Extremity: COMMON NORMALS: normal to inspection and full ROM; negative for no pedal edema (+1) Neuro: COMMON NORMALS: patient oriented x3, CN's II-XII intact bilaterally and moves all extremities Psych: COMMON NORMALS: speech normal ACTIVITY/MOTOR BEHAVIOR: Yes appropriate eye contact and Yes restless SPEECH: Yes normal speech Course 2 Reevaluation(s): Reevaluation #1: Doing better after Zyprexa Consultations: Consultation #1: Dr. Rudolph, accepted on psychiatric unit Vital Signs: Vital signs: Vital Signs Temperature 98.3 F 11/04/24 20:25 Pulse Rate 75 11/04/24 20:25 Respiratory Rate 17 11/04/24 20:25 Blood Pressure 112/72 11/04/24 20:25 Pulse Oximetry 95 11/04/24 20:25 Oxygen Delivery Me thod Room Air 11/04/24 20:25 MDM - Anxiety Medical Decision Making Patient is a 64-year-old gentleman that comes ER for anxiety, suicidal ideas, without suicide plan requesting psychiatric care due to his severe anxiety. Patient states his legs feel like they will give out from his anxiety. No injuries, no falls. He states his eating is improved but he cannot get over the anxiety. I discussed with psychiatrist on-call, that has excepted patient in unit after review of his case. Patient was previously there 03/2024 Lab Data 11/04/24 13:47 11/04/24 13:47 Radiology Impressions Chest X-Ray 11/04/24 13:34 IMPRESSION: 1. Left-sided pleuroparenchymal scarring. 2. Pulmonary atelectasis or acute infiltrates within left lower chest. 3. Chronic findings. Degenerative and postsurgical changes are demonstrated, as described above. Laboratory Results WBC 7.32 10^3/uL (3.29-11.43) 11/04/24 13:47 RBC 4.60 10^6/uL (3.85-5.65) 11/04/24 13:47 Hgb 13.90 g/dL (11.27-16.99) 11/04/24 13:47 Hct 42.4 % (37-53) 11/04/24 13:47 MCV 92.2 fl (82-101) 11/04/24 13:47 MCH 30.2 pg (27-33) 11/04/24 13:47 MCHC 32.8 g/dL (30-55) 11/04/24 13:47 RDW 14.6 % (12.1-15.1) 11/04/24 13:47 Plt Count 193 10^3/cmm (157-399) 11/04/24 13:47 MPV 10.1 fL (7.4-10.4) 11/04/24 13:47 Neut % (Auto) 57.4 % 11/04/24 13:47 Lymph % (Auto) 21.6 % 11/04/24 13:47 [place] % (Auto) 13.4 % 11/04/24 13:47 Eos % (Auto) 6.0 % 11/04/24 13:47 Baso % (Auto) 0.8 % 11/04/24 13:47 Neut # (Auto) 4.20 10^3/uL (1.8-7.7) 11/04/24 13:47 Lymph # (Auto) 1.6 10^3/uL (0.8-4.8) 11/04/24 13:47 [place] # (Auto) 1.0 10^3/uL (0.2-0.9) H 11/04/24 13:47 Eos # (Auto) 0.4 10^3/uL (0.0-0.8) 11/04/24 13:47 Baso # (Auto) 0.1 10^3/uL (0.0-0.1) 11/04/24 13:47 Nucleated RBC % (auto) 0 % 11/04/24 13:47 Nucleated RBCs # 0.0 /100WBC 11/04/24 13:47 PT 12.50 SECONDS (12.1-14.9) 11/04/24 13:47 INR 0.88 (0.8-1.2) 11/04/24 13:47 Sodium 142 mmol/L (136-145) 11/04/24 13:47 Potassium 4.7 mmol/L (3.5-5.1) 11/04/24 13:47 Chloride 104 mmol/L (98-107) 11/04/24 13:47 Carbon Dioxide 24 mmol/L (22-29) 11/04/24 13:47 Anion Gap 18.7 (5-19) 11/04/24 13:47 BUN 32 mg/dL (8-23) H 11/04/24 13:47 Creatinine 0.9 mg/dL (0.7-1.2) 11/04/24 13:47 GFR Calculation 84.4 mL/min (90-130) L 11/04/24 13:47 Glucose 84 mg/dL (65-115) 11/04/24 13:47 Calculated Osmolality 300 mOsm/kg (285-295) H 11/04/24 13:47 Calcium 9.1 mg/dL (8.5-10.5) 11/04/24 13:47 Total Bilirubin 0.3 mg/dL (0.15-1.2) 11/04/24 13:47 AST 18 U/L (0-40) 11/04/24 13:47 ALT 33 U/L (0-41) 11/04/24 13:47 Alkaline Phosphatase 71 U/L (40-130) 11/04/24 13:47 NT-Pro-B Natriuret Pep 46 pg/mL (0-125) 11/04/24 13:47 Total Protein 7.3 g/dL (6.6-8.7) 11/04/24 13:47 Albumin 4.2 g/dL (3.5-5.2) 11/04/24 13:47 Globulin 3.1 g/dL (1.3-4.6) 11/04/24 13:47 TSH 1.72 uIU/mL (0.27-4.20) 11/04/24 13:47 Urine Color Yellow (Yellow) 11/04/24 13:45 Urine Appearance Clear (CLEAR) 11/04/24 13:45 Urine pH 6.5 (5-7) 11/04/24 13:45 Ur Specific [place] 1.028 (1.005-1.030) 11/04/24 13:45 Urine Protein Negative (Negative) 11/04/24 13:45 Urine Glucose (UA) Negative (Normal) 11/04/24 13:45 Urine Ketones Negative (Negative) 11/04/24 13:45 Urine Blood Negative (Negative) 11/04/24 13:45 Urine Nitrate Negative (Negative) 11/04/24 13:45 Urine Bilirubin Negative (Negative) 11/04/24 13:45 Urine Urobilinogen 1.0 mg/dL (Negative) 11/04/24 13:45 Ur Leukocyte Esterase Negative (Negative) 11/04/24 13:45 Urine RBC 0-2 /hpf (0-2) 11/04/24 13:45 Urine WBC 0-5 /hpf (0-5) 11/04/24 13:45 Ur Squamous Epith Cells 0-5 /hpf (0-5) 11/04/24 13:45 Amorphous Sediment Not Reportable 11/04/24 13:45 Urine Bacteria None seen /hpf (NONE) 11/04/24 13:45 Hyaline Casts 0-4 /lpf H 11/04/24 13:45 Salicylates < 0.3 mg/dL (3-10) L 11/04/24 13:47 Urine Opiates Screen Negative ng/mL (Negative) 11/04/24 13:45 Acetaminophen < 5.0 ug/mL (10-30) L 11/04/24 13:47 Ur Barbiturates Screen Negative ng/mL (Negative) 11/04/24 13:45 Ur Phencyclidine Scrn Negative ng/mL (Negative) 11/04/24 13:45 Ur Amphetamines Screen Negative ng/mL (Negative) 11/04/24 13:45 U Benzodiazepines Scrn Negative ng/mL (Negative) 11/04/24 13:45 Urine Cocaine Screen Negative ng/mL (Negative) 11/04/24 13:45 U Marijuana (THC) Screen Negative ng/mL (Negative) 11/04/24 13:45 Ethyl Alcohol < 10 mg/dL (0-10) 11/04/24 13:47 All radiology interpretation(s) finalized by discharge ED provider radiology interpretation(s): no acute findings EKG Data EKG 1: Interpretation: Chest X-Ray 11/04/24 13:34 IMPRESSION: 1. Left-sided pleuroparenchymal scarring. 2. Pulmonary atelectasis or acute infiltrates within left lower chest. 3. Chronic findings. Degenerative and postsurgical changes are demonstrated, as described above. left axis, q waves avL, I, inverted t v6, no ST elevation Computer generated interpretation: Sinus rhythm, borderline left axis deviation, nonspecific ST and T wave abnormality, borderline EKG Other EKG comments: Chest X-Ray 11/04/24 13:34 IMPRESSION: 1. Left-sided pleuroparenchymal scarring. 2. Pulmonary atelectasis or acute infiltrates within left lower chest. 3. Chronic findings. Degenerative and postsurgical changes are demonstrated, as described above. Discharge Plan Discharge Patient Disposition: Admitted As Inpatient Admit Provider: Mason Rudolph Clinical Impression: Suicidal ideation, Anxiety Condition: Stable Coding Level of Care Code ED Turning Lathe Tender for Amelia Lyman
[2024-11-04 13:54] LABS: Basophils # 0.1 10^3/uL (0.0-0.1); Basophils % 0.8 %; Eosinophils # 0.4 10^3/uL (0.0-0.8); Hematocrit 42.4 % (37-53); Lymphocytes # 1.6 10^3/uL (0.8-4.8); Lymphocytes % 21.6 %; Mean Corpuscular HGB Conc 32.8 g/dL (30-55); Mean Corpuscular Hemoglobin 30.2 pg (27-33); Mean Corpuscular Volume 92.2 fl (82-101); Mean Platelet Volume 10.1 fL (7.4-10.4); Monocytes % 13.4 %; Neutrophils % 57.4 %; Nucleated Red Blood Cells % 0 %; Platelet Count 193 10^3/cmm (157-399); Red Cell Distribution Width 14.6 % (12.1-15.1); White Blood Count 7.32 10^3/uL (3.29-11.43)
[2024-11-04] MEDS: nicotine 14 mg Patch 1 PATCH TRANSDERMA (13:59)
[2024-11-04] MEDS: OLANZapine 5 mg ODT PO (13:59)
--- NOTE | 2024-11-04 14:02 | ECG_ITS ---
[employer] Test Date: 2024-11-04 Pat Name: Juan Jose Colvin Department: Room: Gender: Male Taste Tester: : 1960 Requested By: Carmen Llanos Order Number: [id number] Reading MD: JOSE MAYORGA Measurements Intervals Mullen Rate: 71 P: 18 CO: 120 QRS: -30 QRSD: 102 T: 65 QT: 353 QTc: 386 Interpretive Statements SINUS RHYTHM BORDERLINE LEFT AXIS DEVIATION [QRS AXIS < -20] NONSPECIFIC ST & T-WAVE ABNORMALITY Compared to ECG 08/22/2024 16:03:10 Sinus bradycardia no longer present Intraventricular conduction delay no longer present T-wave abnormality still present Electronically Signed On 11-04-2024 23:27:30 CDT by JOSE MAYORGA [email or web address]
[2024-11-04 14:03] LABS: Bacteria Urine None Seen /hpf; Hyaline Casts Urine 0-4 /lpf; RBC Urine 0-2 /hpf (0-2); Squamous Epithelial Cell Urine 0-5 /hpf (0-5); WBC Urine 0-5 /hpf (0-5)
[2024-11-04 14:11] LABS: Add Urine Microscopic? YES; Bilirubin Urine Negative (Negative); Blood Urine Negative (Negative); Glucose Urine UA Negative (Normal); Ketones Urine Negative (Negative); Leukocyte Esterase Urine Negative (Negative); Nitrate Urine Negative (Negative); Protein Urine Negative (Negative); Specific Gravity, Urine 1.028 (1.005-1.030); Urine Appearance Clear (CLEAR); Urine Color Yellow (Yellow); pH Urine 6.5 (5-7)
--- NOTE | 2024-11-04 14:12 | PC.PHAR ---
Charline (daughter) states pt only takes 3 medications. Removed from chart are the following: Buspirone 15mg, Vitamin d2 50,000 units, Hydroxyzine pamoate 25mg, Pantoprazole 40mg, Prazosin 2mg, Sertraline 25mg, and Venlafaxine 150mg.
[2024-11-04 14:14] LABS: INR 0.88 (0.8-1.2)
[2024-11-04 14:26] LABS: Alanine Aminotransferase 33 U/L (0-41); Albumin Level 4.2 g/dL (3.5-5.2); Alkaline Phosphatase 71 U/L (40-130); Anion Gap 18.7 (5-19); Aspartate Amino Transferase 18 U/L (0-40); Blood Urea Nitrogen 32 mg/dL (8-23); Calcium 9.1 mg/dL (8.5-10.5); Carbon Dioxide 24 mmol/L (22-29); Chloride 104 mmol/L (98-107); Creatinine Clr Calc Pharmacy 105.0572; Globulin 3.1 g/dL (1.3-4.6); Glomerular Filtration Rate 84.4 mL/min (90-130); Glucose 84 mg/dL (65-115); NT Pro B Type Natriuretic Pept 46 pg/mL (0-125); Osmolality Calculated 300 mOsm/kg (285-295); Potassium 4.7 mmol/L (3.5-5.1); Sodium 142 mmol/L (136-145); Thyroid Stimulating Hormone 1.72 uIU/mL (0.27-4.20); Total Bilirubin 0.3 mg/dL (0.15-1.2); Total Protein 7.3 g/dL (6.6-8.7)
[2024-11-04 14:28] LABS: Acetaminophen < 5.0 ug/mL (10-30); Alcohol Level < 10 mg/dL (0-10); Salicylate < 0.3 mg/dL (3-10)
[2024-11-04 14:35] LABS: Amphetamines Screen Urine Negative (Negative); Barbiturates Screen Urine Negative (Negative); Benzodiazepines Screen Urine Negative (Negative); Cocaine Screen Urine Negative (Negative); Opiate Screen Urine Negative (Negative); PCP Screen Urine Negative (Negative); THC Screen Urine Negative (Negative)
[2024-11-04 15:30] VITALS: O2SAT 99
[2024-11-04 16:54] VITALS: BP 128/62; PULSE 81; O2SAT 98
[2024-11-04 17:45] VITALS: BP 122/67; PULSE 67; RESP 16; TEMP 36.7; O2SAT 97
--- NOTE | 2024-11-04 18:13 | PC.NURSE ---
64 y/o male who presented to ER with c/o anxiety. Per RN handoff patient stated he was going to go home to kill self when physician was going to discharge him and not given him ativan. Patient is A&Ox3. Affect bewildered. Speech is clear. Patient with severe TANGIRNAQ. He has remote history of admission to [facility] unit and see's unknown providers at [facility] in [place], [place]. Patient is and lives in [place] with who has advanced dementia. Patient endorses high anxiety and states that 500 wasn't big enough regarding unknown medication. States :I'm a candidate for good medicine . Patient endorses anxiety and mild dementia. He denies SI/HI/AVH and previous SA. He reports that he was unable to get his primary physician to prescribe trazadone so hes been taking his wifes trazadone. Patient oriented to unit norms. All questions answered.
--- NOTE | 2024-11-04 18:32 | PC.NURSE ---
Reconciled medication list with patient. He reports not taking Reglan. Patient states that he is receiving his medication every night. Patient reports that his grandson brings him his medication every night and that 1000 mg isn't enough and that he is taking his medication as prescribed.
[2024-11-04 20:25] VITALS: BP 112/72; PULSE 75; RESP 17; TEMP 36.8; O2SAT 95
[2024-11-04] MEDS: quetiapine 100 mg Tablet 300 MG PO (21:22)
[2024-11-04 22:00] LABS: Valproic Acid Level 27.7 ug/mL (50-100)
[2024-11-05 06:00] VITALS: BP 124/75; PULSE 79; RESP 18; TEMP 36.3; O2SAT 98
[2024-11-05] MEDS: divalproex ER 500 mg Tablet (24H) 1500 MG PO (08:18)
[2024-11-05 14:00] VITALS: BP 113/65; PULSE 71; RESP 18; TEMP 36.6; O2SAT 93
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
[2024-11-05] MEDS: quetiapine 100 mg Tablet 300 MG PO (20:19)
[2024-11-05] MEDS: mirtazapine 15 mg Tablet PO (20:19)
[2024-11-05] MEDS: hyDROXYzine 25 mg Capsule 50 MG PO (20:19)
[2024-11-05] MEDS: trazodone 50 mg Tablet PO (20:19)
[2024-11-05 21:51] VITALS: BP 110/66; PULSE 70; RESP 18; TEMP 36.8; O2SAT 98
[2024-11-06 06:00] VITALS: BP 102/60; PULSE 66; RESP 17; O2SAT 95
[2024-11-06] MEDS: divalproex ER 500 mg Tablet (24H) 1500 MG PO (09:00)
[2024-11-06 10:10] VITALS: BP 110/66; PULSE 70; RESP 18; TEMP 36.8; O2SAT 98
[2024-11-06 14:00] VITALS: BP 100/64; PULSE 75; RESP 16; TEMP 36.8; O2SAT 98
[2024-11-06] MEDS: mirtazapine 15 mg Tablet PO (20:34)
[2024-11-06] MEDS: quetiapine 100 mg Tablet 300 MG PO (20:34)
[2024-11-06] MEDS: trazodone 50 mg Tablet PO (20:34)
[2024-11-06] MEDS: hyDROXYzine 25 mg Capsule 50 MG PO (20:34)
[2024-11-06 21:11] VITALS: BP 117/73; PULSE 82; RESP 18; TEMP 36.9; O2SAT 95; BMI 27.1
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
[2024-11-07 06:00] VITALS: RESP 16
[2024-11-07] MEDS: divalproex ER 500 mg Tablet (24H) 1500 MG PO (08:39)
[2024-11-07 14:00] VITALS: BP 116/64; PULSE 70; RESP 16; TEMP 36.7; O2SAT 99
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
[2024-11-07] MEDS: mirtazapine 15 mg Tablet PO (19:51)
[2024-11-07] MEDS: quetiapine 100 mg Tablet 300 MG PO (19:51)
[2024-11-07] MEDS: hyDROXYzine 25 mg Capsule 50 MG PO (19:51)
[2024-11-07 22:00] VITALS: BP 122/72; PULSE 74; RESP 18; TEMP 36.7; O2SAT 96
[2024-11-08 06:00] VITALS: BP 117/71; PULSE 71; RESP 18; TEMP 36.4; O2SAT 100
[2024-11-08] MEDS: acetaminophen 325 mg Tablet 650 MG PO ×2 (08:06→16:01)
[2024-11-08] MEDS: divalproex ER 500 mg Tablet (24H) 1500 MG PO (08:06)
[2024-11-08] MEDS: hyDROXYzine 25 mg Capsule 50 MG PO (08:07)
[2024-11-08 14:00] VITALS: BP 122/77; PULSE 72; RESP 16; O2SAT 95
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
[2024-11-08] MEDS: mirtazapine 15 mg Tablet PO (20:01)
[2024-11-08] MEDS: quetiapine 100 mg Tablet 300 MG PO (20:01)
[2024-11-08 20:07] VITALS: BP 134/79; PULSE 70; RESP 20; TEMP 36.4; O2SAT 97
[2024-11-09 06:00] VITALS: BP 109/67; PULSE 73; RESP 17; TEMP 36.4; O2SAT 96
[2024-11-09] MEDS: divalproex ER 500 mg Tablet (24H) 1500 MG PO (08:30)
[2024-11-09] MEDS: gabapentin 300 mg Capsule PO ×2 (08:31→17:29)
[2024-11-09 14:00] VITALS: BP 108/67; PULSE 74; RESP 16; O2SAT 96
[2024-11-09] MEDS: acetaminophen 325 mg Tablet 650 MG PO (15:57)
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
[2024-11-09] MEDS: mirtazapine 15 mg Tablet PO (21:28)
[2024-11-09] MEDS: quetiapine 100 mg Tablet 300 MG PO (21:28)
[2024-11-09] MEDS: hyDROXYzine 25 mg Capsule 50 MG PO (21:28)
[2024-11-09 22:00] VITALS: BP 127/68; PULSE 75; RESP 14; TEMP 36.6; O2SAT 97
[2024-11-10 06:00] VITALS: BP 124/69; PULSE 67; RESP 14; TEMP 36.6; O2SAT 98
[2024-11-10] MEDS: gabapentin 300 mg Capsule PO (08:55)
[2024-11-10] MEDS: divalproex ER 500 mg Tablet (24H) 1500 MG PO (08:55)
[2024-11-10 14:00] VITALS: BP 106/72; PULSE 76; RESP 18; O2SAT 94
[2024-11-10] MEDS: acetaminophen 325 mg Tablet 650 MG PO (16:38)
[2024-11-10] MEDS: OLANZapine 5 mg ODT PO (16:48)
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
[2024-11-10 20:59] VITALS: BP 103/58; PULSE 79; RESP 16; TEMP 36.6; O2SAT 96
[2024-11-10] MEDS: hyDROXYzine 25 mg Capsule 50 MG PO (21:38)
[2024-11-10] MEDS: quetiapine 100 mg Tablet 300 MG PO (21:38)
[2024-11-10] MEDS: mirtazapine 15 mg Tablet PO (21:38)
[2024-11-11 06:00] VITALS: BP 130/76; PULSE 93; RESP 18; TEMP 36.3; O2SAT 97
[2024-11-11] MEDS: divalproex ER 500 mg Tablet (24H) 1500 MG PO (07:30)
[2024-11-11] MEDS: gabapentin 300 mg Capsule PO ×2 (07:31→17:24)
[2024-11-11] MEDS: acetaminophen 325 mg Tablet 650 MG PO ×2 (08:44→18:37)
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
[2024-11-11] MEDS: quetiapine 100 mg Tablet 300 MG PO (20:36)
[2024-11-11] MEDS: mirtazapine 15 mg Tablet PO (20:36)
[2024-11-11] MEDS: hyDROXYzine 25 mg Capsule 50 MG PO (20:36)
[2024-11-11 20:38] VITALS: BP 125/78; PULSE 79; RESP 18; TEMP 36.9; O2SAT 95
[2024-11-11] MEDS: gabapentin 400 mg Capsule PO (21:04)
[2024-11-12 06:00] VITALS: BP 123/74; PULSE 86; RESP 16; O2SAT 96
[2024-11-12] MEDS: acetaminophen 325 mg Tablet 650 MG PO (08:46)
[2024-11-12] MEDS: divalproex ER 500 mg Tablet (24H) 1500 MG PO (08:46)
[2024-11-12] MEDS: gabapentin 400 mg Capsule PO ×3 (08:47→20:13)
[2024-11-12 14:00] VITALS: BP 108/64; PULSE 78; RESP 16; TEMP 36.6; O2SAT 96
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
[2024-11-12] MEDS: lidocaine 5% Patch 1 PATCH TOPICAL (15:46)
[2024-11-12] MEDS: mirtazapine 15 mg Tablet PO (20:13)
[2024-11-12] MEDS: trazodone 50 mg Tablet PO (20:13)
[2024-11-12] MEDS: quetiapine 100 mg Tablet 300 MG PO (20:13)
[2024-11-12] MEDS: hyDROXYzine 25 mg Capsule 50 MG PO (20:13)
[2024-11-12 20:24] VITALS: BP 100/66; PULSE 56; RESP 18; TEMP 37.1; O2SAT 95
[2024-11-13 06:00] VITALS: PULSE 60; RESP 16
[2024-11-13] MEDS: gabapentin 400 mg Capsule PO ×3 (09:02→20:07)
[2024-11-13] MEDS: divalproex ER 500 mg Tablet (24H) 1500 MG PO (09:02)
[2024-11-13 14:00] VITALS: BP 136/69; PULSE 77; RESP 18; TEMP 36.4; O2SAT 97
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
[2024-11-13 19:23] VITALS: BP 111/66; PULSE 75; RESP 18; TEMP 37; O2SAT 98
[2024-11-13] MEDS: mirtazapine 15 mg Tablet PO (20:06)
[2024-11-13] MEDS: hyDROXYzine 25 mg Capsule 50 MG PO (20:06)
[2024-11-13] MEDS: trazodone 50 mg Tablet PO (20:06)
[2024-11-13] MEDS: quetiapine 100 mg Tablet 300 MG PO (20:07)
[2024-11-14 06:00] VITALS: BP 122/72; PULSE 70; RESP 16; O2SAT 96
[2024-11-14] MEDS: divalproex ER 500 mg Tablet (24H) 1500 MG PO (08:53)
[2024-11-14] MEDS: gabapentin 300 mg Capsule 600 MG PO ×3 (08:53→20:40)
[2024-11-14] MEDS: lidocaine 5% Patch 1 PATCH TOPICAL (08:57)
[2024-11-14 14:00] VITALS: BP 129/77; PULSE 90; RESP 16; TEMP 36.4; O2SAT 96
[2024-11-14 14:38] VITALS: BP 129/77; PULSE 90; RESP 16; TEMP 36.4; O2SAT 96
--- NOTE | 2024-11-14 14:41 | PC.NURSE ---
Pt came to nurses station to take his 1500 gabapentin 600mg. He wanted to know if this was the medicine he took this morning and I said yes. He said he needs to just take it all at once instead of spacing it out it would make it work better. I attempted to educate pt that is not the best way to take that medication, but he does not hear us well enough or understand us enough and so their is a barrier in how we educate him. He also states that he thinks that the medications we are giving him are causing him to have bowel movements and that he has had three since getting here and that's not good for him it makes him really weak if he has a bm every day. I attempted to let him know that as long as it wasn't diarrhea he would be okay, but he was adamant that is wasn't good for him.
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
[2024-11-14 19:12] VITALS: BP 112/70; PULSE 80; RESP 18; O2SAT 96
[2024-11-14] MEDS: mirtazapine 15 mg Tablet PO (20:40)
[2024-11-14] MEDS: hyDROXYzine 25 mg Capsule 50 MG PO (20:40)
[2024-11-14] MEDS: quetiapine 100 mg Tablet 300 MG PO (20:40)
[2024-11-14] MEDS: trazodone 50 mg Tablet PO (20:40)
[2024-11-15 06:00] VITALS: BP 116/72; PULSE 72; RESP 16; O2SAT 98
[2024-11-15] MEDS: gabapentin 300 mg Capsule 600 MG PO ×3 (08:53→20:08)
[2024-11-15] MEDS: divalproex ER 500 mg Tablet (24H) 1500 MG PO (08:53)
[2024-11-15 14:00] VITALS: BP 109/72; PULSE 80; RESP 17; TEMP 37.3; O2SAT 96
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
[2024-11-15] MEDS: trazodone 50 mg Tablet PO (20:08)
[2024-11-15] MEDS: mirtazapine 15 mg Tablet PO (20:08)
[2024-11-15] MEDS: quetiapine 100 mg Tablet 300 MG PO (20:08)
[2024-11-15 20:24] VITALS: BP 115/60; PULSE 85; RESP 17; TEMP 36.9; O2SAT 98
[2024-11-16 06:00] VITALS: BP 129/79; PULSE 89; RESP 18; O2SAT 97
[2024-11-16] MEDS: divalproex ER 500 mg Tablet (24H) 1500 MG PO (09:52)
[2024-11-16] MEDS: gabapentin 300 mg Capsule 600 MG PO ×3 (09:52→20:39)
[2024-11-16 14:00] VITALS: BP 107/67; PULSE 84; RESP 17; O2SAT 99
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
[2024-11-16 20:13] VITALS: BP 95/66; PULSE 76; RESP 18; TEMP 36.9; O2SAT 96
[2024-11-16] MEDS: quetiapine 100 mg Tablet 300 MG PO (20:39)
[2024-11-16] MEDS: hyDROXYzine 25 mg Capsule 50 MG PO (20:39)
[2024-11-16] MEDS: mirtazapine 15 mg Tablet PO (20:39)
[2024-11-16] MEDS: trazodone 50 mg Tablet PO (20:39)
[2024-11-17 06:00] VITALS: BP 101/57; PULSE 77; RESP 18; TEMP 36.6; O2SAT 96
[2024-11-17] MEDS: gabapentin 300 mg Capsule 600 MG PO ×3 (09:02→20:44)
[2024-11-17] MEDS: divalproex ER 500 mg Tablet (24H) 1500 MG PO (09:02)
[2024-11-17] MEDS: lidocaine 5% Patch 1 PATCH TOPICAL ×2 (09:03→21:25)
[2024-11-17 14:00] VITALS: BP 115/64; PULSE 75; RESP 16; TEMP 36.8; O2SAT 98
--- NOTE | 2024-11-17 16:12 | DCPLANNER ---
IMM was given to pt and rights explained and copy placed in pts file.
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
[2024-11-17 20:20] VITALS: BP 101/60; PULSE 75; RESP 18; TEMP 36.9; O2SAT 95
[2024-11-17] MEDS: trazodone 50 mg Tablet PO (20:44)
[2024-11-17] MEDS: quetiapine 100 mg Tablet 300 MG PO (20:44)
[2024-11-17] MEDS: mirtazapine 15 mg Tablet PO (20:44)
[2024-11-17] MEDS: hyDROXYzine 25 mg Capsule 50 MG PO (20:44)
[2024-11-18 06:00] VITALS: BP 111/65; PULSE 80; RESP 16; TEMP 36.6; O2SAT 96
[2024-11-18] MEDS: divalproex ER 500 mg Tablet (24H) 1500 MG PO (08:06)
[2024-11-18] MEDS: gabapentin 300 mg Capsule 600 MG PO ×3 (08:06→16:15)
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
[2024-11-18 13:59] VITALS: BP 111/65; PULSE 80; RESP 16; TEMP 36.6; O2SAT 98
== END 2024-11-18 16:29 | disposition home or self-care (01) | DRG 880 ==
LOC: ER 16:11 → NP 16:41
PROVIDERS: Admitting Provider Psychiatry & Neurology Psychiatry; Emergency Provider Physician Assistant; Visit Provider Psychiatry & Neurology Psychiatry
DX: F41.9 Anxiety disorder, unspecified (principal); R45.851 Suicidal ideations; F43.10 Post-traumatic stress disorder, unspecified; F17.210 Nicotine dependence, cigarettes, uncomplicated; F32.A Depression, unspecified; Z63.4 Disappearance and death of family member; S29.9XXS Unspecified injury of thorax, sequela; V89.2XXS Person injured in unspecified motor-vehicle accident, traffic, sequela
CPT/HCPCS: 36415; 71045; 80053; 80164; 80306; 80307; 81001; 83880; 84443; 85025; 85610; 93005; 97150; 97165; 99285; J9999

== ENCOUNTER 2024-12-12 11:36 | Emergency (ER) | payer MEDICARE, SELFPAY ==
[2024-12-12 11:36] VITALS: BP 143/77; PULSE 64; RESP 18; TEMP 36.9; O2SAT 95; BMI 30.4
[2024-12-12] MEDS: hyDROXYzine 25 mg Capsule PO (11:49)
--- NOTE | 2024-12-12 12:13 | W.ED.GENADLT ---
HPI - General Adult General: Chief complaint: General Medical Stated complaint: mhe Time Seen by Provider: 12/12/24 11:38 History of Present Illness: 64-year-old male brought in by EMS. Patient reports that he is just really anxious and is concerned that he was started on the wrong medicine. He states he was started on a bipolar medicine is not bipolar. Patient denies any suicidal homicidal ideations. He is more concerned about being really anxious currently and the wrong medications Associated symptoms: Deny chest pain, dyspnea, rash or palpitations Related Data Home Medications ?Medication ?Instructions ?Recorded ?Confirmed amoxicillin 875 mg-potassium 1 tab PO Q12H 10days 12/12/24 12/12/24 clavulanate 125 mg tablet hydrochlorothiazide 25 mg tablet 25 mg PO QAM 12/12/24 12/12/24 prednisone 20 mg tablet 20 mg PO DAILY 12/12/24 12/12/24 promethazine-DM 6.25 mg-15 mg/5 mL 10 ml PO Q6H PRN Cough 12/12/24 12/12/24 oral syrup Previous Rx's ?Medication ?Instructions ?Recorded divalproex 500 mg tablet,extended 1,500 mg (3 x 500 mg) PO DAILY 30 11/18/24 release 24 hr days #90 tabs gabapentin 300 mg capsule 600 mg (2 x 300 mg) PO QID 30 days 11/18/24 #240 caps hydroxyzine pamoate 50 mg capsule 50 mg PO Q6H PRN Anxiety 30 days 11/18/24 #90 caps lidocaine 5 % topical patch 1 patch topical [id number] PRN Pain 11/18/24 30 days #30 ea mirtazapine 15 mg tablet 15 mg PO DAILY 30 days #30 tabs 11/18/24 quetiapine 100 mg tablet 300 mg (3 x 100 mg) PO BEDTIME 30 11/18/24 days #90 tabs trazodone 50 mg tablet 50 mg PO BEDTIME PRN Insomnia 30 11/18/24 days #30 tabs Allergies Allergy/AdvReac Type Severity Reaction Status Date / Time cephalexin Allergy Unknown Verified 07/16/24 15:37 Review of Systems Const: Denies: fever(s) or chills Card: Denies: chest pain or palpitations Resp: Denies: dyspnea, productive cough or wheezing Musc: Denies: back pain or extremity pain Skin/Breast: Denies: rash Psych: Reports: anxiety and panic attacks; Denies: suicidal ideation or homicidal ideation [facility] PFSH: Medical History History of flail chest Family History Father Cancer Social History Smoking and tobacco/nicotine status: current every day tobacco/nicotine user cigarettes Packs smoked per day: 0.24 Alcohol intake: never Substance/Drug Use: never Course Vital Signs: Vital signs: Vital Signs Temperature 98.5 F 12/12/24 11:36 Pulse Rate 64 12/12/24 11:36 Respiratory Rate 18 12/12/24 11:36 Blood Pressure 143/77 12/12/24 11:36 Pulse Oximetry 95 12/12/24 11:36 Oxygen Delivery Me thod Room Air 12/12/24 11:36 MDM - General Adult Medical Decision Making Patient's labs are in he is medically cleared with no concerning findings. I will discharge him and have him follow-up with outpatient behavioral health so he can discuss his medication concerns. Patient was stable and discharged home. He is resting comfortably no signs of anxiety at discharge. Lab Data 12/12/24 12:13 12/12/24 12:13 Laboratory Results WBC 11.27 10^3/uL (3.29-11.43) 12/12/24 12:13 RBC 4.68 10^6/uL (3.85-5.65) 12/12/24 12:13 Hgb 13.70 g/dL (11.27-16.99) 12/12/24 12:13 Hct 42.3 % (37-53) 12/12/24 12:13 MCV 90.4 fl (82-101) 12/12/24 12:13 MCH 29.3 pg (27-33) 12/12/24 12:13 MCHC 32.4 g/dL (30-55) 12/12/24 12:13 RDW 13.2 % (12.1-15.1) 12/12/24 12:13 Plt Count 363 10^3/cmm (157-399) 12/12/24 12:13 MPV 8.8 fL (7.4-10.4) 12/12/24 12:13 Neut % (Auto) 70.5 % 12/12/24 12:13 Lymph % (Auto) 15.3 % 12/12/24 12:13 Love % (Auto) 10.4 % 12/12/24 12:13 Eos % (Auto) 1.9 % 12/12/24 12:13 Baso % (Auto) 0.5 % 12/12/24 12:13 Neut # (Auto) 7.95 10^3/uL (1.8-7.7) H 12/12/24 12:13 Lymph # (Auto) 1.7 10^3/uL (0.8-4.8) 12/12/24 12:13 Love # (Auto) 1.2 10^3/uL (0.2-0.9) H 12/12/24 12:13 Eos # (Auto) 0.2 10^3/uL (0.0-0.8) 12/12/24 12:13 Baso # (Auto) 0.1 10^3/uL (0.0-0.1) 12/12/24 12:13 Nucleated RBC % (auto) 0 % 12/12/24 12:13 Nucleated RBCs # 0.0 /100WBC 12/12/24 12:13 Sodium 141 mmol/L (136-145) 12/12/24 12:13 Potassium 4.3 mmol/L (3.5-5.1) 12/12/24 12:13 Chloride 102 mmol/L (98-107) 12/12/24 12:13 Carbon Dioxide 26 mmol/L (22-29) 12/12/24 12:13 Anion Gap 17.3 (5-19) 12/12/24 12:13 BUN 33 mg/dL (8-23) H 12/12/24 12:13 Creatinine 0.9 mg/dL (0.7-1.2) 12/12/24 12:13 GFR Calculation 84.4 mL/min (90-130) L 12/12/24 12:13 Glucose 100 mg/dL (65-115) 12/12/24 12:13 Calculated Osmolality 299 mOsm/kg (285-295) H 12/12/24 12:13 Calcium 9.0 mg/dL (8.5-10.5) 12/12/24 12:13 Total Bilirubin 0.2 mg/dL (0.15-1.2) 12/12/24 12:13 AST 15 U/L (0-40) 12/12/24 12:13 ALT 30 U/L (0-41) 12/12/24 12:13 Alkaline Phosphatase 68 U/L (40-130) 12/12/24 12:13 Total Protein 7.7 g/dL (6.6-8.7) 12/12/24 12:13 Albumin 3.7 g/dL (3.5-5.2) 12/12/24 12:13 Globulin 4.0 g/dL (1.3-4.6) 12/12/24 12:13 Salicylates < 0.3 mg/dL (3-10) L 12/12/24 12:13 Acetaminophen < 5.0 ug/mL (10-30) L 12/12/24 12:13 Ethyl Alcohol < 10 mg/dL (0-10) 12/12/24 12:13 No radiology studies performed this visit Discharge Plan Discharge Patient Disposition: Home Clinical Impression: Anxiety Condition: Stable Prescriptions: No Action trazodone 50 mg Tablet 50 mg PO BEDTIME PRN (Reason: Insomnia) 30 Days Qty: 30 1RF quetiapine 100 mg Tablet 300 mg PO BEDTIME 30 Days Qty: 90 1RF Rx Instructions: Can dispense 300 mg tablet divalproex 500 mg Tablet Extended Release 24 Hr 1,500 mg PO DAILY 30 Days Qty: 90 1RF gabapentin 300 mg Capsule 600 mg PO QID 30 Days Qty: 240 1RF hydroxyzine pamoate 50 mg capsule 50 mg PO Q6H PRN (Reason: Anxiety) 30 Days Qty: 90 1RF lidocaine 5 % Adhesive Patch,Medicated 1 patch topical [id number] PRN (Reason: Pain) 30 Days Qty: 30 1RF mirtazapine 15 mg tablet 15 mg PO DAILY 30 Days Qty: 30 1RF promethazine-DM 6.25-15 mg/5 mL syrup 10 ml PO Q6H MDD 30ml PRN (Reason: Cough) prednisone 20 mg tablet 20 mg PO DAILY hydrochlorothiazide 25 mg tablet 25 mg PO QAM amoxicillin-pot clavulanate 875-125 mg tablet 1 tab PO Q12H Discharge Orders: Discharge ED (Routine); Ordered 12/12/24 Ordered By: Tr Hernandez Discharge Diet: Usual diet Discharge Activity: Resume usual activity Patient Instructions: Generalized Anxiety Disorder (ED), Opioid Safety, Pain Management Activity Restrictions/Additional Instructions: Please go to the behavioral health crisis center and discuss your concerns with your medications Print Language: Irish Coding Level of Care Code ED Hose Suspender Cutter for Amelia Lyman
[2024-12-12 12:18] LABS: Basophils # 0.1 10^3/uL (0.0-0.1); Basophils % 0.5 %; Eosinophils # 0.2 10^3/uL (0.0-0.8); Eosinophils % 1.9 %; Hematocrit 42.3 % (37-53); Lymphocytes # 1.7 10^3/uL (0.8-4.8); Lymphocytes % 15.3 %; Mean Corpuscular HGB Conc 32.4 g/dL (30-55); Mean Corpuscular Hemoglobin 29.3 pg (27-33); Mean Corpuscular Volume 90.4 fl (82-101); Mean Platelet Volume 8.8 fL (7.4-10.4); Monocytes # 1.2 10^3/uL (0.2-0.9); Monocytes % 10.4 %; Neutrophils # 7.95 10^3/uL (1.8-7.7); Neutrophils % 70.5 %; Nucleated Red Blood Cells % 0 %; Platelet Count 363 10^3/cmm (157-399); Red Blood Count 4.68 10^6/uL (3.85-5.65); Red Cell Distribution Width 13.2 % (12.1-15.1); White Blood Count 11.27 10^3/uL (3.29-11.43)
[2024-12-12 12:40] LABS: Alanine Aminotransferase 30 U/L (0-41); Albumin Level 3.7 g/dL (3.5-5.2); Alkaline Phosphatase 68 U/L (40-130); Anion Gap 17.3 (5-19); Aspartate Amino Transferase 15 U/L (0-40); Blood Urea Nitrogen 33 mg/dL (8-23); Carbon Dioxide 26 mmol/L (22-29); Chloride 102 mmol/L (98-107); Creatinine Clr Calc Pharmacy 111.2732; Glomerular Filtration Rate 84.4 mL/min (90-130); Glucose 100 mg/dL (65-115); Osmolality Calculated 299 mOsm/kg (285-295); Potassium 4.3 mmol/L (3.5-5.1); Sodium 141 mmol/L (136-145); Total Bilirubin 0.2 mg/dL (0.15-1.2); Total Protein 7.7 g/dL (6.6-8.7)
[2024-12-12 12:41] LABS: Acetaminophen < 5.0 ug/mL (10-30); Alcohol Level < 10 mg/dL (0-10); Salicylate < 0.3 mg/dL (3-10)
--- NOTE | 2024-12-12 12:42 | PC.PHAR ---
Pt states he has been taking all the medications given to him but it does not take care of the 3rd pain on his left side. Not exactly sure what that means but he sure wants us to understand it.
== END 2024-12-12 13:44 | disposition home or self-care (01) ==
PROVIDERS: Emergency Provider Student in an Organized Health Care Education/Training Program; PCP Internal Medicine
DX: F41.9 Anxiety disorder, unspecified (principal); F17.210 Nicotine dependence, cigarettes, uncomplicated
CPT/HCPCS: 36415; 80053; 80307; 85025; 99283; J9999

== ENCOUNTER 2025-03-11 12:59 | Emergency (ER) | payer MEDICARE, SELFPAY ==
--- OUTSIDE RECORDS SUMMARY | 2025-03-11 13:03 | XMS_ITS | Encounter Summary ---
Author Organization [facility] Address [address] [place] [address] Care Team Providers Care Geology Faculty Member Name Role Phone Unavailable Primary Care Provider Unavailabl e Reason for Visit * Reason Onset Date Comments General 03/07/2025 Encounter Details Date Type Department Care Team (Late st Contact Info) Description 03/07/2025 Telephone [facility] - Orth[facility] [place] [address] [place] [address] Provider, Abstract NO ADDRESS ON FILE General Social History Tobacco Use Types Packs/Day Years Used Date Smoking Tobacco: Never Assessed Sex and Gender Information Value Date Recorded Sex Assigned at Not on file 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
--- OUTSIDE RECORDS SUMMARY | 2025-03-11 13:03 | XMS_ITS | Encounter Summary ---
Author Organization [facility] Address 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
--- OUTSIDE RECORDS SUMMARY | 2025-03-11 13:03 | XMS_ITS | Clinical Summary ---
Author Organization [facility] Address [address] [facility] [address] [place] [address] Phone Care Team Providers Care Deputy Clerk Of Court Name Role Phone Unavailable Primary Care Provider Unavailabl e Encounters Date Type Department Care Team Description 03/09/2025 External Device Data [facility] Provider, Abstract 03/08/2025 External Device Data [facility] Provider, Abstract 03/08/2025 External Device Data [facility] Provider, Abstract 03/07/2025 Telephone [facility] Orthopedic [facility] [address] [place] [address] Provider, Abstract General from Last 3 Months Social History Tobacco Use Types Packs/Day Years Used Date Smoking Tobacco: Never Assessed Sex and Gender Information Value Date Recorded Sex Assigned at Not on file 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
--- OUTSIDE RECORDS SUMMARY | 2025-03-11 13:03 | XMS_ITS | Encounter Summary ---
Author Organization [facility] Address 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
--- OUTSIDE RECORDS SUMMARY | 2025-03-11 13:03 | XMS_ITS | Encounter Summary ---
Author Organization [facility] Address 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
[2025-03-11 13:20] VITALS: BP 161/76; PULSE 87; RESP 24; TEMP 36.3; O2SAT 97
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
[2025-03-11] MEDS: ondansetron 2 mg/ML SDV 2 mL 4 MG IVP (13:42)
[2025-03-11 13:44] LABS: Hematocrit 43.9 % (37-53); Hemoglobin 14.60 g/dL (11.27-16.99); Mean Corpuscular HGB Conc 33.3 g/dL (30-55); Mean Corpuscular Hemoglobin 29.7 pg (27-33); Mean Corpuscular Volume 89.4 fl (82-101); Nucleated Red Blood Cells % 0 %; Platelet Count 278 10^3/cmm (157-399); Red Blood Count 4.91 10^6/uL (3.85-5.65); White Blood Count 6.73 10^3/uL (3.29-11.43)
--- NOTE | 2025-03-11 13:45 | XR_ITS ---
WS: [id number] XR abdomen 1V* [id number] REASON FOR EXAM: abd pain FINDINGS: No free air or retroperitoneal air. Significant volume of retained fecal material throughout the colon. Small amount of retained fecal material within the rectum. No small bowel distention. No mass or organomegaly. XR/XR abdomen 1V* [id number] IMPRESSION: No acute abnormality. Significant volume of retained stool as above.
[2025-03-11 14:08] LABS: Alanine Aminotransferase 39 U/L (0-41); Albumin Level 4.3 g/dL (3.5-5.2); Alkaline Phosphatase 95 U/L (40-130); Anion Gap 16.9 (5-19); Aspartate Amino Transferase 20 U/L (0-40); Blood Urea Nitrogen 32 mg/dL (8-23); Calcium 9.4 mg/dL (8.5-10.5); Carbon Dioxide 29 mmol/L (22-29); Chloride 98 mmol/L (98-107); Creatinine Clr Calc Pharmacy 126.1592; Globulin 3.6 g/dL (1.3-4.6); Glucose 102 mg/dL (65-115); Lipase 38 U/L (13-60); Osmolality Calculated 297 mOsm/kg (285-295); Potassium 3.9 mmol/L (3.5-5.1); Sodium 140 mmol/L (136-145); Total Protein 7.9 g/dL (6.6-8.7)
== END 2025-03-11 14:41 | disposition home or self-care (01) ==
PROVIDERS: Emergency Provider Emergency Medicine; PCP Internal Medicine
DX: K59.00 Constipation, unspecified (principal); F17.210 Nicotine dependence, cigarettes, uncomplicated
CPT/HCPCS: 36415; 74018; 80053; 83690; 85025; 96374; 99285; J2405

== ENCOUNTER 2025-05-12 20:48 | Emergency (ER) | payer MEDICARE, SELFPAY ==
--- OUTSIDE RECORDS SUMMARY | 2024-11-04 04:30 | XMS_ITS ---
Author Organization [facility] Address [address] [place] [id number] Care Team Providers Care Aircraft Structural Fitter Name Role Phone [place], Liana Unavailable [phone] REASON FOR VISIT 2 month F/U Social History Sex Assigned At : Social History Observation Description Sex Assigned At Male Encounters Encounter Location Date Provider Diagnosis [facility] [address] [address] 11/04/2024 Liana Urias Plan Of Treatment No Information Progress Notes * Carlo COLVIN EDOB:1960 (65 yo M)Acc No.[id number]:11/04/2024 Patient: Catherine Carlo BARKLEY Provider: Catherine Urias :1960 A ge:64 Y S ex:Male Date:11/04/2024 Address:[address] [place] [address] [place]AC[place]IO , NAVEED [id number] Subjective: * Chief Complaints: * 1 . 2 month F/U. * Medical History: Objective: * Vitals: Assessment: Plan: * Treatment: * Billing Information: * Visit Code: * Procedure Codes: * Electronic signature of ANYA Cohen iCM on 05/12/2025 at 08:55 PM [employer] Sign off status: Pending * Provider: Catherine Urias Date: 0 11/04/2024 Generated for Printi ng/Faxing/eTransmitting on: 1 07/12/2024 08:55 PM [employer]
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
--- OUTSIDE RECORDS SUMMARY | 2025-01-26 03:20 | XMS_ITS ---
Author Organization [facility] Address [address] [place] [address] Care Team Providers Care Gas Adjuster Name Role Phone None, None Primary Care Provider Yuliya Brambila Unavailable [phone] Mata Goodson Unavailable [phone] Medications Medication SIG (Take, Route, Frequency, Duration) Notes Start Date End Date Status Reglan 10 MG Tablet 1 tablet Orally 30 minutes prior to starting colon prep; Duration: 1 days 10/18/2024 Active SEROquel 100 MG Tablet 2 tablet Orally O nce a day Active Remeron 15 MG Tablet 1 tablet at bedtime Orally Once a day Active Depakote 500 MG Tablet Delayed Release 2 tablet Orally Twice a day Active Pantoprazole Sodium 40 MG Tablet Delayed Release 1 tablet 1/2 to 1 hour before morning meal Orally BID Active Golytely 236 GM Solution Reconstituted 240ml Orally [id number]; Duration: 1 days 10/18/2024 Active Problems Problem Type SNOMED Code ICD Code Onset Dates Problem Status W/U Status Risk Notes Problem Chronic pain syndrome (074561745) Chronic pain syndrome (G89.4) Active confirmed Encounters Encounter Location Date Provider Diagnosis Formerly [facility], [facility] Interventional Pain Management [address] [id number] 01/26/2025 Mata Goodson Chronic pain syndrome G89.4 Assessments Encounter Date Diagnosis (ICD Code) Assessment Notes Treatment Notes Treatment Clinical Notes Section Notes 01/26/2025 Chronic pain syndrome (ICD-10 - G89.4) Plan Of Treatment No Information History and Physical Notes * HPI (History of Present Illness) Category Sub-Category Detail Notes Category Not es Pain Details Pain Location ___ Duration ___ Onset ___ Frequency of Pain ___ Quality ___ Radiation ___ Severity of pain at its worst ___ Severity of pain at its best ___ Severity of average pain ___ Severity of pain right now ___ Worsening factors ___ Relieving factors ___ Associated symptoms ___ Severity of pain on medication ___ When did you last take your pain medicin e ___ Opioid Assessment Tools Pill Count ___ Today's Rapid Urine Drug Screen ___ [place] Prescription Monitoring Program ___ SOAPP-R (Screener/Opioid Assessment for Patient) ___ Today's SOAPP-R Score ___ Treatment History Caregivers you have visited ___ Test undergone in the past ___ Past medication you have taken ___ Treatments you have had ___ Were prior treatments of any help? ___ When was prior treatment started? ___ STOP-BANG Questionnaire Do you snore tito dly (louder than talking or loud enough to be heard through closed doors)? ___ Do you often feel tired, fatigued, or sl eepy during the day? ___ Has anyone observed you stop breathing d uring your sleep ___ Do you have or are you being treated for high blood pressure? ___ BMI greater than 35 kg/m2? ___ Age over 50 years old? ___ Gender: Male ___ Neck circumference is measured greater t sahu 40cm? ___ Score ___ Oxygen ___ CPAP ___ Progress Notes * Carlo COLVIN EDOB:1960 (65 yo M)Acc No.[id number]:01/26/2025 Progress Notes Patient: Carlo De Leon Skylar Provider: Callie Goodson D.O. :1960 A ge:65 Y S ex:Male Date:01/26/2025 Address:[address] [place], [place] [address], [id number] Subjective: * Chief Complaints: * HPI: P ain Details: Pain Location _ __. Duration _ __. Onset _ __. Frequency of Pain _ __. Quality _ __. Radiation _ __. Severity of pain at its worst _ __. Severity of pain at its best _ __. Severity of pain on medication _ __. Severity of average pain _ __. Severity of pain right now _ __. Worsening factors _ __. Relieving factors _ __. Associated symptoms _ __. When did you last take your pain medicine _ __. O pioid Assessment Tools: SOAPP-R (Screener/Opioid Assessment for Patient) _ __. Today's SOAPP-R Score _ __. Pill Count _ __. Today's Rapid Urine Drug Screen _ __. [place] Prescription Monitoring Program _ __. T reatment History: Caregivers you have visited _ __. Test undergone in the past _ __. Past medication you have taken _ __. Treatments you have had _ __. Were prior treatments of any help? _ __. When was prior treatment started? _ __. S TOP-BANG Questionnaire: Do you snore loudly (louder than talking or loud enough to be heard through closed doors)? _ __. Do you often feel tired, fatigued, or sleepy during the day??___. Has anyone observed you stop breathing during your sleep _ __. Do you have or are you being treated for high blood pressure??___. BMI greater than 35 kg/m2? _ __. Age over 50 years old? _ __. Gender: Male _ __. Neck circumference is measured greater than 40cm? _ __.? Score _ __. Oxygen _ __. CPAP _ __. * ROS: G eneral - Multi System: Constitutional D eniesfever, fatigue, weight gain, weight loss, sleep difficulty. R espiratory D enies, cough, shortness of breath, COPD/emphysema, sleep apnea, wheezing, snoring. G astrointestinal?Denies, nausea, vomiting, constipation, diarrhea, abdominal pain. N eurologic D enies, headaches, numbness, weakness, memory loss, excessive sedation. P sychiatric D enies depression, anxiety, suicidal thoughts/actions, panic attacks. * Medications: T akingDepakote 500 MG Tablet Delayed Release 2 tablet Orally Twice a day Golytely 236 GM Solution Reconstituted 240ml Orally [id number] Pantoprazole Sodium 40 MG Tablet Delayed Release 1 tablet 1/2 to 1 hour before morning meal Orally BID Reglan 10 MG Tablet 1 tablet Orally 30 minutes prior to starting colon prep Remeron 15 MG Tablet 1 tablet at bedtime Orally Once a day SEROquel 100 MG Tablet 2 tablet Orally Once a day Taking Depakote 500 MG Tablet Delayed Release 2 tablet Orally Twice a day Taking Golytely 236 GM Solution Reconstituted 240ml Orally [id number] Taking Pantoprazole Sodium 40 MG Tablet Delayed Release 1 tablet 1/2 to 1 hour before morning meal Orally BID Taking Reglan 10 MG Tablet 1 tablet Orally 30 minutes prior to starting colon prep Taking Remeron 15 MG Tablet 1 tablet at bedtime Orally Once a day Taking SEROquel 100 MG Tablet 2 tablet Orally Once a day Assessment: * Assessment: 1. C hronic pain syndrome - G89.4 (Primary) Billing Information: * Procedure Codes: * Electronic signature of Mata Goodson DO on 05/12/2025 at 08:55 PM WORK AND FAMILY LIFE CONSULTANT Sign off status: Pending * Provider: Callie Goodson D.O. Date: 0 01/26/2025 Generated for Toni bullock/Livan/Selene on: 1 07/12/2024 08:55 PM WORK AND FAMILY LIFE CONSULTANT
--- OUTSIDE RECORDS SUMMARY | 2025-03-30 08:30 | XMS_ITS ---
Author Organization [facility] Address [address] [place] [id number] Care Team Providers Care Money Examiner Name Role Phone [place], Liana Unavailable [phone] REASON FOR VISIT follow-up hospitalization (call for records)-DIL will accompany pt to this appt cl 03/29/25; CCA Social History Sex Assigned At : Social History Observation Description Sex Assigned At Male Encounters Encounter Location Date Provider [facility] [address] [address] 03/30/2025 Liana Urias Plan Of Treatment No Information Progress Notes * Carlo COLVIN EDOB:1960 (65 yo M)Acc No.[id number]:03/30/2025 Patient: Catherine Carlo BARKLEY Provider: Catherine Urias :1960 A ge:65 Y S ex:Male Date:03/30/2025 Address:[address] [place] [address] HERACLIO ULRICH, BESS [facility] [id number] Subjective: * Chief Complaints: * 1 . follow-up hospitalization (call for records)-DIL will accompany pt to this appt cl 03/29/25; CCA. * Medical History: Objective: * Vitals: Assessment: Plan: * Treatment: * Billing Information: * Visit Code: * Procedure Codes: * Electronic signature of ANYA Cohen iCM on 05/12/2025 at 08:56 PM GAS COMPRESSOR TURBINE OPERATOR Sign off status: Pending * Provider: Catherine Urias Date: 1 Generated for Toni bullock/Livan/Selene on: 1 07/12/2024 08:56 PM GAS COMPRESSOR TURBINE OPERATOR
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
--- OUTSIDE RECORDS SUMMARY | 2025-05-04 08:30 | XMS_ITS ---
Author Organization [facility] Address [address] [place] [phone] Care Team Providers Care Clinical Research Nurse Coordinator Name Role Phone Ladarius Uriasi Unavailable [phone] REASON FOR VISIT follow-up hospitalization (STAT records requested 05/04/25 - [facility]) Social History Sex Assigned At : Social History Observation Description Sex Assigned At Male Encounters Encounter Location Date Provider Diagnosis Activity [facility] [address] [address] 05/04/2025 Liana Urias Plan Of Treatment No Information Progress Notes * Carlo COLVIN EDOB:1960 (65 yo M)Acc No.[id number]:05/04/2025 Patient: Ej MARTINEZnn Skylar Provider: Catherine Urias :1960 A ge:65 Y S ex:Male Date:05/04/2025 Address:[address] [place] [address] HERACLIO ULRICH, Megha LUQUEHECTOR [id number] Subjective: * Chief Complaints: * 1 . follow-up hospitalization (STAT records requested 05/04/25 - [facility]). * Medical History: Objective: * Vitals: Assessment: Plan: * Treatment: * Billing Information: * Visit Code: * Procedure Codes: * Electronic signature of TIGRE Cohen iPBCMSMagan on 05/12/2025 at 08:56 PM QUARTER BACKER Sign off status: Pending * Provider: Catherine Urias Date: 07/04/2024 Generated for Toni bullock/Livan/eTransmitting on: 07/12/2024 08:56 PM QUARTER BACKER
--- OUTSIDE RECORDS SUMMARY | 2025-05-05 09:00 | XMS_ITS ---
Author Organization [facility] [employer] [facility] Address [address] [place] [phone] Care Team Providers Care Pharmacy Coordinator Name Role Phone [place], Liana Unavailable [phone] REASON FOR VISIT 1 month f/u Social History Sex Assigned At : Social History Observation Description Sex Assigned At Male Encounters Encounter Location Date Provider Diagnosis [facility] [employer] [address] [address] 05/05/2025 Liana Urias Plan Of Treatment No Information Progress Notes * Carlo COLVIN EDOB:1960 (65 yo M)Acc No.[id number]:05/05/2025 Patient: Catherine Carlo BARKLEY Provider: Catherine Urias :1960 A ge:65 Y S ex:Male Date:05/05/2025 Address:[address] [place] [address] HERACLIO , NAVEED [id number] Subjective: * Chief Complaints: * 1 . 1 month f/u. * Medical History: Objective: * Vitals: Assessment: Plan: * Treatment: * Billing Information: * Visit Code: * Procedure Codes: * Electronic signature of ANYA Cohen iCMSMagan on 05/12/2025 at 08:55 PM MILK PASTEURIZER Sign off status: Pending * Provider: Catherine Urias Date: 07/05/2024 Generated for Printi ng/Faxing/eTransmitting on: 07/12/2024 08:55 PM MILK PASTEURIZER
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
[2025-05-12 20:50] VITALS: BP 117/71; PULSE 92; RESP 18; TEMP 36.6; O2SAT 96; BMI 29.9
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
--- OUTSIDE RECORDS SUMMARY | 2025-05-12 20:56 | XMS_ITS | Clinical Summary ---
Author Organization [facility] Address [address] [facility] [address] [place] [address] Phone Care Team Providers Care Continuous Improvement Black Belt Name Role Phone Unavailable Primary Care Provider Unavailabl e Encounters Date Type Department Care Team Description 04/20/2025 External Device Data [facility] Provider, Abstract 04/19/2025 External Device Data [facility] Provider, Abstract 03/09/2025 External Device Data [facility] Provider, Abstract 03/08/2025 External Device Data [facility] Provider, Abstract 03/08/2025 External Device Data [facility] Provider, Abstract 03/07/2025 Telephone [facility] [address] [phone] Provider, Abstract General from Last 3 Months Social History Tobacco Use Types Packs/Day Years Used Date Smoking Tobacco: Never Assessed Sex and Gender Information Value Date Recorded Sex Assigned at Not on file Legal 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
[2025-05-12 21:01] VITALS: BP 111/72; O2SAT 95
--- NOTE | 2025-05-12 21:28 | W.ED.ANXIETY ---
HPI - Anxiety General: Chief Complaint: Anxiety Stated Complaint: wants medication change Time Seen by Provider: 05/12/25 20:48 History of Present Illness: Patient is a 65-year-old male with past medical history of A-fib, anxiety who presents to the ED via police for anxiety and concerns of homicidal ideation. Patient is on Depakote, Atarax, Cymbalta for his anxiety and states he needs either another medication or increase in dosage. Police were originally at his house and wrote an affidavit for concerns of homicidal ideation to his , they saw various loaded guns in the house and brought him here for further evaluation. He denies wanting to hurt his , states that he cannot communicate with her very well because she has advanced dementia. Patient was admitted inpatient to psychiatry here earlier this year and had a similar presentation ultimately discharged with the above medications, was on gabapentin but he states it was not working for him so he took himself off. Denies any medical complaints at this time. Related Data Previous Rx's ?Medication ?Instructions ?Recorded gabapentin 300 mg capsule 600 mg (2 x 300 mg) PO QID 30 days 11/18/24 #240 caps hydroxyzine pamoate 50 mg capsule 50 mg PO Q6H PRN Anxiety 30 days 11/18/24 #90 caps lidocaine 5 % topical patch 1 patch topical [id number] PRN Pain 11/18/24 30 days #30 ea aripiprazole 5 mg tablet (Abilify) 5 mg PO DAILY #30 tabs 01/20/25 divalproex 500 mg tablet,extended 1,500 mg (3 x 500 mg) PO DAILY 30 01/20/25 release 24 hr days #90 tabs hydrochlorothiazide 25 mg tablet 25 mg PO QAM #30 tabs 01/20/25 mirtazapine 15 mg tablet 15 mg PO DAILY 30 days #30 tabs 01/20/25 polyethylene glycol 3350 17 gram 17 g PO DAILY PRN constipation #14 03/11/25 oral powder packet (Miralax) ea Allergies Allergy/AdvReac Type Severity Reaction Status Date / Time cephalexin Allergy Unknown Verified 03/11/25 13:25 Review of Systems General: Reports: 10 or more systems reviewed and unremarkable except in HPI and below Psych: Reports: anxiety and homicidal ideation ON LICENSE OF [facility] ED PFSH: Medical History (Updated 03/19/25 @ 00:00 by RADHA Luevano) Psychiatric care History of flail chest Family History Father Cancer Social History Smoking and tobacco/nicotine status: current every day tobacco/nicotine user cigarettes Packs smoked per day: 0.24 Alcohol intake: never Substance/Drug Use: never Physical Exam Narrative: EXAM NARRATIVE: Patient overall well-appearing, vital stable on arrival, afebrile, no acute distress. Very hard of hearing but seemingly answering questions and following commands appropriately, GCS 15, spontaneously and symmetrically moving all 4 extremities. Anxious, denies active SI or HI at this time. Breathing comfortably on room air, saturating well, able to speak in full sentences without getting short of breath. Normal sinus rhythm, no leg swelling, 2+ pulses throughout, abdomen soft, nontender and nondistended. Course Vital Signs: Vital signs: Vital Signs Temperature 98 F 05/12/25 20:50 Pulse Rate 92 05/12/25 20:50 Respiratory Rate 18 05/12/25 20:50 Blood Pressure 111/72 05/12/25 21:52 Pulse Oximetry 95 05/12/25 21:01 Oxygen Delivery Me thod Room Air 05/12/25 21:01 MDM - Anxiety Medical Decision Making -ddx: TRACEY, panic attack, homicidal ideation, acute psychosis - Patient overall well-appearing, very hard of hearing, when asked about his medications, things outlets tonight and his overall emotions, keeps stating that he needs an increase in his psychiatric medications, denies any active homicidal ideation and that he cannot communicate with his while because of her dementia so he does not know how this happened. An affidavit was signed by police and there are loaded guns in the house, with previous psych history, will get medical clearance labs and place patient under 96-hour hold and admit to psychiatry. Patient requesting something for sleep, 50 mg of trazodone ordered. - Patient improved mildly with trazodone and was able to rest. His medical clearance labs were overall reassuring for no acute medical pathology, no ingestion, no systemic signs of infection, no endorgan damage. Patient was then deemed medically cleared for admission to the psychiatric unit, in stable condition at this time, no further psychiatric medications needed. Lab Data 05/12/25 22:07 05/12/25 22:07 Laboratory Results WBC 6.13 10^3/uL (3.29-11.43) 05/12/25 22: RBC 4.56 10^6/uL (3.85-5.65) 05/12/25 22:07 Hgb 13.40 g/dL (11.27-16.99) 05/12/25 22:07 Hct 41.7 % (37-53) 05/12/25 22:07 MCV 91.4 fl (82-101) 05/12/25 22:07 MCH 29.4 pg (27-33) 05/12/25:07 MCHC 32.1 g/dL (30-55) 05/12/25 22:07 RDW 12.9 % (12.1-15.1) 05/12/25 22:07 Plt Count 184 10^3/cmm (157-399) 05/12/25 22:07 MPV 10.2 fL (7.4-10.4) 05/12/25 22:07 Neut % (Auto) 51.9 % 05/12/25 22:07 Lymph % (Auto) 31.2 % 05/12/25 22:07 [place] % (Auto) 9.6 % 05/12/25 22:07 Eos % (Auto) 5.7 % 05/12/25 22:07 Baso % (Auto) 1.1 % 05/12/25:07 Neut # (Auto) 3.18 10^3/uL (1.8-7.7) 05/12/25 22:07 Lymph # (Auto) 1.9 10^3/uL (0.8-4.8) 05/12/25 22:07 [place] # (Auto) 0.6 10^3/uL (0.2-0.9) 05/12/25 22:07 Eos # (Auto) 0.4 10^3/uL (0.0-0.8) 05/12/25 22:07 Baso # (Auto) 0.1 10^3/uL (0.0-0.1) 05/12/25 22:07 Nucleated RBC % (auto) 0 % 05/12/25 22:07 Nucleated RBCs # 0.0 /100WBC 05/12/25 22:07 Sodium 143 mmol/L (136-145) 05/12/25 22:07 Potassium 4.2 mmol/L (3.5-5.1) 05/12/25 22:07 Chloride 106 mmol/L (98-107) 05/12/25 22:07 Carbon Dioxide 29 mmol/L (22-29) 05/12/25 22:07 Anion Gap 12.2 (5-19) 05/12/25 22:07 BUN 16 mg/dL (8-23) 05/12/25 22:07 Creatinine 0.9 mg/dL (0.7-1.2) 05/12/25 22:07 GFR Calculation 84.2 mL/min (90-130) L 05/12/25 22:07 Glucose 115 mg/dL (65-115) 05/12/25 22:07 Calculated Osmolality 298 mOsm/kg (285-295) H 05/12/25 22:07 Calcium 8.7 mg/dL (8.5-10.5) 05/12/25 22:07 Total Bilirubin 0.2 mg/dL (0.15-1.2) 05/12/25 22:07 AST 15 U/L (0-40) 05/12/25 22:07 ALT 18 U/L (0-41) 05/12/25 22:07 Alkaline Phosphatase 89 U/L (40-130) 05/12/25 22:07 Total Protein 6.8 g/dL (6.6-8.7) 05/12/25 22:07 Albumin 3.9 g/dL (3.5-5.2) 05/12/25 22:07 Globulin 2.9 g/dL (1.3-4.6) 05/12/25 22:07 Salicylates 0.7 mg/dL (3-10) L 05/12/25 22:07 Urine Opiates Screen Negative ng/mL (Negative) 05/12/25 21:49 Acetaminophen < 5.0 ug/mL (10-30) L 05/12/25 22:07 Ur Barbiturates Screen Negative ng/mL (Negative) 05/12/25 21:49 Ur Phencyclidine Scrn Negative ng/mL (Negative) 05/12/25 21:49 Ur Amphetamines Screen Negative ng/mL (Negative) 05/12/25 21:49 U Benzodiazepines Scrn Negative ng/mL (Negative) 05/12/25 21:49 Urine Cocaine Screen Negative ng/mL (Negative) 05/12/25 21:49 U Marijuana (THC) Screen Negative ng/mL (Negative) 05/12/25 21:49 Ethyl Alcohol < 10 mg/dL (0-10) 05/12/25 22:07 No radiology studies performed this visit Discharge Plan Discharge Condition: Stable Prescriptions: No Action aripiprazole [Abilify] 5 mg tablet 5 mg PO DAILY Qty: 30 3RF divalproex 500 mg tablet extended release 24 hr 1,500 mg PO DAILY 30 Days Qty: 90 1RF mirtazapine 15 mg tablet 15 mg PO DAILY 30 Days Qty: 30 1RF hydrochlorothiazide 25 mg tablet 25 mg PO QAM Qty: 30 3RF polyethylene glycol 3350 [Miralax] 17 gram powder in packet 17 g PO DAILY PRN (Reason: constipation) Qty: 14 0RF gabapentin 300 mg Capsule 600 mg PO QID 30 Days Qty: 240 1RF hydroxyzine pamoate 50 mg capsule 50 mg PO Q6H PRN (Reason: Anxiety) 30 Days Qty: 90 1RF lidocaine 5 % Adhesive Patch,Medicated 1 patch topical [id number] PRN (Reason: Pain) 30 Days Qty: 30 1RF Print Language: Andorran Coding Level of Care Code ED [employer] for Amelia Lyman
[2025-05-12 21:52] VITALS: BP 111/72
[2025-05-12 22:09] LABS: PCP Screen Urine Negative (Negative)
--- NOTE | 2025-05-12 22:19 | PC.NURSE ---
96 Hour Involuntary Hold Patient Rights have been read to the patient and a copy of the same has been provided to him. Bit Welder Apple Griggs was present at bedside during presentation of Rights.
[2025-05-12 22:43] LABS: Hematocrit 41.7 % (37-53); Hemoglobin 13.40 g/dL (11.27-16.99); Mean Corpuscular HGB Conc 32.1 g/dL (30-55); Mean Corpuscular Hemoglobin 29.4 pg (27-33); Mean Corpuscular Volume 91.4 fl (82-101); Nucleated Red Blood Cells % 0 %; Platelet Count 184 10^3/cmm (157-399); Red Blood Count 4.56 10^6/uL (3.85-5.65); White Blood Count 6.13 10^3/uL (3.29-11.43)
[2025-05-12 22:45] LABS: Alanine Aminotransferase 18 U/L (0-41); Albumin Level 3.9 g/dL (3.5-5.2); Alkaline Phosphatase 89 U/L (40-130); Anion Gap 12.2 (5-19); Aspartate Amino Transferase 15 U/L (0-40); Blood Urea Nitrogen 16 mg/dL (8-23); Calcium 8.7 mg/dL (8.5-10.5); Carbon Dioxide 29 mmol/L (22-29); Chloride 106 mmol/L (98-107); Globulin 2.9 g/dL (1.3-4.6); Glucose 115 mg/dL (65-115); Osmolality Calculated 298 mOsm/kg (285-295); Potassium 4.2 mmol/L (3.5-5.1); Salicylate 0.7 mg/dL (3-10); Sodium 143 mmol/L (136-145); Total Protein 6.8 g/dL (6.6-8.7)
[2025-05-12 22:50] LABS: Acetaminophen < 5.0 ug/mL (10-30); Alcohol Level < 10 mg/dL (0-10)
--- NOTE | 2025-05-13 00:47 | ECG_ITS ---
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 Measurements Intervals [place] Rate: 80 P: 0 SC: 0 QRS: -11 QRSD: 114 T: 60 QT: 370 QTc: 428 Interpretive Statements ATRIAL FIBRILLATION MODERATE INTRAVENTRICULAR CONDUCTION DELAY [110+ ms QRS DURATION] NONSPECIFIC ST & T-WAVE ABNORMALITY ABNORMAL RHYTHM ECG Compared to ECG 11/04/2024 14:02:42 Intraventricular conduction delay now present Sinus rhythm no longer present T-wave abnormality still present Electronically Signed On 05-14-2025 14:06:11 [employer] NURSERY SPECIALIST by Angeles Swan M.D. [email or web address]
[2025-05-13 01:25] VITALS: BP 113/70; PULSE 82; O2SAT 96
[2025-05-13 01:46] LABS: Respiratory Syncytial Virus Ce NEGATIVE (Negative); SARS-CoV-2 PCR NEGATIVE (Negative)
[2025-05-13 02:03] LABS: Glucose Urine UA Negative (Normal); Nitrate Urine Negative (Negative)
[2025-05-13 02:08] LABS: Add Urine Microscopic? YES
[2025-05-13 02:24] LABS: Specific Gravity, Urine 1.034 (1.005-1.030)
[2025-05-13 02:25] LABS: UA Slide Review UA Slide Review Perf
--- NOTE | 2025-05-13 08:40 | PC.PHAR ---
will call [facility] when [facility] open at 9am for med list. 05/13/25
[2025-05-13 08:58] VITALS: BP 127/81; PULSE 82; RESP 17; O2SAT 96
--- NOTE | 2025-05-13 09:35 | PC.PHAR ---
Pt had a few medications changed 04/29/25. He is non compliant a lot of the time and is unable to verify what he takes. Med list provided by [facility]
[2025-05-13 10:40] VITALS: BP 112/73; PULSE 86; O2SAT 96
== END 2025-05-13 10:43 ==
PROVIDERS: Emergency Provider Student in an Organized Health Care Education/Training Program
DX: F41.8 Other specified anxiety disorders (principal); F41.0 Panic disorder [episodic paroxysmal anxiety]; R45.850 Homicidal ideations; F23 Brief psychotic disorder; F17.210 Nicotine dependence, cigarettes, uncomplicated
CPT/HCPCS: 36415; 80053; 80306; 80307; 81001; 85025; 87637; 93005; 99285; J9999